=== PATIENT | male | born 1990 | race Caucasian/White ===

== ENCOUNTER 2023-05-20 08:30 | Emergency (ER) | payer OTHER, SELFPAY ==
[2023-05-20 08:33] VITALS: BP 145/99; PULSE 108; RESP 20; O2SAT 97; BMI 47.4
[2023-05-20 08:46] VITALS: O2SAT 97
--- NOTE | 2023-05-20 08:48 | CT_ITS ---
[address] [address] Patient Name: CECE SIERRA MRN: [id number] date: 1990 Sex: M Assigned Patient Location: ER Current Patient Location: .[facility] Accession/Order Number: [id number] Exam Date: 05/20/2023 09:08 Report Date: 05/20/2023 09:47 At the request of: AYDE BECKETT Procedure: CT soft tissue neck w con EXAM: CT soft tissue neck w con CLINICAL INDICATION: tonsillar enlargement for 1 month COMPARISON: None TECHNIQUE: Standard enhanced CT of the neck following intravenous administration of 75 cc of Isovue 370. Axial sections with coronal and sagittal reformats were obtained. Dose reduction techniques were achieved by using automated exposure control and/or adjustment of mA and/or kV according to patient size and/or use of iterative reconstruction technique. FINDINGS: Nasopharynx: Normal. Suprahyoid Neck: The homogeneous bilateral palatine tonsils are enlarged, contact each other in the midline, and result in oropharyngeal airway narrowing. No abnormal striated enhancement pattern. No peritonsillar fat stranding. Oropharynx, oral cavity, parapharyngeal, and retropharyngeal spaces are clear and symmetric. Infrahyoid Neck: Larynx, hypopharynx, and supraglottic area are clear and symmetric. Vocal cords are symmetric. Lymph Nodes: No extranodal soft tissue mass, abnormal enhancement, or fat stranding. Numerous nonenlarged and prominent bilateral cervical chain lymph nodes. Several of these are enlarged with the largest measuring 1.4 cm (left level VA). Given the constraint of beam hardening artifact at the thoracic inlet, there are multiple enlarged supraclavicular lymph nodes. Parotid Glands: Normal. Submandibular Glands: Normal. Thyroid: Normal. Paranasal Sinuses: Trace left maxillary sinus mucosal thickening. Mastoid Air Cells: Well-aerated. Skull Base: Normal. Thoracic Inlet: Visualized lung apices are clear. Vascular Structures: Symmetric and patent. Musculoskeletal: No acute osseous abnormality. Minimal multilevel cervical spondylotic changes. CT/CT soft tissue neck w con IMPRESSION: Enlarged bilateral palatine tonsils contact each other in the midline and result in oropharyngeal airway narrowing. No abnormal enhancement or peritonsillar fat stranding to suggest an infectious/inflammatory process. This finding in conjunction with multiple nonenlarged, prominent, and enlarged lymph nodes in the neck and supraclavicular spaces are concerning for a lymphoproliferative process. This could also be reactive with tonsillar hyperplasia. Further clinical workup is recommended. Electronically authenticated by: ANAYA WAY Date: 05/20/2023 09:47
[2023-05-20 08:55] LABS: Basophils Percent Auto 0.4 % (0.2-2.0); Eosinophils Absolute Auto 0.1 10^3/uL (0.0-0.7); Hematocrit 46.9 % (42.0-54.0); Hemoglobin 15.2 g/dL (14.0-18.0); Immature Granulocytes Abs Auto 0.04 10^3/uL (0.00-0.03); Immature Granulocytes Pct Auto 0.4 % (0.0-0.5); Lymphocytes Absolute Auto 2.6 10^3/uL (1.2-3.8); Lymphocytes Percent Auto 24.1 % (20.5-60.0); Mean Corpuscular HGB Conc 32.4 g/dL (29.9-35.2); Mean Corpuscular Hemoglobin 27.2 pg (25.9-34.0); Mean Corpuscular Volume 84.1 fL (80.0-94.0); Mean Platelet Volume 10.1 fL (9.5-13.5); Monocytes Absolute Auto 0.7 10^3/uL (0.3-0.8); Monocytes Percent Auto 6.8 % (1.7-12.0); Neutrophils Absolute Auto 7.3 10^3/uL (1.4-6.5); Neutrophils Percent Auto 67.3 % (43.0-75.0); Platelet Count 227 10^3/uL (150-450); Red Blood Count 5.58 10^6/uL (4.70-6.10); Red Cell Distribution Width 14.1 % (11.0-15.0); White Blood Count 10.9 10^3/uL (4.0-11.0)
[2023-05-20] MEDS: 0.9 % SODIUM CHLORIDE 1,000 ML 1000 ML IV (09:02)
[2023-05-20 09:06] LABS: Alanine Aminotransferase 28 U/L (16-63); Albumin Globulin Ratio 0.9; Albumin Level 3.8 g/dL (3.4-5.0); Alkaline Phosphatase 96 U/L (46-116); Anion Gap 12.9; Aspartate Amino Transferase 16 U/L (15-37); BUN Creatinine Ratio 14.6; Bilirubin Total 0.7 mg/dL (0.2-1.0); Calcium 8.9 mg/dL (8.5-10.1); Carbon Dioxide 28.9 mmol/L (21.0-32.0); Chloride 102 mmol/L (98-107); Estimated GFR (African America >60 (>=60); Estimated GFR (Non-African Ame >60 (>=60); Globulin 4.3 g/dL; Glucose 136 mg/dL (74-106); Potassium 3.8 mmol/L (3.5-5.1); Sodium 140 mmol/L (136-145); Total Protein 8.1 g/dL (6.4-8.2)
[2023-05-20 09:32] VITALS: BP 124/93; PULSE 88; RESP 18; TEMP 36.7; O2SAT 94
[2023-05-20] MEDS: DEXAMETHASONE SOD PHOS 10 MG/ML VIAL IV (10:25)
[2023-05-20] MEDS: AMPICILLIN SODIUM/SULBACTAM NA 3 GM in 0.9 % SODIUM CHLORIDE 100 ML IV (10:25)
--- NOTE | 2023-05-20 10:30 | ED_ITS ---
HPI - General Adult General Chief complaint: Upper Respiratory Infection Stated complaint: SORE THROAT Time Seen by Provider: 05/20/23 08:40 Source: patient Mode of arrival: walk-in Limitations: no limitations History of Present Illness HPI narrative: Is coming to the office with sore throat that he has been complaining of since February he mentioned that he was supposed to follow-up with ENT for tonsillectomy but apparently was supposed to go for sleep apnea study first Over the last 3 days the patient had worsening of his sore throat he presented to an urgent care where he was given Medrol Dosepak as well as Augmentin The patient is not complaining any nausea or vomiting or difficulty swallowing but he did mention having difficulty breathing sometimes Related Data Previous Rx's Medication Instructions Recorded famotidine 20 mg tablet (Pepcid) 20 mg PO BID #10 tabs 05/20/23 prednisone 50 mg tablet 50 mg PO DAILY 5 days #5 tabs 05/20/23 Allergies Allergy/AdvReac Type Severity Reaction Status Date / Time No Known Drug Allergies Allergy Verified 05/20/23 08:37 Review of Systems ROS Status of ROS 10 or more systems reviewed and unremarkable except as noted in history and below [facility] Social History Smoking status: Never smoker Exam Narrative Exam Narrative: Nurses notes and vital signs reviewed and patient is not hypoxic. General: Well-appearing and in no apparent distress. Skin: Warm, dry, no pallor noted. No rash. Head: Normocephalic, atraumatic. Neck: Supple, left-sided lymphadenopathy Eye: Pupils are equal, round and EOMI. No scleral icterus. Ears, Nose, Mouth, and Throat: TM are clear, no nasal mucosal hypertrophy. The patient tonsils are enlarged almost 2 x 3 cm oval in shape with no exudate no signs of infection Cardiovascular: Regular Rate and Rhythm without murmur, gallop or rub. Respiratory: No accessory muscle use or respiratory distress. Lungs are clear to auscultation, no wheezing, rales or rhonchi Chest Wall: no tenderness Back: No midline thoracic or lumbar vertebral tenderness. No CVA tenderness Musculoskeletal: normal ROM, no calf or popliteal tenderness, no lower extremity edema/swelling GI: Abdomen is soft, non-distended. Normal bowel sounds. No masses appreciated. No tenderness to palpation. No rebound, guarding, or rigidity noted. Neurological: A&O x4. No cranial nerve dysfunction observed. No truncal ataxia. Moves all extremities. Sensation intact. Psychiatric: Cooperative and interactive. Normal mood and affect. Constitutional Vital Signs, click to edit/add: Last Vital Signs Temp 98.1 F 05/20/23 09:32 Pulse 74 05/20/23 12:00 Resp 18 05/20/23 12:00 BP 137/90 05/20/23 12:00 Pulse Ox 98 05/20/23 12:00 O2 Del Method Room Air 05/20/23 12:00 Course Vital Signs Vital signs: Vital Signs Pulse Rate 108 H 05/20/23 08:33 Respiratory Rate 20 05/20/23 08:33 Blood Pressure 145/99 H 05/20/23 08:33 Pulse Oximetry 97 05/20/23 08:33 Oxygen Delivery Method Room Air 05/20/23 08:33 Temperature 98.1 F 05/20/23 09:32 Pulse Rate 74 05/20/23 12:00 Respiratory Rate 18 05/20/23 12:00 Blood Pressure 137/90 05/20/23 12:00 Pulse Oximetry 98 05/20/23 12:00 Oxygen Delivery Method Room Air 05/20/23 12:00 Medical Decision Making MDM Narrative Medical decision making narrative: The patient already had a strep COVID and flu test done by the urgent care and it was noted that the patient CBC and chemistry showed no leukocytosis and it was also noted that his presentation is concerning for possible lymphoproliferative disease specially after the CAT scan shows above-mentioned results of possible multiple lymphadenopathy The patient case was discussed with Dr. Aime Jaime and he mentioned that he will follow-up with the patient on Sunday he received his information the patient also was started on Decadron also has Unasyn discharged home with prednisone 50 mg daily in addition to continuing Augmentin with instruction to come back in case of any symptoms The patient is to follow up with primary care physician in next 2-3 days or to return to the emergency department should any of the signs or symptoms worsen or new symptoms develop. The patient agrees with the following Diagnosis and Nakul atment plan and the patient will be discharged home. Lab Data Labs: Lab Results 05/20/23 Range/Units 08:45 WBC 10.9 (4.0-11.0) 10^3/uL RBC 5.58 (4.70-6.10) 10^6/uL Hgb 15.2 (14.0-18.0) g/dL Hct 46.9 (42.0-54.0) % MCV 84.1 (80.0-94.0) fL MCH 27.2 (25.9-34.0) pg MCHC 32.4 (29.9-35.2) g/dL RDW 14.1 (11.0-15.0) % Plt Count 227 (150-450) 10^3/uL MPV 10.1 (9.5-13.5) fL Neut % (Auto) 67.3 (43.0-75.0) % Lymph % (Auto) 24.1 (20.5-60.0) % [place] % (Auto) 6.8 (1.7-12.0) % Eos % (Auto) 1.0 (0.9-7.0) % Baso % (Auto) 0.4 (0.2-2.0) % Neut # (Auto) 7.3 H (1.4-6.5) 10^3/uL Lymph # (Auto) 2.6 (1.2-3.8) 10^3/uL [place] # (Auto) 0.7 (0.3-0.8) 10^3/uL Eos # (Auto) 0.1 (0.0-0.7) 10^3/uL Baso # (Auto) 0.0 (0.0-0.1) 10^3/uL Abs Immat Gran (auto) 0.04 H (0.00-0.03) 10^3/uL Imm/Tot Granulo (auto) 0.4 (0.0-0.5) % Sodium 140 (136-145) mmol/L Potassium 3.8 (3.5-5.1) mmol/L Chloride 102 (98-107) mmol/L Carbon Dioxide 28.9 (21.0-32.0) mmol/L Anion Gap 12.9 BUN 12.0 (7.0-18.0) mg/dL Creatinine 0.82 (0.70-1.30) mg/dL Est GFR ( Amer) >60 (>=60) Est GFR (Non-Af Amer) >60 (>=60) BUN/Creatinine Ratio 14.6 Glucose 136 H (74-106) mg/dL Lactate 1.0 (0.4-2.0) mmol/L Calcium 8.9 (8.5-10.1) mg/dL Total Bilirubin 0.7 (0.2-1.0) mg/dL AST 16 (15-37) U/L ALT 28 (16-63) U/L Alkaline Phosphatase 96 (46-116) U/L Total Protein 8.1 (6.4-8.2) g/dL Albumin 3.8 (3.4-5.0) g/dL Globulin 4.3 g/dL Albumin/Globulin Ratio 0.9 Discharge Plan Discharge Chief Complaint: Upper Respiratory Infection Clinical Impression: Swelling of tonsil Patient Disposition: Home, Self-Care Time of Disposition Decision: 11:42 Condition: Good Mode of Transportation: Private Vehicle Prescriptions / Home Meds: New prednisone 50 mg tablet 50 mg PO DAILY 5 Days Qty: 5 0RF famotidine [Pepcid] 20 mg tablet 20 mg PO BID Qty: 10 0RF Instructions: Tonsillitis (ED) Additional Instructions: Dr. Sin Cat [facility] will follow up with you on Sunday They will call you for making the appointments but there is a phone number in case needed for [phone] Stand Alone Forms: Portal Instructions Referrals: Physician,Non-Staff, MD [Primary Care Provider] - 1 week Discharge Date/Time: 05/20/23 12:02
[2023-05-20 12:00] VITALS: BP 137/90; PULSE 74; RESP 18; O2SAT 98
== END 2023-05-20 12:02 | disposition home or self-care (01) ==
PROVIDERS: Emergency Provider Emergency Medicine
DX: J35.1 Hypertrophy of tonsils (principal)
CPT/HCPCS: 36415; 70491; 80053; 83605; 85025; 96365; 96375; 99284; J1100; Q9967

== ENCOUNTER 2023-06-17 18:25 | Emergency (ER) | payer OTHER, SELFPAY ==
[2023-06-17] VITALS (7 sets, daily range): BP systolic 140; BP diastolic 92; PULSE 110; RESP 22; TEMP 37.3; O2SAT 94–97; BMI 45.8
--- OUTSIDE RECORDS SUMMARY | 2023-06-17 18:30 | XMS_ITS | CCD ---
Author Name Unknown Address [address] [place] [address] Organization [facility] Care Team Providers Care Meter Reading Clerk Name Role Phone Chelsey Starr Admitting Unavailable Chelsey Starr Attending Unavailable ALTAF, DR JAZMIN Fish Admitting Unavailable ALTAF, DR JAZMIN Fish Consulting Unavailable DR JAZMIN SOLITARIO Attending Unavailable NAIN, DR AINSLEY Waters Primary Care Unavailable MATTHEW DOBBINS Consulting Unavailable Darlin Parham Unavailable TERI NUNEZ Admitting Unavailable TERI NUNEZ Attending Unavailable NAIN, DR AINSLEY Waters Primary Care Unavailable Shola Esposito Consulting Unavailable TERI NUNEZ Consulting Unavailable Jennifer Cisneros Unavailable Medications Current Medications Medication Drug Class(es) Dates Sig (Normalized) Sig (Original) amoxicillin 875 mg oral tablet (1 source) Penicillin-class Antibacterial Start: 3 take 1 tablet by mouth every twelve hours Amoxicillin 875 MG 1 capsule Orally Twice a day for 10 days May, Active Losartan (1 source) Angiotensin 2 Receptor Carley Losartan Potassium Active metFORMIN (3 sources) Biguanide metFORMIN HCl Ac tive methylPREDNISolone 4 mg oral tablet (1 source) Corticosteroid Start: 3 methylPREDNISolone 4 MG as directed Orally for 6 May, Active Ozempic (1 source) Ozempic Active rosuvastatin (3 sources) HMG-CoA Reductase Inhibitor Rosuvastatin Calcium Active Steglatro (3 sources) Steglatro Active Completed/Discontinued Medications Medication Drug Class(es) Dates Sig (Normalized) Sig (Original) cyclobenzaprine hydrochloride 10 mg oral tablet (2 sources) Muscle Relaxant Start: 08-22-2022 take 1 tablet by mouth three times daily as needed for muscle spasms Cyclobenzaprine HCl 10 MG 1 tab(s) Orally 3 times a day prn muscle spasms Aug, Not-Taking Ketorolac Tromethamin (2 sources) Start: 08-22-2022 Ketorolac Tromethamin Aug, 30 mg Lisinopril (3 sources) Angiotensin Converting Enzyme Inhibitor Lisinopril Not-Taking Lisinopril Activ e predniSONE 20 mg oral tablet (2 sources) Start: 08-22-2022 take 1 tablet by mouth every twelve hours predniSONE 20 MG 1 tablet Orally 2 times a day for 5 day(s) Aug, Not-Taking triamcinolone acetonide 40 mg/ml injectable suspension (2 sources) Corticosteroid Start: 08-22-2022 Kenalog-40 Aug, 40 mg Problems Active Problems Problem Classification Problem Date Documented Da te Episodic/Chronic Acute and chronic tonsillitis (1 source) Acute tonsillitis, unspecified Episodic Other nervous system disorders (4 sources) Anesthesia of skin; Translations: [ANESTHESIA OF SKIN] Onset: 06-18-2021 Episodic Other upper respiratory disease (3 sources) Seasonal allergy; Translations: [Other seasonal allergic rhinitis] Chronic Other upper respiratory disease (1 source) Allergic rhinitis, unspecified; Translations: [Allergic rhinitis, unspecified seasonality, unspecified trigger J30.9] Onset: 03-20-2021 Resolved: 03-20-2021 Chronic Other upper respiratory infections (1 source) Acute pharyngitis, unspecified Episodic Spondylosis; intervertebral disc disorders; other back problems (4 sources) Radiculopathy, cervical region; Translations: [RADICULOPATHY CERVICAL REGION] Onset: 09-01-2022 Episodic Sprains and strains (1 source) Strain of other muscles, fascia and tendons at shoulder and upper arm level, right arm, initial encounter Episodic Viral infection (1 source) COVID-19; Translations: [COVID-19] Onset: 06-20-2021 Past or Other Problems Problem Classification Problem Date Documented Da te Episodic/Chronic Immunizations and screening for infectious disease (1 source) Contact with and (suspected) exposure to other viral communicable diseases; Translations: [Contact with and (suspected) exposure to other viral communicable diseases Z20.828] Onset: 03-20-2021 Resolved: 03-20-2021 Episodic Results Test Name Value Interpretation Reference Range Facility COVID + FLU Quick Testingon 12-01-2023 SARS-CoV-2 (COVID-19) RNA DARA+probe Ql (Unsp spec) Negative [facility] Other COVID + FLU Quick Testing Negative [facility] Other Quick Strepon 05-18-2023 S. pyogenes Org specific cx Ql (Throat) Negative [facility] Other Quick Strep [facility] Other XR CSPINE MIN 4 VIEWSon 08-16 XR CSPINE MIN 4 VIEWS EXAMINATION: XR CSPINE MIN 4 VIEWS HISTORY: Cervical radiculopathy COMPARISON: No relevant comparison available. FINDINGS: BONES: Loss of normal cervical lordosis. No acute fracture or spondylolisthesis. Mild degenerative spondylosis DISC SPACES: Normal. No significant disc height narrowing, subluxation, or endplate abnormality. PARASPINOUS: Negative. No paraspinous abnormality is seen. OTHER: Negative. IMPRESSION: Mild degenerative changes Electronically authenticated by: SHOLA ESPOSITO Date: 2022-09-01 15:32 Normal [facility] CT HEAD WO CONon 06-19-2021 CT HEAD WO CON EXAM: CT HEAD WO CON INDICATION: Cough with left-handed numbness reported. COMPARISON: None. TECHNIQUE: CT of the head without intravenous contrast. Dose reduction techniques were achieved by using automated exposure control and/or adjustment of mA and/or kV according to patient size and/or use of iterative reconstruction technique. FINDINGS: There is no evidence of acute intracranial hemorrhage, extra-axial collection, mass effect, midline shift, herniation or hydrocephalus. The ventricles, sulci and cisterns are age appropriate. 7 mm low-attenuation focus on image 17 of series 5 suggests a possible prior area of lacunar infarct or a prominent perivascular space within the basal ganglia on the left. There is no geographic low attenuation in a major vascular territory identified elsewhere. The sulci extend to the inner table of the calvarium. Slight areas of linear artifact on the coronal reconstructed images can be identified particularly on image 10 of series 6 and superiorly on image 35 through 53 series 6. Calcification of the pineal gland is noted. There is significant mucosal thickening and opacification involving nearly the entire right sphenoid sinus with opacification of the posterior ostiomeatal units bilaterally. Sclerotic type pneumatization of the mastoid air cells right greater than left is noted. Paranasal sinuses and mastoid air cells are otherwise clear with only minimal mucosal thickening in the dependent left sphenoid. No acute calvarial injury is seen. IMPRESSION: No evidence of acute intracranial hemorrhage, extra-axial collection, mass effect or hydrocephalus. Low-attenuation focus in the left basal ganglia as described measuring 7 mm suggests a possible prior lacunar infarct or possible prominent perivascular space. It should be noted that acute infarct, demyelinating processes, hypoxic injury, or other pathology may not immediately be seen on CT imaging. Recommend MRI for further evaluation if clinically indicated. Electronically authenticated by: MATTHEW DOBBINS Date: 2021-06-18 23:11 Normal [facility]BUMIN, URINE 1.7 mg/dL Normal See Note: [facility] Comment on above: Result Comment: Refe rence Range: Reference Range Not established Performed By: #### 6 517, 7600, 32729 #### [facility] [address], [address] [place] [address] Independent Video Producer: Tomás Harris MD ALBUMIN/CREATININE RATIO, RANDOM URINE 22 mcg/mg creat Normal <30 [facility] Comment on above: Result Comment: The ADA defines abnormalities in albumin excretion as follows: Albuminuria Category Result (mcg/mg creatinine) Normal to Mildly increased <30 Moderately increased 30-299 Severely increased > OR = 300 The ADA recommends that at least two of three specimens collected within a 3-6 month period be abnormal before considering a patient to be within a diagnostic category. Performed By: #### 6 517, 7600, 13130 #### [facility] [address], [address] [place] [address] Independent Video Producer: Tomás Harris MD Creatinine (U) [Mass/Vol] 76 mg/dL Normal 20-320 [facility] Comment on above: Performed By: #### 6 517, 7600, 98853 #### [facility] [address], [address] [place] [address] Independent Video Producer: Tomás Harris MD COMPREHENSIVE METABOLIC PANE [place] 04-04-2021 Albumin [Mass/Vol] 4.3 g/dL Normal 3.6-5.1 [facility] Comment on above: Performed By: #### 6 517, 7600, 71147 #### [facility] of [address], [address] [place] [address] Independent Video Producer: Tomás Harris MD Albumin/Globulin [Mass ratio] 1.5 {ratio} Normal 1.0-2.5 [facility] Comment on above: Performed By: #### 6 517, 7600, 03537 #### [facility] of [address], [address] [place] [address] Independent Video Producer: Tomás Harris MD ALP [Catalytic activity/Vol] 77 U/L Normal 36-130 [facility] Comment on above: Performed By: #### 6 517, 7600, 23270 #### [facility] of [address], [address] [place] [address] Independent Video Producer: Tomás Harris MD ALT [Catalytic activity/Vol] 28 U/L Normal 9-46 [facility] Comment on above: Performed By: #### 6 517, 7600, 73699 #### [facility] of [address], [address] [place] [address] Independent Video Producer: Tomás Harris MD AST [Catalytic activity/Vol] 18 U/L Normal 10-40 [facility] Comment on above: Performed By: #### 6 517, 7600, 57380 #### [facility] of [address], [address] [place] [address] Independent Video Producer: Tomás Harris MD Bilirubin [Mass/Vol] 0.7 mg/dL Normal 0.2-1.2 [facility] Comment on above: Performed By: #### 6 517, 7600, 04370 #### [facility] of [address], [address] [place] [address] Independent Video Producer: Tomás Harris MD BUN/CREATININE RATIO NOT APPLICABLE Normal 6-22 [facility] Comment on above: Performed By: #### 6 517, 7600, 77487 #### [facility] of [address], [address] [place] [address] Independent Video Producer: Tomás Harris MD Calcium [Mass/Vol] 9.4 mg/dL Normal 8.6-10.3 [facility] Comment on above: Performed By: #### 6 517, 7600, 36471 #### [facility] [address], [address] [place] [address] Independent Video Producer: Tomás Harris MD Chloride [Moles/Vol] 102 mmol/L Normal 98-110 [facility] Comment on above: Performed By: #### 6 517, 7600, 73730 #### [facility] [place] [address] Independent Video Producer: Tomás Harris MD CO2 [Moles/Vol] 31 mmol/L Normal 20-32 [facility] Comment on above: Performed By: #### 6 517, 7600, 26364 #### [facility] of [address], [address] [place] [address] Independent Video Producer: Tomás Harris MD Creatinine [Mass/Vol] 0.83 mg/dL Normal 0.60-1.35 [facility] Comment on above: Performed By: #### 6 517, 7600, 39285 #### [facility] [place] [address] Independent Video Producer: Tomás Harris MD eGFR NON-AFR. SWEDISH 116 mL/min/1.73m2 Normal > OR = 60 [facility] Comment on above: Performed By: #### 6 517, 7600, 96550 #### [facility] of [place] [address] Independent Video Producer: Tomás Harris MD GFR/1.73 sq M.predicted among blacks MDRD (S/P/Bld) [Vol rate/Area] 135 mL/min/{1.73_m2} Normal > OR = 60 [facility] Comment on above: Performed By: #### 6 517, 7600, 36267 #### [facility] of [address], [address] [place] [address] Independent Video Producer: Tomás Harris MD Globulin (S) [Mass/Vol] 2.9 g/dL Normal 1.9-3.7 [facility] Comment on above: Performed By: #### 6 517, 7600, 41857 #### [facility] [place] [address] Independent Video Producer: Tomás Harris MD Glucose [Mass/Vol] 144 mg/dL High 65-139 [facility] Comment on above: Result Comment: Non-fasting reference interval For someone without known diabetes, a glucose value >125 mg/dL indicates that they may have diabetes and this should be confirmed with a follow-up test. Performed By: #### 6 517, 7600, 49457 #### [facility] [place] [address] Independent Video Producer: Tomás Harris MD Potassium [Moles/Vol] 4.2 mmol/L Normal 3.5-5.3 [facility] Comment on above: Performed By: #### 6 517, 7600, 19016 #### [facility] [place] [address] Independent Video Producer: Tomás Harris MD Protein [Mass/Vol] 7.2 g/dL Normal 6.1-8.1 [facility] Comment on above: Performed By: #### 6 517, 7600, 50601 #### [facility] [place] [address] Independent Video Producer: Tomás Harris MD Sodium [Moles/Vol] 139 mmol/L Normal 135-146 [facility] Comment on above: Performed By: #### 6 517, 7600, 86966 #### [facility] [place] [address] Independent Video Producer: Tomás Harris MD Urea nitrogen [Mass/Vol] 16 mg/dL Normal 7-25 [facility] Comment on above: Performed By: #### 6 517, 7600, 63935 #### [facility] [address] [place] [address] Independent Video Producer: Tomás Harrsi MD LIPID PANEL, [facility] [place] 03-18 Cholesterol [Mass/Vol] 140 mg/dL Normal <200 [facility] Comment on above: Order Comment: FASTI NG:NO FASTING: NO Performed By: #### 6 517, 7600, 84241 #### [facility] [address], [address] [place] [address] Independent Video Producer: Tomás Harris MD Cholesterol in HDL [Mass/Vol] 35 mg/dL Low > OR = 40 [facility] Comment on above: Order Comment: FASTI NG:NO FASTING: NO Performed By: #### 6 517, 7600, 97267 #### [facility] [address], [address] [place] [address] Independent Video Producer: Tomás Harris MD Cholesterol in LDL [Mass/Vol] 76 mg/dL Normal [facility] Comment on above: Order Comment: FASTI NG:NO FASTING: NO Result Comment: Refe rence range: <100 Desirable range <100 mg/dL for primary prevention; <70 mg/dL for patients with CHD or diabetic patients with > or = 2 CHD risk factors. LDL-C is now calculated using the Jeremiah-Barbara calculation, which is a validated novel method providing better accuracy than the Friedewald equation in the estimation of LDL-C. Jeremiah PANDEY et al. WILBERT. 2013;310(19): 7796-6091 (http://education.Deluux.Arkami/faq/ZMB000) Performed By: #### 6 517, 7600, 42906 #### [facility] [address], [address] [place] [address] Independent Video Producer: Tomás Harris MD Cholesterol.total/C holesterol in HDL [Mass ratio] 4.0 {ratio} Normal <5.0 [facility] Comment on above: Order Comment: FASTI NG:NO FASTING: NO Performed By: #### 6 517, 7600, 72351 #### [facility] [address], [address] [place] [address] Independent Video Producer: Tomás Harris MD NON HDL CHOLESTEROL 105 mg/dL (calc) Normal <130 [facility] Comment on above: Order Comment: FASTI NG:NO FASTING: NO Result Comment: For patients with diabetes plus 1 major ASCVD risk factor, treating to a non-HDL-C goal of <100 mg/dL (LDL-C of <70 mg/dL) is considered a therapeutic option. Performed By: #### 6 517, 7600, 90193 #### [facility] [address], [address] [place] [address] Independent Video Producer: Tomás Harris MD Triglyceride [Mass/Vol] 197 mg/dL High <150 [facility] Comment on above: Order Comment: FASTI NG:NO FASTING: NO Performed By: #### 6 517, 7600, 64052 #### [facility] [address], [address] [place] [id number] Independent Video Producer: Tomás Harris MD COVID Quick Testingon 2020 Result Negative [facility] Other XR ankle RT min 3V*on 2018 XR ankle RT min 3V* [facility] [place] [address] [place] [address] XRay Report Signed Patient: Tino Golden MR#: [id number] : 1990 Acct:[id number] Age/Sex: 28 / M ADM Date: 09/29/18 [facility] Room: Type: [facility] Attending Dr: Chelsey PADRON Ordering Provider: Chelsey Starr Date of Service: 09/29/18 XR/XR foot RT min 3V*: S99.911A ([id number]) XR/XR ankle RT min 3V*: S99.911A Copies to: Chelsey Starr 3 views right foot HISTORY: Right foot and ankle injury today. Continued pain medial portion of the ankle and foot. No fracture or dislocation seen. XR/XR foot RT min 3V* IMPRESSION: No fracture. 3 views right ankle No fracture or dislocation seen. Mild degeneration noted. IMPRESSION: No fracture. Impression dictated by: Naeem Berumen M.D.09/29/2018 1:35 PM Dictation Location: [facility] Transcribed By: ERIN 09/29/18 133 Dictated By: Naeem Berumen DO 09/29/181332 Signed By: 09/29/18 1335 [facility] Vital Signs Date Time Vital Sign Value Performing Clinician Facility 05-18-2023 11:00-0500 Body height 177.8 cm Jennifer Cisneros Other [facility] Other 05-18-2023 11:00-0500 Body mass index (BMI) [Ratio] 48.78 kg/m2 Jennifer Cisneros Other [facility] Other 05-18-2023 11:00-0500 Body temperature 98.1 [degF] Jennifer Cisneros Other [facility] Other 05-18-2023 11:00-0500 Body weight 154.22 kg Jennifer Cisneros Other [facility] Other 05-18-2023 11:00-0500 Diastolic blood pressure 67 mm[Hg] Jennifer Cisneros Other [facility] Other 05-18-2023 11:00-0500 Respiratory rate 18 /min Jennifer Cisneros Other [facility] Other 05-18-2023 11:00-0500 SaO2% (BldA) [Mass fraction] 98 % Jennifer Cisneros Other [facility] Other 05-18-2023 11:00-0500 Systolic blood pressure 111 mm[Hg] Jennifer Cisneros Other [facility] Other 08-22-2022 09:55-0500 Body height 177.8 cm Darlin Dione Other [facility] Other 08-22-2022 09:55-0500 Body mass index (BMI) [Ratio] 50.87 kg/m2 Darlin Dione Other [facility] Other 08-22-2022 09:55-0500 Body temperature 98.3 [degF] Darlin Dione Other [facility] Other 08-22-2022 09:55-0500 Body weight 160.85 kg Darlin Dione Other [facility] Other 08-22-2022 09:55-0500 Diastolic blood pressure 86 mm[Hg] Darlin Dione Other [facility] Other 08-22-2022 09:55-0500 Respiratory rate 18 /min Darlin Dione Other [facility] Other 08-22-2022 09:55-0500 SaO2% (BldA) [Mass fraction] 97 % Darlin Dione Other [facility] Other 08-22-2022 09:55-0500 Systolic blood pressure 124 mm[Hg] Darlin Dione Other [facility] Other 03-20-2021 11:30-0400 Body height 177.8 cm Darlin Dione Other [facility] Other 03-20-2021 11:30-0400 Body mass index (BMI) [Ratio] 54.52 kg/m2 Darlin Dione Other [facility] Other 03-20-2021 11:30-0400 Body temperature 96.6 [degF] Darlin Parham Other [facility] Other 03-20-2021 11:30-0400 Body weight 172.37 kg Darlin Parham Other [facility] Other 03-20-2021 11:30-0400 SaO2% (BldA) [Mass fraction] 96 % Darlin Parham Other [facility] Other Encounters Encounter Date Encounter Type Care Provider Facility Start: 05-18-2023 End: 05-18-2023 ambulatory Jennifer Cisneros Other [facility] Other Start: 05-18-2023 Office outpatient visit 15 minutes Jennifer Cisneros [facility] Start: 09-01-2022 End: 09-02-2022 ambulatory TERI NUNEZ Facility:[facility] Start: 08-22-2022 End: 08-22-2022 ambulatory Darlin Blandmond Other [facility] Other Start: 08-22-2022 Office outpatient visit 15 minutes Darlin Dione [facility] Start: 06-18-2021 End: 06-19-[address] JAZMIN SOLITARIO Facility:[facility] Start: 03-20-2021 (URG) Urgent Care Visit Darlin Dione [facility] Start: 09-29-2018 End: 09-29-2018 Patient encounter procedure Chelsey Starr Facility:[facility] Payers Date Payer Category Payer Self-pay 2018 Unknown [id number] 1990 Unknown [id number] 2.16.84 [id number] 1989 Unknown [id number] 2.16.84 [id number] 1960 Unknown [id number] 1960 Unknown [id number] 2.16.8 [id number] Unknown [id number] 2.16.84 [id number] Social History Date Type Detail Facility Unknown if ever smoked [facility] Other Sex Assigned At Sex Assigned At Bir th [facility] Other Evaluation note 05-18-2023 Note Date & Type Note Facility 05-18-2023 Evaluation note Encounter Date Diagnosis Assessment Notes May, Sore throat (ICD-10 - J02.9) May, Tonsillitis (ICD-10 - J03.90) Advised patient that rapid COVID/influenza A/B and rapid strep test were negative today in office. Based on physical exam, will treat with antibiotic and steroid. Reviewed allergies and recent antibiotic use. Instructed patient to take antibiotic steroid as prescribed, with food and plenty of water, complete entire course even if feeling better. Advised patient that they are contagious for 24 hours after starting antibiotic. Discussed infection control and good hand hygiene. New tooth brush in 2-3 days after starting antibiotic. Supportive care as directed. Push fluids and rest, Tylenol or Motrin as needed for fever or discomfort, warm salt water gargles, throat lozenges as needed. Patients symptoms should improve in the next 48 hours, eval by PCP if symptoms have not improved with treatment. Discussed in depth warning symptoms that require immediate eval. Patient verbalizes understanding and is agreeable to treatment plan [facility] Other Evaluation note 08-22-2022 Note Date & Type Note Facility 08-22-2022 Evaluation note Encounter Date Diagnosis Assessment Notes Aug, Strain of right trapezius muscle, initial encounter (ICD-10 - S46.811A) Drink plenty fluids, get plenty of rest. Take the prednisone as prescribed until gone starting this evening. Take the cyclobenzaprine as prescribed as needed for muscle stiffness and pain. Be aware the cyclobenzaprine will make you very tired. Also be aware that the prednisone will raise your blood sugars. Follow-up with your family physician if no improvement in 3 to 4 days. Aug, Other Neck sprain material was printed [facility] Other Clinical Note 06-19-2021 Note Date & Type Note Facility 06-19-2021 Note PROCEDURE: XR CHEST 1 V REASON FOR STUDY/CLINICAL HISTORY: COUGH. COMPARISON STUDY: None available at time of dictation. TECHNIQUE: Single view(s) of the chest presented for interpretation. FINDINGS: Body habitus obscures evaluation and slightly obscures the costophrenic angles. Very subtle left basilar and lingular atelectasis with slight central perihilar bronchial thickening bilaterally. Normal cardiomediastinal silhouette for this projection and level of inspiration. No focal consolidation, edema, or large effusion. No pneumothorax. No acute appearing focal significant bony abnormality. IMPRESSION: Mild bronchial thickening as described with subtle adjacent atelectatic change, left greater than right. No consolidation, large pleural effusion, or pneumothorax. Electronically authenticated by: MATTHEW DOBBINS Date: 2021-06-18 23:11 [facility] Evaluation note 03-20-2021 Note Date & Type Note Facility 03-20-2021 Evaluation note Encounter Date Diagnosis Assessment Notes Mar, Contact with and (suspected) exposure to other viral communicable diseases (ICD-10 - Z20.828) Mar, Allergic rhinitis, unspecified seasonality, unspecified trigger (ICD-10 - J30.9) Drink plenty fluids, get plenty of rest. Consider taking an antihistamine such as Zyrtec or Jane daily for allergy type symptoms. Take Tylenol or Motrin as needed for aches pains or fevers. Follow-up with your family physician if no improvement in 2 to 3 days. Mar, Other Additional time spent conducting pre-visit phone call, screening for symptoms, instructions on social distancing, application and removal of PPE, and cleaning of examination room, equipment and supplies was preformed. Patient education given for testing methodology and results. Patient care instructions given in writting by [facility] At Home document. [facility] Other History general Narrative - Reported Note Date & Type Note Facility History general Narrative - Reported Type Medical History diabetes mallitus Medical History hypertension Medical History hypercholesterolemia Surgical History adenoidectomy [facility] Other Summary Purpose Family History No Family History Records FoundNo Family History Records FoundNo Family History Records FoundNo Family History Records Found Advance Directives No Advanced Directives Records FoundNo Advanced Directives Records FoundNo Advanced Directives Records FoundNo Advanced Directives Records Found Additional Source Comments (unrecognized sect ion and content) No Status Records FoundNo Status Records FoundNo Status Records FoundNo Status Records Found INFORMATION SOURCE (unrecogn ized section and content) DATE CREATED AUTHOR 09/30/2018 [facility] DATE CREATED AUTHOR AUTHOR'S ORGANIZ ATION 04/17/2021 [facility] DATE CREATED AUTHOR AUTHOR'S ORGANIZ ATION 06/21/2021 [facility] DATE CREATED AUTHOR AUTHOR'S ORGANIZ ATION 09/10/2022 [facility] REASON FOR VISIT (unrecogniz ed section and content) #7 BRAVO EDGE, COUGH, CONGEST IONneck painSORE THROAT FOR RECORDS PERTAINING TO PATIENTS WHO ARE OR HAVE BEEN ENROLLED IN A CHEMICAL DEPENDENCY/SUBSTANCEABUSE PROGRAM, SOME INFORMATION MAY BE OMITTED. This clinical summary was aggregated from multiple sources. Caution should be exercised in using it in the provision of clinical care. This summary normalizes information from multiple sources, and as a consequence, information in this document may materially change the coding, format and clinical context of patient data. In addition, data may be omitted in some cases. CLINICAL DECISIONS SHOULD BE BASED ON THE PRIMARY CLINICAL RECORDS. [employer] [facility]. provides no warranty or guarantee of the accuracy or completeness of information in this document.
[2023-06-17 19:09] LABS: Basophils Absolute Auto 0.1 10^3/uL (0.0-0.1); Basophils Percent Auto 0.9 % (0.2-2.0); Eosinophils Absolute Auto 0.4 10^3/uL (0.0-0.7); Hematocrit 41.8 % (42.0-54.0); Hemoglobin 13.5 g/dL (14.0-18.0); Immature Granulocytes Abs Auto 0.02 10^3/uL (0.00-0.03); Immature Granulocytes Pct Auto 0.3 % (0.0-0.5); Lymphocytes Absolute Auto 2.7 10^3/uL (1.2-3.8); Lymphocytes Percent Auto 35.8 % (20.5-60.0); Mean Corpuscular HGB Conc 32.3 g/dL (29.9-35.2); Mean Corpuscular Hemoglobin 26.4 pg (25.9-34.0); Mean Corpuscular Volume 81.8 fL (80.0-94.0); Mean Platelet Volume 10.1 fL (9.5-13.5); Monocytes Absolute Auto 0.7 10^3/uL (0.3-0.8); Monocytes Percent Auto 9.1 % (1.7-12.0); Neutrophils Absolute Auto 3.7 10^3/uL (1.4-6.5); Neutrophils Percent Auto 48.9 % (43.0-75.0); Platelet Count 240 10^3/uL (150-450); Red Blood Count 5.11 10^6/uL (4.70-6.10); Red Cell Distribution Width 14.3 % (11.0-15.0); White Blood Count 7.6 10^3/uL (4.0-11.0)
[2023-06-17] MEDS: 0.9 % SODIUM CHLORIDE 1,000 ML 1000 ML IV (19:09)
[2023-06-17] MEDS: METHYLPREDNISOLONE SOD SUCC PF 125 MG/2 ML VIAL IVP (19:24)
[2023-06-17 19:27] LABS: Mono Screen NEGATIVE (NEGATIVE)
[2023-06-17 19:28] LABS: Lactate/Lactic Acid 1.3 mmol/L (0.4-2.0)
[2023-06-17 19:35] LABS: Alanine Aminotransferase 18 U/L (16-63); Albumin Globulin Ratio 0.8; Alkaline Phosphatase 87 U/L (46-116); Aspartate Amino Transferase 13 U/L (15-37); BUN Creatinine Ratio 23.9; Bilirubin Total 0.5 mg/dL (0.2-1.0); Calcium 8.8 mg/dL (8.5-10.1); Carbon Dioxide 27.6 mmol/L (21.0-32.0); Chloride 100 mmol/L (98-107); Estimated GFR (African America >60 (>=60); Estimated GFR (Non-African Ame >60 (>=60); Globulin 3.8 g/dL; Glucose 177 mg/dL (74-106); Potassium 3.6 mmol/L (3.5-5.1); Sodium 137 mmol/L (136-145); Total Protein 6.8 g/dL (6.4-8.2)
[2023-06-17 19:40] LABS: Magnesium 1.7 mg/dL (1.8-2.4)
[2023-06-17 19:44] LABS: Internal Control Within Normal Limits; Strep A Antigen Screen Negative
[2023-06-17 19:48] LABS: SARS-CoV-2 Ag NEGATIVE (NEGATIVE)
--- NOTE | 2023-06-17 19:56 | ED.GENADUL1 ---
HPI - General Adult General Chief complaint: Shortness of Breath/Dyspnea Stated complaint: Sore Throat Time Seen by Provider: 06/17/23 18:45 Source: patient Mode of arrival: walk-in History of Present Illness HPI narrative: Patient presents with tonsillar swelling that worsened over the alst 24 hours. He felt like the tonsils were touching . He had initially been evaluated in the ED on 05/20/23 and had blood tests, CT ST neck and was referred to ENT, who he saw at [facility]. He has surgery scheduled 05/25/24. No fever or chills. No vomiting or diarrhea. Related Data Home Medications Medication Instructions Recorded Confirmed ertugliflozin 15 mg tablet 15 mg PO DAILY 06/17/23 06/17/23 (Steglatro) losartan 100 mg tablet 100 mg PO DAILY 06/17/23 06/17/23 metformin 500 mg tablet,extended 500 mg PO DAILY 06/17/23 06/17/23 release 24 hr Previous Rx's Medication Instructions Recorded famotidine 20 mg tablet (Pepcid) 20 mg PO BID #10 tabs 05/20/23 prednisone 20 mg tablet 40 mg (2 x 20 mg) PO DAILY 7 days 06/17/23 #14 tabs Allergies Allergy/AdvReac Type Severity Reaction Status Date / Time ibuprofen AdvReac Intermediate Verified 06/17/23 18:46 [facility] Social History Smoking status: Never smoker Exam Narrative Exam Narrative: Nurses notes and vital signs reviewed and patient is not hypoxic. afebrile General: Well-appearing and in no apparent distress. Skin: Warm, dry, no pallor noted. No rash. Head: Normocephalic, atraumatic. Neck: Supple, non-tender. No submental or cervical lymphadenopathy Eye: Pupils are equal, round and EOMI. No scleral icterus. Ears, Nose, Mouth, and Throat: TM are clear, no nasal mucosal hypertrophy. Minimal posterior oropharynx erythema, uvula is mid-line, tonsillar prominence bilaterally. Oral mucosa is moist Cardiovascular: No tachycardia on my exam Respiratory: No accessory muscle use or respiratory distress. Lungs are clear to auscultation, no wheezing, rales or rhonchi Neurological: A&O x4. No cranial nerve dysfunction observed. No truncal ataxia. Moves all extremities. Sensation intact. Psychiatric: Cooperative and interactive. Normal mood and affect. Constitutional Vital Signs, click to edit/add: Last Vital Signs Temp 99.1 F 06/17/23 18:29 Pulse 110 H 06/17/23 18:29 Resp 22 06/17/23 18:29 BP 140/92 H 06/17/23 18:29 Pulse Ox 94 L 06/17/23 19:20 O2 Del Method Room Air 06/17/23 18:29 Course Vital Signs Vital signs: Vital Signs Temperature 99.1 F 06/17/23 18:29 Pulse Rate 110 H 06/17/23 18:29 Respiratory Rate 22 06/17/23 18:29 Blood Pressure 140/92 H 06/17/23 18:29 Pulse Oximetry 97 06/17/23 18:29 Oxygen Delivery Method Room Air 06/17/23 18:29 Temperature 99.1 F 06/17/23 18:29 Pulse Rate 110 H 06/17/23 18:29 Respiratory Rate 22 06/17/23 18:29 Blood Pressure 140/92 H 06/17/23 18:29 Pulse Oximetry 94 L 06/17/23 19:20 Oxygen Delivery Method Room Air 06/17/23 18:29 Medical Decision Making MDM Narrative Medical decision making narrative: Peripheral IV established blood drawn and sent for testing. He also had swabs for strep screening and a Monospot was ordered. His workup was negative -normal white blood cell count, negative Monospot, negative strep screen. He received IV Solu-Medrol in the emergency department. On recheck at 8pm he said that overall he felt better with less significant tonsillar swelling. We discussed the importance of follow-up. He was discharged with a prescription for oral prednisone and I impressed upon him the importance of following up with his [facility] surgeon. Encouraged him to go to [facility] if he feels as if his symptoms worsen as we do not have ENT coverage here at [place]. Lab Data Labs: Lab Results 06/17/23 06/17/23 Range/Units 18:30 19:30 WBC 7.6 (4.0-11.0) 10^3/uL RBC 5.11 (4.70-6.10) 10^6/uL Hgb 13.5 L (14.0-18.0) g/dL Hct 41.8 L (42.0-54.0) % MCV 81.8 (80.0-94.0) fL MCH 26.4 (25.9-34.0) pg MCHC 32.3 (29.9-35.2) g/dL RDW 14.3 (11.0-15.0) % Plt Count 240 (150-450) 10^3/uL MPV 10.1 (9.5-13.5) fL Neut % (Auto) 48.9 (43.0-75.0) % Lymph % (Auto) 35.8 (20.5-60.0) % [place] % (Auto) 9.1 (1.7-12.0) % Eos % (Auto) 5.0 (0.9-7.0) % Baso % (Auto) 0.9 (0.2-2.0) % Neut # (Auto) 3.7 (1.4-6.5) 10^3/uL Lymph # (Auto) 2.7 (1.2-3.8) 10^3/uL [place] # (Auto) 0.7 (0.3-0.8) 10^3/uL Eos # (Auto) 0.4 (0.0-0.7) 10^3/uL Baso # (Auto) 0.1 (0.0-0.1) 10^3/uL Abs Immat Gran (auto) 0.02 (0.00-0.03) 10^3/uL Imm/Tot Granulo (auto) 0.3 (0.0-0.5) % Sodium 137 (136-145) mmol/L Potassium 3.6 (3.5-5.1) mmol/L Chloride 100 (98-107) mmol/L Carbon Dioxide 27.6 (21.0-32.0) mmol/L Anion Gap 13.0 BUN 16.0 (7.0-18.0) mg/dL Creatinine 0.67 L (0.70-1.30) mg/dL Est GFR ( Amer) >60 (>=60) Est GFR (Non-Af Amer) >60 (>=60) BUN/Creatinine Ratio 23.9 Glucose 177 H (74-106) mg/dL Lactate 1.3 (0.4-2.0) mmol/L Calcium 8.8 (8.5-10.1) mg/dL Magnesium 1.7 L (1.8-2.4) mg/dL Total Bilirubin 0.5 (0.2-1.0) mg/dL AST 13 L (15-37) U/L ALT 18 (16-63) U/L Alkaline Phosphatase 87 (46-116) U/L Total Protein 6.8 (6.4-8.2) g/dL Albumin 3.0 L (3.4-5.0) g/dL Globulin 3.8 g/dL Albumin/Globulin Ratio 0.8 SARS-CoV-2 (PCR) Negative (NEGATIVE) Monoscreen Negative (NEGATIVE) Streptococcus Screen Negative Discharge Plan Discharge Chief Complaint: Shortness of Breath/Dyspnea Clinical Impression: Swelling of tonsil Patient Disposition: Home, Self-Care Time of Disposition Decision: 19:55 Prescriptions / Home Meds: New prednisone 20 mg tablet 40 mg PO DAILY 7 Days Qty: 14 0RF No Action famotidine [Pepcid] 20 mg tablet 20 mg PO BID Qty: 10 0RF Steglatro 15 mg tablet 15 mg PO DAILY losartan 100 mg tablet 100 mg PO DAILY metformin 500 mg tablet extended release 24 hr 500 mg PO DAILY Instructions: Tonsillitis (ED) Stand Alone Forms: Portal Instructions Referrals: AINSLEY GILLETTE [Primary Care Provider] - 1 week
[2023-06-18 14:52] LABS: SARS-CoV-2 NAA NOT DETECTED (NOT DETECTE)
== END 2023-06-17 20:27 | disposition home or self-care (01) ==
PROVIDERS: Emergency Medicine; Emergency Provider Emergency Medicine; PCP Family Medicine
DX: J35.1 Hypertrophy of tonsils (principal); Z79.84 Long term (current) use of oral hypoglycemic drugs
CPT/HCPCS: 36415; 80053; 83605; 83735; 85025; 86308; 87070; 87635; 87811; 87880; 96374; 99284; J2930

== ENCOUNTER 2023-08-23 10:25 | Emergency (ER) | payer OTHER, SELFPAY ==
[2023-08-23] VITALS (9 sets, daily range): BP systolic 92–121; BP diastolic 50–88; PULSE 105–119; RESP 19–22; TEMP 38; O2SAT 93–96; BMI 50.7
--- OUTSIDE RECORDS SUMMARY | 2023-08-23 10:31 | XMS_ITS | CCD ---
Author Name Unknown Address [address] [place] [address] Organization [facility] Care Team Providers Care Ladle Puller Name Role Phone Chelsey Starr Admitting Unavailable Chelsey Starr Attending Unavailable ALTAF, DR JAZMIN Fish Admitting Unavailable ALTAF, DR JAZMIN Fish Consulting Unavailable ALTAF, DR JAZMIN Fish Attending Unavailable NAIN, DR JEAN Waters Primary Care Unavailable MATTHEW DOBBINS Consulting Unavailable Darlin Parham Unavailable MELANIE NUNEZ Admitting Unavailable MELANIE NUNEZ Attending Unavailable NAIN, DR JEAN Waters Primary Care Unavailable Shola Morgan Consulting Unavailable MELANIE NUNEZ Consulting Unavailable Jennifer Cisneros Unavailable Jean Gillette DO Primary Care Provider JEAN GILLETTE Primary Care Unavailable IFRAH MICHELLE Admitting Unavailable IFRAH MICHELLE Attending Unavailable Timothy Lan MD Unavailable SHELLY, CARA Keen Referring Unavailable CARA BRAVO Attending Unavailable TIMOTHY LAN Referring Unavailable JEAN GILLETTE Attending Unavailable JEAN GILLETTE Referring Unavailable JEAN GILLETTE Primary Care Unavailable MELANIE NUNEZ Attending Unavailable JEAN GILLETTE Referring Unavailable JEAN GILLETTE Primary Care Unavailable MADDI FITCH Attending Unavailable JEAN GILLETTE Referring Unavailable JEAN GILLETTE Primary Care Unavailable Jean Gillette DO Primary Care Provider JEAN GILLETTE Referring Unavailable JEAN GILLETTE Primary Care Unavailable TIMOTHY LAN Attending Unavailable MELANIE NUNEZ Referring Unavailable JEAN GILLETTE Primary Care Unavailable FURLONG, JEAN G Primary Care Unavailable AMBER, STACEY Attending Unavailable AMBER, STACEY Attending Unavailable AMBER, STACEY Referring Unavailable FURLONG, JEAN G Primary Care Unavailable AMBER, STACEY Attending Unavailable AMBER, STACEY Referring Unavailable FURLONG, JEAN G Primary Care Unavailable FURLONG, JEAN G Referring Unavailable FURLONG, JEAN G Primary Care Unavailable TIMOTHY LAN Attending Unavailable MELANIE NUNEZ Referring Unavailable FURLONG, JEAN G Primary Care Unavailable EDYTA, TIMOTHY N Referring Unavailable FURLONG, JEAN G Primary Care Unavailable FURLONG, JEAN G Referring Unavailable FURLONG, JEAN G Primary Care Unavailable EDYTA, TIMOTHY N Referring Unavailable FURLONG, JEAN G Primary Care Unavailable EDYTA, AGUIRRE N Referring Unavailable FURLONG, JEAN G Primary Care Unavailable FURLONG, JEAN G Referring Unavailable FURLONG, JEAN G Primary Care Unavailable TIMOTHY LAN N Attending Unavailable EDYTA, TIMOTHY N Referring Unavailable FURLONG, JEAN G Primary Care Unavailable FURLONG, JEAN G Referring Unavailable FURLONG, JEAN G Primary Care Unavailable Allergies Allergy Classification Reported Allergen(s) Allergy Type Date of Onset Reaction(s) Facility (20 sources) Lisinopril; Translations: [LISINOPRIL] Drug Allergy 01-01-2023 [facility] Work Phone: Medications Current Medications Medication Drug Class(es) Dates Sig (Normalized) Sig (Original) [id number] 200 actuat albuterol 0.09 mg/actuat metered dose inhaler (20 sources) beta2-Adrenergic Agonist Start: 11-30-2022 take 2 puff(s) by inhalation every six hours as needed for wheezing albuterol (PROVENTIL HFA;VENTOLIN HFA) 90 mcg/actuation inhaler Indications: Acute cough Inhale 2 puffs every 6 (six) hours as needed for wheezing or shortness of breath. 6.7 g 0 11/30/2022 Active Start: 11-30-2022 take 2 puff(s) by in halation every six hours as needed albuterol HFA (PROVENTIL HFA, VENTOLIN HFA) 90 mcg/actuation inhaler Inhale 2 Puffs as instructed every 6 hours as needed. 0 11/30/2022 Active Comment on above: Inhale 2 Puffs as in structed every 6 hours as needed. allopurinol 300 mg oral tablet (12 sources) Xanthine Oxidase Inhibitor Start: take 1 tablet by mouth in the morning allopurinoL (ZYLOPRIM) 300 mg tablet Take 1 tablet (300 mg total) by mouth in the morning. 30 tablet 0 08/01/2023 Active amoxicillin 875 mg oral tablet (1 source) Penicillin-class Antibacterial Start: take 1 tablet by mouth every twelve hours Amoxicillin 875 MG 1 capsule Orally Twice a day for 10 days May, Active benzonatate 100 mg oral capsule (3 sources) Non-narcotic Antitussive Start: take 1 capsule by mouth every eight hours benzonatate (TESSALON PERLES) 100 mg capsule Take 1 capsule (100 mg total) by mouth every 8 (eight) hours. 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 Start decadron 20 mg daily, 2 days before chemo for 2 days. 10 tablet 0 08/09/2023 Active ertugliflozin 15 mg oral tablet (20 sources) Start: take 1 tablet by mouth once daily STEGLATRO 15 mg tablet TAKE 1 TABLET BY MOUTH EVERY DAY 90 tablet 1 03/26/2023 Active Comment on above: Take 15 mg by mouth once daily. famotidine 20 mg oral tablet (20 sources) Histamine-2 Receptor Antagonist Start: End: take 1 tablet by mouth in the morning, then take 1 tablet by mouth at bedtime famotidine (PEPCID) 20 mg tablet Indications: Gastroesophageal reflux disease with esophagitis, unspecified whether hemorrhage Take 1 tablet (20 mg total) by mouth in the morning and 1 tablet (20 mg total) before bedtime. 60 tablet 5 08/16/2023 Active Comment on above: Take 20 mg by mouth. losartan potassium 100 mg oral tablet (20 sources) Angiotensin 2 Receptor Carley Start: 10-09-2 023 take 1 tablet by mouth once daily losartan (COZAAR) 100 mg tablet TAKE 1 TABLET BY MOUTH EVERY DAY 90 tablet 1 03/26/2023 Active Losartan Gamal dunham Active Comment on above: Take 1 tablet by guerda th once daily. 24 hr metFORMIN hydrochloride 500 mg extended release oral tablet (20 sources) Biguanide Start: 3 take 1 tablet by mouth once daily at breakfast metFORMIN XR (GLUCOPHAGE XR) 500 mg 24 hr tablet TAKE 1 TABLET(500 MG) BY MOUTH DAILY WITH BREAKFAST 90 tablet 0 03/26/2023 Active take 1 tablet by guerda th once daily at breakfast metFORMIN (GLUCOPHAGE) 500 mg tablet Sai e 500 mg by mouth daily with breakfast. 0 Active metFORMIN HCl Ac tive Comment on above: Take 500 mg by mouth daily with breakfast. 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 30 tablet 2 07/18/2023 Active Comment on above: Take 1 tablet by guerda th twice daily as needed for severe nausea or vomiting. Ozempic (1 source) Ozempic Active predniSONE 10 mg oral tablet (5 sources) Start: 4 End: 4 take 4 tablets by mouth once daily, then take 3 tablets by mouth once daily, then take 2 tablets by mouth once daily, then take 1 tablet by mouth once daily predniSONE (DELTASONE) 10 mg tablet Take 4 tablets (40 mg total) by mouth daily for 1 day, THEN 3 tablets (30 mg total) daily for 1 day, THEN 2 tablets (20 mg total) daily for 1 day, THEN 1 tablet (10 mg total) daily for 1 day. 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 60 tablet 2 07/18/2023 Active Comment on above: Take 1 tablet by guerda every 6 hours as needed for mild nausea or vomiting. rosuvastatin calcium 5 mg oral tablet (20 sources) HMG-CoA Reductase Inhibitor Start: 05-14-2023 take 1 tablet by mouth in the morning rosuvastatin (CRESTOR) 5 mg tablet Take 1 tablet (5 mg total) by mouth in the morning. 90 tablet 1 05/14/2023 Active Rosuvastatin Ortega cium Active 0.25 mg, 0.5 mg dose 1.5 ml semaglutide 1.34 mg/ml pen injector (15 sources) Start: 07-26-2023 semaglutide (O ZEMPIC) 0.25 mg or 0.5 mg(2 mg/1.5 mL) pen injector Indications: Type 2 diabetes mellitus without complication, without long-term current use of insulin ([facility]) Inject 0.25 mg under the skin every 7 days. Take 0.25 mg subcutaneously weekly for 4 doses then increase to 0.5 mg subcutaneously weekly 1.5 mL 2 07/26/2023 Active Steglatro (3 sources) Steglatro Active Completed/Discontinued Medications Medication Drug Class(es) Dates Sig (Normalized) Sig (Original) acetaminophen 500 mg oral tablet (6 sources) Start: 08-14-2023 End: 08-14-2023 acetaminophen (TYLENOL EXTRA STRENGTH) tablet 1,000 mg Start: 06-15-2023 take 2 tablets by mo [facility] every six hours as needed acetaminophen (TYLENOL) 325 mg tablet Take 2 tablets (650 mg total) by mouth every 6 (six) hours as needed. 0 06/15/2023 Active Comment on above: Take 650 mg by mouth every 6 hours as needed. bendamustine (BENDEKA) 250 mg in sodium chloride 0.9 % 50 mL chemo IVPB (2 sources) Start: 08-15-2023 End: 08-15-2023 bendamustine (BENDEKA) 250 mg in sodium chloride 0.9 % 50 mL chemo IVPB Start: 08-14-2023 End: 08-14-2023 bendamustine (BENDEKA) 250 m g in sodium chloride 0.9 % 50 mL chemo IVPB cyclobenzaprine hydrochloride 10 mg oral tablet (2 sources) Muscle Relaxant Start: 08-22-2022 take 1 tablet by mouth three times daily as needed for muscle spasms Cyclobenzaprine HCl 10 MG 1 tab(s) Orally 3 times a day prn muscle spasms Aug, Not-Taking dexAMETHasone (DECADRON) 12 mg, granisetron HCL (KYTRIL) 1 mg in sodium chloride 0.9 % 50 mL IVPB (1 source) Start: 08-15-2023 End: 08-15-2023 dexAMETHasone (DECADRON) 12 mg, granisetron HCL (KYTRIL) 1 mg in sodium chloride 0.9 % 50 mL IVPB dexAMETHasone (DECADRON) 20 mg, diphenhydrAMINE (BENADRYL) 25 mg in dextrose 5 % in water (D5W) 50 mL IVPB (1 source) Start: 08-14-2023 End: 08-14-2023 dexAMETHasone (DECADRON) 20 mg, diphenhydrAMINE (BENADRYL) 25 mg in dextrose 5 % in water (D5W) 50 mL IVPB diphenhydrAMINE (1 source) Histamine-1 Receptor Antagonist Start: 08-14-2023 End: 08-14-2023 diphenhydrAMINE (BENADRYL) injection 25 mg fexofenadine hydrochloride 180 mg oral tablet (20 sources) Histamine-1 Receptor Antagonist Start: 05-08-2023 End: 08-16-2023 take 1 tablet by mouth in the morning fexofenadine (JANE) 180 mg tablet Take 1 tablet (180 mg total) by mouth in the morning. 30 tablet 2 05/08/2023 08/16/2023 Discontinued fluticasone propionate 0.05 mg/actuat metered dose nasal spray (20 sources) Corticosteroid Start: 05-08-2023 End: 08-16-2023 take 1 spray(s) nasal route in the morning fluticasone propionate (FLONASE) 50 mcg/actuation nasal spray Administer 1 spray into each nostril in the morning. 15.8 mL 2 05/08/2023 08/16/2023 Discontinued Ketorolac Tromethamin (2 sources) Start: 08-22-2022 Ketorolac Tromethamin Aug, 30 mg Lisinopril (3 sources) Angiotensin Converting Enzyme Inhibitor Lisinopril Not-Taking Lisinopril Activ e methylPREDNISolone 125 mg injection (2 sources) Corticosteroid Start: 08-14-2023 End: 08-14-2023 methylPREDNISolone sod suc(PF) (Solu-MEDROL) injection 125 mg Start: 05-18-2023 methylPREDNISo lone 4 MG as directed Orally for 6 May, Active 5 ml palonosetron 0.05 mg/ml injection (1 source) Serotonin-3 Receptor Antagonist Start: 08-14-2023 End: 08-14-2023 palonosetron (ALOXI) injection 250 mcg riTUXimab-abbs (TRUXIMA) 1,000 mg in sodium chloride 0.9 % 500 mL chemo IVPB (1 source) Start: 08-14-2023 End: 08-14-2023 riTUXimab-abbs (TRUXIMA) 1,000 mg in sodium chloride 0.9 % 500 mL chemo IVPB semaglutide (OZEMPIC) 2 mg/dose (8 mg/3 mL) pen injector (9 sources) Start: 02-01-2023 End: 07-26-2023 semaglutide (OZEMPIC) 2 mg/dose (8 mg/3 mL) pen injector Inject 2 mg under the skin every 7 days. 12 mL 1 02/01/2023 07/26/2023 Discontinued (Dose adjustment) Start: 02-01-2023 semaglutide (O ZEMPIC) 2 mg/dose (8 mg/3 mL) pen injector Inject 2 mg under the skin every 7 days. 12 mL 1 02/01/2023 Active 1000 ml sodium chloride 9 mg/ml injection (2 sources) Start: 08-14-2023 End: 08-15-2023 sodium chloride 0.9 % infusion triamcinolone acetonide 40 mg/ml injectable suspension (2 sources) Corticosteroid Start: 08-22-2022 Kenalog-40 Aug, 40 mg Problems Active Problems Problem Classification Problem Date Documented Da te Episodic/Chronic Acute and chronic tonsillitis (1 source) Acute tonsillitis, unspecified Episodic Diabetes mellitus without complication (20 sources) Type 2 diabetes mellitus without complication; Translations: [Type 2 diabetes mellitus without complications] Onset: 02-01-2023 02-01-2023 Chronic Esophageal disorders (1 source) Gastro-esophageal reflux disease with esophagitis; Translations: [Gastroesophageal reflux disease with esophagitis, unspecified whether hemorrhage] 08-16-2023 Chronic Esophageal disorders (1 source) Esophageal disorders; Translations: [Gastro-esophageal reflux disease with esophagitis, without bleeding] Onset: 08-16-2023 Essential hypertension (20 sources) Essential hypertension; Translations: [Essential (primary) hypertension] Onset: 06-01-2022 06-01-2022 Chronic Non-Hodgkin`s lymphoma (20 sources) Mantle cell lymphoma; Translations: [Mantle cell lymphoma, lymph nodes of head, face, and neck] Onset: 07-12-2023 07-12-2023 Chronic Other lower respiratory disease (1 source) Shortness of breath; Translations: [Shortness of breath] Onset: 08-19-2023 Episodic Other lower respiratory disease (2 sources) Cough Onset: 08-19-2023 Episodic Other nervous system disorders (1 source) Circadian rhythm sleep disorder of shift work type; Translations: [Circadian rhythm sleep disorder, shift work type] 07-17-2023 Chronic Other nervous system disorders (4 sources) Anesthesia of skin; Translations: [ANESTHESIA OF SKIN] Onset: 06-18-2021 Episodic Other nutritional; endocrine; and metabolic disorders (20 sources) Severe obesity; Translations: [Morbid (severe) obesity due to excess calories] Onset: 08-31-2022 08-31-2022 Chronic Other nutritional; endocrine; and metabolic disorders (1 source) Morbid (severe) obesity due to excess calories; Translations: [Morbid (severe) obesity due to excess calories] Onset: 08-31-2022 Chronic Other nutritional; endocrine; and metabolic disorders (1 source) Body mass index (BMI) 45.0-49.9, adult; Translations: [Body mass index (BMI) 45.0-49.9, adult] Onset: 08-31-2022 Chronic Other upper respiratory disease (3 sources) Seasonal allergy; Translations: [Other seasonal allergic rhinitis] Chronic Other upper respiratory disease (1 source) Allergic rhinitis, unspecified; Translations: [Allergic rhinitis, unspecified seasonality, unspecified trigger J30.9] Onset: 03-20-2021 Resolved: 03-20-2021 Chronic Other upper respiratory infections (1 source) Acute pharyngitis, unspecified Episodic Otitis media and related conditions (1 source) Perforation of left tympanic membrane; Translations: [Unspecified perforation of tympanic membrane, left ear] 07-12-2023 Episodic Pleurisy; pneumothorax; pulmonary collapse (2 sources) Pleural effusion; Translations: [Pleural effusion, not elsewhere classified] Onset: 08-13-2023 08-09-2023 Episodic Residual codes; unclassified (20 sources) Obstructive sleep apnea syndrome; Translations: [Obstructive sleep apnea (adult) (pediatric)] Onset: 05-08-2023 05-08-2023 Chronic Residual codes; unclassified (1 source) Obstructive sleep apnea (adult) (pediatric); Translations: [Obstructive sleep apnea (adult) (pediatric)] Onset: 06-25-2023 Chronic Residual codes; unclassified (1 source) Sleep apnea Onset: 07-17-2023 Chronic Spondylosis; intervertebral disc disorders; other back problems (4 sources) Radiculopathy, cervical region; Translations: [RADICULOPATHY CERVICAL REGION] Onset: 09-01-2022 Episodic Sprains and strains (1 source) Strain of other muscles, fascia and tendons at shoulder and upper arm level, right arm, initial encounter Episodic Unclassified (1 source) Ear Drainage Onset: 07-12-2023 Unclassified (1 source) Acute cough; Translations: [Acute cough] Onset: 08-19-2023 Unclassified (1 source) Outpatient Infusion Onset: 08-15-2023 Unclassified (1 source) Lymphoma Onset: 07-13-2023 Viral infection (1 source) Other specified viral diseases; Translations: [Other specified viral diseases] Onset: 08-19-2023 Episodic Viral infection (1 source) COVID-19; Translations: [COVID-19] Onset: 06-20-2021 Past or Other Problems Problem Classification Problem Date Documented Da te Episodic/Chronic Immunizations and screening for infectious disease (1 source) Contact with and (suspected) exposure to other viral communicable diseases; Translations: [Contact with and (suspected) exposure to other viral communicable diseases Z20.828] Onset: 03-20-2021 Resolved: 10-03-2021 Episodic Mood disorders (20 sources) Mood disorders Onset: 07-12-2023 07-12-2023 Results Test Name Value Interpretation Reference Range Facility BLOOD CULTUREon 08-19-2023 Bacteria identified Aer cx Nom (Bld) CULTURE RESULTS NO GROWTH 2 DAYS Normal [facility] Bacteria identified Aer cx Nom (Bld) CULTURE RESULTS NO GROWTH 2 DAYS Normal [facility] CBC AND AUTO DIFFon 08-19-19 ABSOLUTE BASOPHIL 0.0 X10E9/L Normal 0.0-0.2 [facility] Comment on above: Performed By: #### C BCA, CMP, 2532-0, 3084-1, 26895-9, 5193-8, 5196-1 #### [facility] ([id number]) [address] [facility] [facility] [address] [place] [address] ABSOLUTE NEUTROPHIL 5.0 X10E9/L Normal 1.5-6.6 [facility] Comment on above: Performed By: #### C BCA, CMP, 2532-0, 3084-1, 17286-0, 5193-8, 5196-1 #### [facility] ([id number]) [address] [facility] [facility] [facility] [address] [place] [address] Basophils/100 WBC (Bld) 0.2 % Normal [facility] Comment on above: Performed By: #### C BCA, CMP, 2532-0, 3084-1, 96683-3, 5193-8, 5196-1 #### [facility] ([id number]) [address] [place] [address] Eosinophils (Bld) [#/Vol] 0.4 10*3/uL Normal 0.0-0.4 [facility] Comment on above: Performed By: #### C BCA, CMP, 2532-0, 3084-1, 83710-8, 5193-8, 5196-1 #### [facility] ([id number]) [address] [facility] [facility] [facility] [address] [place] [address] Eosinophils/100 WBC (Bld) 6.4 % Normal [facility] Comment on above: Performed By: #### C BCA, CMP, 2532-0, 3084-1, 58744-2, 5193-8, 5196-1 #### [facility] ([id number]) [address], [address] [place] [address] Erythrocyte distribution width (RBC) [Ratio] 16.4 % High 11.5-15.0 [facility] Comment on above: Performed By: #### C BCA, CMP, 2532-0, 3084-1, 44254-8, 5193-8, 5196-1 #### [facility] ([id number]) [address], [address] [place] [address] Hematocrit (Bld) [Volume fraction] 40.8 % Normal 39-49 [facility] Comment on above: Performed By: #### C BCA, CMP, 2532-0, 3084-1, 26232-0, 5193-8, 5196-1 #### [facility] ([id number]) [address], [address] [place] [address] Hemoglobin (Bld) [Mass/Vol] 13.7 g/dL Normal 13.0-17.0 [facility] Comment on above: Performed By: #### C BCA, CMP, 2532-0, 3084-1, 11943-1, 5193-8, 5196-1 #### [facility] ([id number]) [address] [place] [address] Lymphocytes (Bld) [#/Vol] 0.1 10*3/uL Low 1.0-3.5 [facility] Comment on above: Performed By: #### C BCA, CMP, 2532-0, 3084-1, 89589-2, 5193-8, 5196-1 #### [facility] ([id number]) [address], [address] [place] [address] Lymphocytes/100 WBC (Bld) 2.5 % Normal [facility] Comment on above: Performed By: #### C BCA, CMP, 2532-0, 3084-1, 37833-7, 5193-8, 5196-1 #### [facility] ([id number]) [address], [address] [place] [address] MCH (RBC) [Entitic mass] 25.0 pg Low 27-34 [facility] Comment on above: Performed By: #### C BCA, CMP, 2532-0, 3084-1, 94806-3, 5193-8, 5196-1 #### [facility] ([id number]) [address], [address] [place] [address] MCHC (RBC) [Mass/Vol] 33.7 g/dL Normal 32-36 [facility] Comment on above: Performed By: #### C BCA, CMP, 2532-0, 3084-1, 94923-9, 5193-8, 5196-1 #### [facility] ([id number]) [address], [address] [place] [address] MCV (RBC) [Entitic vol] 74 fL Low 80-100 [facility] Comment on above: Performed By: #### C BCA, CMP, 2532-0, 3084-1, 38473-9, 5193-8, 5196-1 #### [facility] ([id number]) [address], [address] [place] [address] Monocytes (Bld) [#/Vol] 0.4 10*3/uL Normal 0-0.9 [facility] Comment on above: Performed By: #### C BCA, CMP, 2532-0, 3084-1, 35028-5, 5193-8, 5196-1 #### [facility] ([id number]) [address], [address] [place] [address] Monocytes/100 WBC (Bld) 6.2 % Normal [facility] Comment on above: Performed By: #### C BCA, CMP, 2532-0, 3084-1, 10193-8, 5193-8, 5196-1 #### [facility] ([id number]) [address], [address] [place] [address] Neutrophils/100 WBC (Bld) 84.7 % Normal [facility] Comment on above: Performed By: #### C BCA, CMP, 2532-0, 3084-1, 44862-7, 5193-8, 5196-1 #### [facility] ([id number]) [address], [address] [place] [address] Platelet mean volume (Bld) [Entitic vol] 7.5 fL Normal 7-12 [facility] Comment on above: Performed By: #### C BCA, CMP, 2532-0, 3084-1, 71595-9, 5193-8, 5196-1 #### [facility] ([id number]) [address] [place] [address] Platelets (Bld) [#/Vol] 281 10*3/uL Normal 150-450 [facility] Comment on above: Performed By: #### C BCA, CMP, 2532-0, 3084-1, 77120-9, 5193-8, 5196-1 #### [facility] ([id number]) [address], [address] [place] [address] RBC COUNT 5.50 X10E12/L Normal 4.10-5.70 [facility] Comment on above: Performed By: #### C BCA, CMP, 2532-0, 3084-1, 07101-1, 5193-8, 5196-1 #### [facility] ([id number]) [address], [address] [place] [address] WBC (Bld) [#/Vol] 5.9 10*3/uL Normal 4.0-11.0 [facility] Comment on above: Performed By: #### C BCA, CMP, 2532-0, 3084-1, 70246-4, 5193-8, 5196-1 #### [facility] ([id number]) [address], [address] [place] [address] COMPREHENSIVE METABOLIC PANE Maurisio 08-19-2023 Albumin [Mass/Vol] 4.1 g/dL Normal 3.2-5.3 [facility] Comment on above: Performed By: #### C BCA, CMP, 2532-0, 3084-1, 76914-2, 5193-8, 5196-1 #### [facility] ([id number]) [address], [address] [place] [address] ALP [Catalytic activity/Vol] 77 U/L Normal 39-130 [facility] Comment on above: Performed By: #### C BCA, CMP, 2532-0, 3084-1, 59096-5, 5193-8, 5196-1 #### [facility] ([id number]) [address], [address] [place] [address] ALT [Catalytic activity/Vol] 16 U/L Normal 0-40 [facility] Comment on above: Performed By: #### C BCA, CMP, 2532-0, 3084-1, 50448-0, 5193-8, 5196-1 #### [facility] ([id number]) [address] [place] [address] Anion gap [Moles/Vol] 9 mmol/L Normal 5-15 [facility] Comment on above: Performed By: #### C BCA, CMP, 2532-0, 3084-1, 46856-9, 5193-8, 5196-1 #### [facility] ([id number]) [address] [place] [address] AST [Catalytic activity/Vol] 17 U/L Normal 0-41 [facility] Comment on above: Performed By: #### C BCA, CMP, 2532-0, 3084-1, 89602-7, 5193-8, 5196-1 #### [facility] ([id number]) [address] [place] [address] Bilirubin [Mass/Vol] 0.9 mg/dL Normal 0.3-1.2 [facility] Comment on above: Performed By: #### C BCA, CMP, 2532-0, 3084-1, 06678-0, 5193-8, 5196-1 #### [facility] ([id number]) [address] [place] [address] Calcium [Mass/Vol] 8.9 mg/dL Normal 8.5-10.5 [facility] Comment on above: Performed By: #### C BCA, CMP, 2532-0, 3084-1, 33145-0, 5193-8, 5196-1 #### [facility] ([id number]) [address], [address] [place] [address] Chloride [Moles/Vol] 95 mmol/L Low 98-109 [facility] Comment on above: Performed By: #### C BCA, CMP, 2532-0, 3084-1, 25080-6, 5193-8, 5196-1 #### [facility] ([id number]) [address], [address] [place] [address] CO2 [Moles/Vol] 28 mmol/L Normal 22-32 [facility] Comment on above: Performed By: #### C BCA, CMP, 2532-0, 3084-1, 39044-1, 5193-8, 5196-1 #### [facility] ([id number]) [address], [address] [place] [address] Creatinine [Mass/Vol] 0.60 mg/dL Low 0.70-1.20 [facility] Comment on above: Result Comment: METH OD TRACEABLE TO IDMS STANDARD Performed By: #### C BCA, CMP, 2532-0, 3084-1, 31853-2, 5193-8, 5196-1 #### [facility] ([id number]) [address], [address] [place] [address] eGFR (CKD-EPI) NON-RACE DEPENDENT >90 Normal >59 [facility] Comment on above: Result Comment: Reported eGFR is based on the CKD-EPI 2020 equation that does not use a race coefficient. Performed By: #### C BCA, CMP, 2532-0, 3084-1, 14424-0, 5193-8, 5196-1 #### [facility] ([id number]) [address], [address] [place] [address] Glucose [Mass/Vol] 209 mg/dL High 65-99 [facility] Comment on above: Performed By: #### C BCA, CMP, 2532-0, 3084-1, 76487-2, 5193-8, 5196-1 #### [facility] ([id number]) [address], [address] [place] [address] Potassium [Moles/Vol] 4.1 mmol/L Normal 3.5-5.0 [facility] Comment on above: Performed By: #### C BCA, CMP, 2532-0, 3084-1, 95029-7, 5193-8, 5196-1 #### [facility] ([id number]) [address], [address] [place] [address] Protein [Mass/Vol] 7.4 g/dL Normal 6.0-8.0 [facility] Comment on above: Performed By: #### C BCA, CMP, 2532-0, 3084-1, 39466-1, 5193-8, 5196-1 #### [facility] ([id number]) [address], [address] [place] [address] Sodium [Moles/Vol] 132 mmol/L Low 134-146 [facility] Comment on above: Performed By: #### C BCA, CMP, 2532-0, 3084-1, 88971-4, 5193-8, 5196-1 #### [facility] ([id number]) [address], [address] [place] [address] Urea nitrogen [Mass/Vol] 15 mg/dL Normal 5-23 [facility] Comment on above: Performed By: #### C BCA, CMP, 2532-0, 3084-1, 89966-7, 5193-8, 5196-1 #### [facility] ([id number]) [address], [address] [place] [address] CT CTA CHESTon 08-19-[address] CTA CHEST HISTORY and Tech Notes: Pulmonary embolism (PE) Short of breath, low to intermediate prob, positive D-dimer Patient states that he had chemo on Sunday and now has dry cough started and progressive SOB HX: lymphoma Omni 350 100ml PROCEDURE: CT angiogram chest with IV contrast 3 dimensional reconstructions were obtained from an independent workstation under direction of supervising radiologist, in addition to routine 2 dimensional imaging and standard reconstructions. Automated exposure control was utilized COMPARISON: August 03 FINDINGS: CHEST: Detail is suboptimal due to timing of the contrast bolus and other technical factors No large pulmonary emboli seen Normal heart size without pericardial effusion. There is some pulsation artifact in the aorta without visible dissection Large dominant mass in the upper abdomen mesentery and gastrohepatic region with severe retrocrural, subcarinal and mediastinal and axillary and supraclavicular lymphadenopathy Splenomegaly No visible ascites Left pleural effusion has cleared Latt-hp-ncoibpkp right pleural effusion, decreased There is some residual volume loss and consolidation in the right lower lung There is not significant airspace disease, groundglass opacity or interstitial disease otherwise No visible compression fracture No aggressive disc disease or lytic destructive process IMPRESSION: Suboptimal detail but no large pulmonary emboli or dissection visible Interval decrease in the severity of pleural effusions with atgs-hx-nhareqof residual on the right and some residual volume loss and consolidation Splenomegaly and severe lymphadenopathy with dominant mesenteric and gastrohepatic lymph node masses again seen consistent with the underlying condition All CT scans at this facility use dose modulation, iterative reconstruction, and/or weight based dosing when appropriate to reduce radiation dose to as low as reasonably achievable. --------- Finalized by Cesar Arrington MD on 08/19/2023 1:06 PM Normal [facility] Fibrin D-dimer DDU (PPP) [Ma ss/Vol]on 08-19-2023 D DIMER 550 ng/mL DDU High <255 [facility] Comment on above: Result Comment: Results >=255ng/mL DDU: Results may be indicative of the presence of VTE. The use of the Wells score and further diagnostic tests should be considered. Elevated D-Dimer levels can also be associated with DIC, neoplasm, , trauma and liver disease. Elevated levels of rheumatoid factor may lead to an overestimation of the D-Dimer level. Performed By: #### C SAI SHIELDS, 2532-0, 3084-1, 99391-4, 5193-8, 5196-1 #### [facility] ([id number]) [address], [address] [place] [address] Lactate (P annamaria) [Moles/Vol]o n 08-19-2023 LACTATE W/REFLEX 1.2 mmol/L Normal 0.4-2.[address] [facility] Comment on above: Result Comment: Result did not trigger repeat Lactate, re-order if needed. Performed By: #### C ALYSON CMP, 2532-0, 3084-1, 62481-7, 5193-8, 519-1 #### [facility] ([id number]) [address], [address] [place] [address] MAGNESIUMon 08-19-2023 Magnesium [Mass/Vol] 2.0 mg/dL Normal 1.8-2.6 [facility] Comment on above: Performed By: #### C BCA, CMP, 2532-0, 3084-1, 17869-4, 5193-8, 5196-1 #### [facility] ([id number]) [address] [place] [address], [address] [place] [address] SARS/FLU A+B/RSV by NAAT/Mol ecularon 08-19-2023 SARS/FLU A+B/RSV by NAAT/Molecular FLU A PCR Negative (qualifier value) FLU B PCR Negative (qualifier value) RSV by PCR Positive (qualifier value) SARS CoV 2 Not detected (qualifier value) NOTE The Xpert Xpress SARS-CoV-2/Flu/RSV Plus test is a rapid, multiplexed real-time RT-PCR test intended for the simultaneous qualitative detection and differentiation of SARS-CoV-2, influenza A, influenza B and respiratory syncytial virus (RSV) viral RNA from individuals suspected of respiratory viral infection consistent with COVID-19 by their healthcare provider. This test has not been validated in asymptomatic patients. The Xpert Xpress SARS-CoV-2 test is intended for use by qualified and trained operators who are performing tests using either [employer] or [employer] systems and is limited to laboratories that meet the CLIA requirements to perform high and moderate complexity tests. The Xpert Xpress SARS-CoV-2/Flu/RSV Plus is only for use under the Food and Drug Administration's Emergency Use Authorization. Results are for the simultaneous detection and differentiation of SARS-CoV-2, influenza A, influenza B and RSV nucleic acids in clinical specimens. SARS-CoV-2, influenza A, influenza B and RSV RNA identified by this test are generally detectable in upper respiratory samples during the acute phase of infection. Positive results are indicative of the presence of the identified virus, but do not rule out bacterial infection or co-infection with other pathogens not detected by this test. Clinical correlation with patient history and other diagnostic information is necessary to determine patient infection status. The agent detected may not be the definite cause of disease. Negative results do not preclude SARS-CoV-2, influenza A, influenza B and RSV infection and should not be used as the sole basis for treatment or other patient management decisions. Negative results must be combined with clinical observations, patient history and epidemiological information. An Invalid result may occur with specimen-associated inhibition unable to be resolved with specimen repeat. Fact Sheet for Healthcare Providers: https://www.fda.gov/med ia/195628/download Fact Sheet for Patients: https://www.fda.gov/med ia/694762/download Normal [facility] Comment on above: Performed By: #### C BCA, CMP, 2532-0, 3084-1, 08436-9, 5193-8, 5196-1 #### [facility] ([id number]) [address] [facility] [address] [place] [address] TROPONIN Ion 08-19-2023 Troponin I.cardiac [Mass/Vol] 0.01 ng/mL Normal 0.00-0.04 [facility] Comment on above: Performed By: #### C BCA, CMP, 2532-0, 3084-1, 99517-5, 5193-8, 5196-1 #### [facility] ([id number]) [address] [facility] [place] [address] URIC ACIDon 08-19-2023 Urate [Mass/Vol] 4.7 mg/dL Normal 2.6-7.[address] [facility] Comment on above: Performed By: #### C BCA, CMP, 2532-0, 3084-1, 03513-4, 5193-8, 5196-1 #### [facility] ([id number]) [address] [facility] [facility] [place] [address] XR CHEST 2 VWSon 08-19-2023 XR CHEST 2 VWS XR CHEST 2 VWS Clinical history:Cough. PA and lateral chest:08/19/2023 Comparison:None Findings: 2 views of the chest were obtained. 3 images are submitted. There is mild elevation of right hemidiaphragm. No focal infiltrate is evident. There is no pneumothorax or pleural effusion. Mediastinal contours are within normal limits. IMPRESSION: No acute abnormality. Finalized by Juan Carlos De La Rosa MD on 08/19/2023 11:53 AM Normal [facility] POCT Hemoglobin R5hLlvfoze B y: Kaylan Morales on 08-16-2023 HbA1c (Bld) [Mass fraction] 6.6 g/dL 4 - 7 g/dL [facility] CBC AND AUTO DIFFon 08-13-19 24 ABSOLUTE BASOPHIL 0.0 X10E9/L Normal 0.0-0.2 [facility] Comment on above: Performed By: #### Karina SHIELDS CMP, 3084-1 #### [facility] ([id number]) [address] [place] [address] ABSOLUTE NEUTROPHIL 9.0 X10E9/L High 1.5-6.6 [facility] Comment on above: Performed By: #### Karina SHIELDS CMP, 4-1 #### [facility] ([id number]) [address] [place] [address] Basophils/100 WBC (Bld) 0.2 % Normal [facility] Comment on above: Performed By: #### Karina SHIELDS CMP, 3083-06 #### [facility] ([id number]) [address] [place] [address] Eosinophils (Bld) [#/Vol] 0.0 10*3/uL Normal 0.0-0.4 [facility] Comment on above: Performed By: #### Karina SHIELDS CMP, 3083-06 #### [facility] ([id number]) [address] [place] [address] Eosinophils/100 WBC (Bld) 0.0 % Normal [facility] Comment on above: Performed By: #### Karina SHIELDS CMP, 3083- #### [facility] ([id number]) [address] [place] [address] Erythrocyte distribution width (RBC) [Ratio] 16.1 % High 11.5-15.0 [facility] Comment on above: Performed By: #### Karina SHIELDS CMP, 3083- #### [facility] ([id number]) [address] [place] [address] Hematocrit (Bld) [Volume fraction] 38.9 % Low 39-49 [facility] Comment on above: Performed By: #### Karina SHIELDS CMP, 3083- #### [facility] ([id number]) [address] [place] [address] Hemoglobin (Bld) [Mass/Vol] 12.9 g/dL Low 13.0-17.0 [facility] Comment on above: Performed By: #### Karina SHIELDS CMP, 3083-06 #### [facility] ([id number]) [address] [place] [address] Lymphocytes (Bld) [#/Vol] 2.9 10*3/uL Normal 1.0-3.5 [facility] Comment on above: Performed By: #### Karina SHIELDS CMP, 3083-06 #### [facility] ([id number]) [address] [place] [address] Lymphocytes/100 WBC (Bld) 23.0 % Normal [facility] Comment on above: Performed By: #### Karina SHIELDS CMP, 3083-06 #### [facility] ([id number]) [address] [place] [address] MCH (RBC) [Entitic mass] 24.6 pg Low 27-34 [facility] Comment on above: Performed By: #### Karina SHIELDS CMP, 3083-06 #### [facility] ([id number]) [address] [place] [address] MCHC (RBC) [Mass/Vol] 33.1 g/dL Normal 32-36 [facility] Comment on above: Performed By: #### Karina SHIELDS CMP, 3083-06 #### [facility] ([id number]) [address] [place] [address] MCV (RBC) [Entitic vol] 74 fL Low 80-100 [facility] Comment on above: Performed By: #### Karina SHIELDS CMP, 3083-1 #### [facility] ([id number]) [address] [place] [address] Monocytes (Bld) [#/Vol] 0.8 10*3/uL Normal 0-0.9 [facility] Comment on above: Performed By: #### Karina SHIELDS CMP, 3083-06 #### [facility] ([id number]) [address] [place] [address]45 Monocytes/100 WBC (Bld) 5.9 % Normal [facility] Comment on above: Performed By: #### Karina SHIELDS CMP, 3083-06 #### [facility] ([id number]) [address] [place] [address] Neutrophils/100 WBC (Bld) 70.9 % Normal [facility] Comment on above: Performed By: #### Karina SHIELDS CMP, 3083-06 #### [facility] ([id number]) [address] [place] [address] Platelet mean volume (Bld) [Entitic vol] 8.3 fL Normal 7-12 [facility] Comment on above: Performed By: #### Karina SHIELDS CMP, 3083-06 #### [facility] ([id number]) [address] [place] [address] Platelets (Bld) [#/Vol] 278 10*3/uL Normal 150-450 [facility] Comment on above: Performed By: #### Karina SHIELDS CMP, 3083-06 #### [facility] ([id number]) [address] [place] [address] RBC COUNT 5.24 X10E12/L Normal 4.10-5.70 [facility] Comment on above: Performed By: #### C BCA, CMP, 3084-1 #### [facility] ([id number]) [address] [place] [address] WBC (Bld) [#/Vol] 12.7 10*3/uL High 4.0-11.0 [facility] Comment on above: Performed By: #### C BCA, CMP, 3084-1 #### [facility] ([id number]) [address] [place] [address] COMPREHENSIVE METABOLIC PANE Maurisio 08-13-2023 Albumin [Mass/Vol] 4.1 g/dL Normal 3.2-5.3 [facility] Comment on above: Performed By: #### C BCA, CMP, 2532-0, 3084-1, 30651-9, 5193-8, 5196-1 #### [facility] ([id number]) [address], [address] [place] [address] ALP [Catalytic activity/Vol] 86 U/L Normal 39-130 [facility] Comment on above: Performed By: #### C BCA, CMP, 2532-0, 3084-1, 08512-2, 5193-8, 5196-1 #### [facility] ([id number]) [address], [address] [place] [address] ALT [Catalytic activity/Vol] 14 U/L Normal 0-40 [facility] Comment on above: Performed By: #### C BCA, CMP, 2532-0, 3084-1, 16019-0, 5193-8, 5196-1 #### [facility] ([id number]) [address], [address] [place] [address] Anion gap [Moles/Vol] 7 mmol/L Normal 5-15 [facility] Comment on above: Performed By: #### C BCA, CMP, 2532-0, 3084-1, 76932-5, 5193-8, 5196-1 #### [facility] ([id number]) [address], [address] [place] [address] AST [Catalytic activity/Vol] 22 U/L Normal 0-41 [facility] Comment on above: Performed By: #### C BCA, CMP, 2532-0, 3084-1, 87868-5, 5193-8, 5196-1 #### [facility] ([id number]) [address], [address] [place] [address] Bilirubin [Mass/Vol] 0.5 mg/dL Normal 0.3-1.2 [facility] Comment on above: Performed By: #### C BCA, CMP, 2532-0, 3084-1, 62943-3, 5193-8, 5196-1 #### [facility] ([id number]) [address], [address] [place] [address] Calcium [Mass/Vol] 9.1 mg/dL Normal 8.5-10.5 [facility] Comment on above: Performed By: #### C BCA, CMP, 2532-0, 3084-1, 77812-3, 5193-8, 5196-1 #### [facility] ([id number]) [address], [address] [place] [address] Chloride [Moles/Vol] 104 mmol/L Normal 98-109 [facility] Comment on above: Performed By: #### C BCA, CMP, 2532-0, 3084-1, 45213-8, 5193-8, 5196-1 #### [facility] ([id number]) [address], [address] [place] [address] CO2 [Moles/Vol] 22 mmol/L Normal 22-32 [facility] Comment on above: Performed By: #### C BCA, CMP, 2532-0, 3084-1, 65594-3, 5193-8, 5196-1 #### [facility] ([id number]) [address], [address] [place] [address] Creatinine [Mass/Vol] 0.66 mg/dL Low 0.70-1.20 [facility] Comment on above: Result Comment: METH OD TRACEABLE TO IDMS STANDARD Performed By: #### C BCA, CMP, 2532-0, 3084-1, 61773-4, 5193-8, 5196-1 #### [facility] ([id number]) [address], [address] [place] [address] eGFR (CKD-EPI) NON-RACE DEPENDENT >90 Normal >59 [facility] Comment on above: Result Comment: Reported eGFR is based on the CKD-EPI 2020 equation that does not use a race coefficient. Performed By: #### C BCA, CMP, 2532-0, 3084-1, 27637-9, 5193-8, 5196-1 #### [facility] ([id number]) [address], [address] [place] [address] Glucose [Mass/Vol] 153 mg/dL High 65-99 [facility] Comment on above: Performed By: #### C BCA, CMP, 2532-0, 3084-1, 32585-3, 5193-8, 5196-1 #### [facility] ([id number]) [address], [address] [place] [address] Potassium [Moles/Vol] 3.9 mmol/L Normal 3.5-5.0 [facility] Comment on above: Performed By: #### C BCA, CMP, 2532-0, 3084-1, 61557-1, 5193-8, 5196-1 #### [facility] ([id number]) [address], [address] [place] [address] Protein [Mass/Vol] 7.7 g/dL Normal 6.0-8.0 [facility] Comment on above: Performed By: #### C BCA, CMP, 2532-0, 3084-1, 06288-2, 5193-8, 5196-1 #### [facility] ([id number]) [address], [address] [place] [address] Sodium [Moles/Vol] 133 mmol/L Low 134-146 [facility] Comment on above: Performed By: #### C BCA, CMP, 2532-0, 3084-1, 72394-5, 5193-8, 5196-1 #### [facility] ([id number]) [address] [facility] [place] [address] Urea nitrogen [Mass/Vol] 15 mg/dL Normal 5-23 [facility] Comment on above: Performed By: #### C BCA, CMP, 2532-0, 3084-1, 05496-9, 5193-8, 519-1 #### [facility] ([id number]) [address], [address] [place] [address] PROTIME AND INRon 08-13-2023 INR Coag (PPP) [Relative time] 1.2 {INR} High 0.8-1.1 [facility] Comment on above: Performed By: #### P INR #### [facility] ([id number]) [address] [place] [address] PT Coag (PPP) [Time] 14.1 s High 9.8-13.2 [facility] Comment on above: Result Comment: NEW REFERENCE RANGE Performed By: #### P INR #### [facility] ([id number]) [address] [place] [address] URIC ACIDon 08-13-2023 Urate [Mass/Vol] 4.8 mg/dL Normal 2.6-7.[address] [facility] Comment on above: Performed By: #### C BCA, CMP, 2532-0, 3084-1, 74022-4, 5193-8, 5196-1 #### [facility] ([id number]) [address] [facility] [place] [address] US CHEST RTon 08-13-2023 US CHEST RT US CHEST RT Right chest ultrasound HISTORY: Right pleural effusion COMPARISON: PET CT 08/03/2023 IMPRESSION: * Patient presented for planned right thoracentesis. On initial scanning a small pleural effusion is seen, however this appears smaller than on recent PET/CT. A detailed discussion was had with the patient and Dr. Lan regarding the risks and benefits of performing thoracentesis at this time. Following this discussion, thoracentesis was deferred. Finalized by Baljeet Leon MD on 08/13/2023 10:09 AM [facility] PET CT SKULL TO THIGHon 07-[address] SKULL TO THIGH PET CT SKULL TO THIGH STUDY: PET-CT CLINICAL HISTORY: Mantle cell lymphoma COMPARISON: None. TECHNIQUE: PET/CT was performed following intravenous administration of 19.5 mCi F-18 FDG with images obtained from the skull base through the mid thighs. Fasting glucose was 88 mg/dL at the time of administration. CT was performed utilizing free breathing technique and nondiagnostic collimation for the purposes attenuation correction and localization of radiotracer activity. FINDINGS: There are innumerable FDG avid enlarged lymph nodes throughout the neck, within bilateral axillary regions, in the internal mammary regions of the mediastinum, elsewhere throughout the mediastinum including in the right paratracheal, hilar, and subcarinal regions, in the posterior mediastinum adjacent to the distal esophagus, in the cardiophrenic fat, adjacent to the IVC near the IVC-RA junction, in the retrocrural regions, throughout the retroperitoneum, within bilateral iliac regions most prominent in the distal left external iliac region, within bilateral inguinal regions, and extensively throughout the upper abdomen and mesentery where disease is most prominent with large conglomerated soft tissue masses (largest measuring 14.3 x 8.9 cm just anterior to the aorta and 9.8 x 5.2 cm in the upper omentum). The spleen is enlarged measuring 19.7 cm with heterogeneous increased FDG activity throughout the spleen. There are several soft tissue lesions scattered throughout the subcutaneous tissues of the abdominal wall with a lowest the right lateral abdominal wall measuring 3.6 x 3.0 cm. No FDG avid osseous lesions. Moderate to large right pleural effusion. Small left pleural effusion. Small amount of ascites. No other significant incidental findings. IMPRESSION: * Extensive FDG avid malignant lymphoma throughout the neck, chest, abdomen, and pelvis as described above with worst disease located in the abdomen. Deauville 5. * Moderate to large right pleural effusion, small left pleural effusion, and small amount of ascites. * Splenomegaly with malignant involvement of the spleen. Finalized by Baljeet Leon MD on 08/08/2023 10:43 AM Normal [facility] B2 MICROGLOBULIN Bon 024 Pins-4-Yyqeiovktxf in [Mass/Vol] 3.9 ug/mL High 0.8 - 2.4 mg/L [facility] B2 Microglob SerPl-mCncon Eyuh-2-Wxwttzsklxm in [Mass/Vol] 3.9 ug/mL High 0.8-2.4 [facility] Comment on above: Order Comment: Speci lizbeth Type: BLOOD SPECIMEN Ordering Facility: [facility] Address: [address] [place] [address] Result Comment: Beta -2 Microglobulin test is performed using the [employer] immunoturbidimetric method. Results obtained with different methods or kits cannot be used interchangeably. Performed By: #### 1 952-1 #### [facility] [id number] [address] [place] [address] [place] CBC W Auto Differential pane l (Bld)on 07-25-2023 Basophils (Bld) [#/Vol] 0.05 10*3/uL Normal <0.11 [facility] Comment on above: Order Comment: Speci lizbeth Type: BLOOD SPECIMEN Ordering Facility: [facility] Address: [address] [place] [address] Performed By: #### 5 7021-8 #### [facility] [id number] [address] [place] [address] [place] Basophils/100 WBC (Bld) 0.7 % Normal [facility] Comment on above: Order Comment: Speci men Type: BLOOD SPECIMEN Ordering Facility: [facility] Address: [address] [place] [address] Performed By: #### 5 7021-8 #### [facility] [id number] [address] [place] [address] [place] Differential cell count method Nom (Bld) Auto Normal [facility] Comment on above: Order Comment: Speci men Type: BLOOD SPECIMEN Ordering Facility: [facility] Address: [address] [place] [address] Performed By: #### 5 7021-8 #### [facility] [id number] [address] [place] [address] [place] Eosinophils (Bld) [#/Vol] 0.14 10*3/uL Normal <0.46 [facility] [facility] Comment on above: Order Comment: Speci men Type: BLOOD SPECIMEN Ordering Facility: [facility] Address: [address] [place] [address] Performed By: #### 5 7021-8 #### [facility] [id number] [address] [place] [address] [place] Eosinophils/100 WBC (Bld) 1.9 % Normal [facility] Comment on above: Order Comment: Speci men Type: BLOOD SPECIMEN Ordering Facility: [facility] Address: [address] [place] [address] Performed By: #### 5 7021-8 #### [facility] [id number] [address] [place] [address] [place] Erythrocyte distribution width (RBC) [Ratio] 15.0 % Normal 11.5-15.0 [facility] Comment on above: Order Comment: Speci men Type: BLOOD SPECIMEN Ordering Facility: [facility] Address: [address] [place] [address] Performed By: #### 5 7021-8 #### [facility] [id number] [address] [place] [address] [place] Hematocrit (Bld) [Volume fraction] 41.6 % Normal 39.0-51.0 [facility] Comment on above: Order Comment: Speci men Type: BLOOD SPECIMEN Ordering Facility: [facility] Address: [address] [place] [address] Performed By: #### 5 7021-8 #### [facility] [id number] [address] [place] [address] [place] Hemoglobin (Bld) [Mass/Vol] 13.2 g/dL Normal 13.0-17.0 [facility] Comment on above: Order Comment: Speci men Type: BLOOD SPECIMEN Ordering Facility: [facility] Address: [address] [place] [address] Performed By: #### 5 7021-8 #### [facility] [id number] [address] [place] [address] [place] Immature granulocytes (Bld) [#/Vol] 0.05 10*3/uL Normal <0.10 [facility] Comment on above: Order Comment: Speci men Type: BLOOD SPECIMEN Ordering Facility: [facility] Address: [address] [place] [address] Performed By: #### 5 7021-8 #### [facility] [id number] [address] [place] [address] [place] Immature granulocytes/100 WBC (Bld) 0.7 % Normal [facility] Comment on above: Order Comment: Speci men Type: BLOOD SPECIMEN Ordering Facility: [facility] Address: [address] [place] [address] Performed By: #### 5 7021-8 #### [facility] [id number] [address] [place] [address] [place] Lymphocytes (Bld) [#/Vol] 2.56 10*3/uL Normal 1.00-4.00 [facility] Comment on above: Order Comment: Speci men Type: BLOOD SPECIMEN Ordering Facility: [facility] Address: [address] [place] [address] Performed By: #### 5 7021-8 #### [facility] [id number] [address] [place] [address] [place] Lymphocytes/100 WBC (Bld) 35.4 % Normal [facility] Comment on above: Order Comment: Speci men Type: BLOOD SPECIMEN Ordering Facility: [facility] Address: [address] [place] [address] Performed By: #### 5 7021-8 #### [facility] [id number] [address] [place] [address] [place] MCH (RBC) [Entitic mass] 25.0 pg Low 26.0-34.0 [facility] Comment on above: Order Comment: Speci men Type: BLOOD SPECIMEN Ordering Facility: [facility] Address: [address] [place] [address] Performed By: #### 5 7021-8 #### [facility] [id number] [address] [place] [address] [place] MCHC (RBC) [Mass/Vol] 31.7 g/dL Normal 30.5-36.0 [facility] Comment on above: Order Comment: Speci men Type: BLOOD SPECIMEN Ordering Facility: [facility] Address: [address] [place] [address] Performed By: #### 5 7021-8 #### [facility] [id number] [address] [place] [address] [place] MCV (RBC) [Entitic vol] 78.6 fL Low 80.0-100.0 [facility] Comment on above: Order Comment: Speci men Type: BLOOD SPECIMEN Ordering Facility: [facility] Address: [address] [place] [address] Performed By: #### 5 7021-8 #### [facility] [id number] [address] [place] [address] [place] Monocytes (Bld) [#/Vol] 0.56 10*3/uL Normal <0.87 [facility] Comment on above: Order Comment: Speci men Type: BLOOD SPECIMEN Ordering Facility: [facility] Address: [address] [place] [address] Performed By: #### 5 7021-8 #### [facility] [id number] [address] [place] [address] [place] Monocytes/100 WBC (Bld) 7.7 % Normal [facility] Comment on above: Order Comment: Speci men Type: BLOOD SPECIMEN Ordering Facility: [facility] Address: [address] [place] [address] Performed By: #### 5 7021-8 #### [facility] [id number] [address] [place] [address] [place] Neutrophils (Bld) [#/Vol] 3.88 10*3/uL Normal 1.45-7.50 [facility] Comment on above: Order Comment: Speci men Type: BLOOD SPECIMEN Ordering Facility: [facility] Address: [address] [place] [address] Performed By: #### 5 7021-8 #### [facility] [id number] [address] [place] [address] [place] Neutrophils/100 WBC (Bld) 53.6 % Normal [facility] Comment on above: Order Comment: Speci men Type: BLOOD SPECIMEN Ordering Facility: [facility] Address: [address] [place] [address] Performed By: #### 5 7021-8 #### [facility] [id number] [address] [place] [address] [place] Nucleated RBC (Bld) [#/Vol] 10*3/uL Normal <0.01 [facility] Comment on above: Order Comment: Speci men Type: BLOOD SPECIMEN Ordering Facility: [facility] Address: [address] [place] [address] Performed By: #### 5 7021-8 #### [facility] [id number] [address] [place] [address] [place] Nucleated RBC/100 WBC (Bld) [Ratio] 0.0 /100 WBC Normal [facility] Comment on above: Order Comment: Speci men Type: BLOOD SPECIMEN Ordering Facility: [facility] Address: [address] [place] [address] Performed By: #### 5 7021-8 #### [facility] [id number] [address] [place] [address] [place] Platelet mean volume (Bld) [Entitic vol] 10.1 fL Normal 9.0-12.7 [facility] Comment on above: Order Comment: Speci men Type: BLOOD SPECIMEN Ordering Facility: [facility] Address: [address] [place] [address] Performed By: #### 5 7021-8 #### [facility] [id number] [address] [place] [address] [place] Platelets (Bld) [#/Vol] 228 10*3/uL Normal 150-400 [facility] Comment on above: Order Comment: Speci men Type: BLOOD SPECIMEN Ordering Facility: [facility] Address: [address] [place] [address] Performed By: #### 5 7021-8 #### [facility] [id number] [address] [place] [address] [place] RBC (Bld) [#/Vol] 5.29 10*6/uL Normal 4.20-6.00 [facility] Comment on above: Order Comment: Speci men Type: BLOOD SPECIMEN Ordering Facility: [facility] Address: [address] [place] [address] Performed By: #### 5 7021-8 #### [facility] [place] [id number] [address] [place] [address] [place] WBC (Bld) [#/Vol] 7.24 10*3/uL Normal 3.70-11.00 [facility] Comment on above: Order Comment: Speci men Type: BLOOD SPECIMEN Ordering Facility: [facility] Address: [address] [place] [address] Performed By: #### 5 7021-8 #### [facility] [place] [id number] [address] [place] [address] [place] Basophils (Bld) [#/Vol] 0.05 10*3/uL <0.11 k/uL [facility] Basophils/100 WBC (Bld) 0.7 % [facility] Differential cell count method Nom (Bld) Auto [facility] Eosinophils (Bld) [#/Vol] 0.14 10*3/uL <0.46 k/uL [facility] Eosinophils/100 WBC (Bld) 1.9 % [facility] Erythrocyte distribution width (RBC) [Ratio] 15.0 % 11.5 - 15.0 % [facility] Hematocrit (Bld) [Volume fraction] 41.6 % 39.0 - 51.0 % [facility] ic Hemoglobin (Bld) [Mass/Vol] 13.2 g/dL 13.0 - 17.0 g/dL [facility] Immature granulocytes (Bld) [#/Vol] 0.05 10*3/uL <0.10 k/uL [facility] Immature granulocytes/100 WBC (Bld) 0.7 % [facility] Lymphocytes (Bld) [#/Vol] 2.56 10*3/uL 1.00 - 4.00 k/uL [facility] Lymphocytes/100 WBC (Bld) 35.4 % [facility] MCH (RBC) [Entitic mass] 25.0 pg Low 26.0 - 34.0 pg [facility] MCHC (RBC) [Mass/Vol] 31.7 g/dL 30.5 - 36.0 g/dL [facility] MCV (RBC) [Entitic vol] 78.6 fL Low 80.0 - 100.0 fL [facility] Monocytes (Bld) [#/Vol] 0.56 10*3/uL <0.87 k/uL [facility] Monocytes/100 WBC (Bld) 7.7 % [facility] Neutrophils (Bld) [#/Vol] 3.88 10*3/uL 1.45 - 7.50 k/uL [facility] Neutrophils/100 WBC (Bld) 53.6 % [facility] Nucleated RBC (Bld) [#/Vol] <0.01 k/uL [facility] Nucleated RBC/100 WBC (Bld) [Ratio] 0.0 /100 WBC [facility] ic Platelet mean volume (Bld) [Entitic vol] 10.1 fL 9.0 - 12.7 fL [facility] Platelets (Bld) [#/Vol] 228 10*3/uL 150 - 400 k/uL [facility] RBC (Bld) [#/Vol] 5.29 10*6/uL 4.20 - 6.0 0 m/uL [facility] WBC (Bld) [#/Vol] 7.24 10*3/uL 3.70 - 11. 00 k/uL [facility] CNOVSPon 07-25-2023 CNOVSP Visit (SP) Office ([facility]) CECE GOLDEN ([id number]) 1990 M Date Time Provider Department 07/25/23 10:00 AM CARA BRAVO [facility] During your visit today, we recorded the following information about you: Temperature Pulse Respiration Blood pressure 97.9 degrees 91/minute 18/minute 137/84 Weight Height 159.3 kg 1.768 m Bettie Rothman LPN 07/25/2023 9:40 AM Signed Additional intake questions: Has the patient had fever, nausea, vomiting, diarrhea, constipation, fatigue for > 1 week? No Does the patient have a decreased appetite? No Does patient want to see a Gate Shear Operator? No (yes to any of above refer patient to schedulers for dietitian appointment) ) Does patient have any new or increased numbness or tingling of extremities? No Is patient interested in fertility information? No Does patient need any prescription refills? No Does patient have an advanced directive in place? no Electronically Signed By: KRISTIE Whitten Omer N, MD 07/25/2023 11:31 AM Signed PATIENT NAME: [facility] NO.: [id number] ATTENDING PHYSICIAN: Cara Bravo MD DATE OF SERVICE: July 25, [address] Timothy Lan for an opinion regarding mantle cell lymphoma. My final recommendations will be communicated back to the requesting physician by way of shared Medical record or letter to requesting physician via [place] mail. CHIEF COMPLAINT: Mantle cell lymphoma HPI: This is a 33 year old male presents for further evaluation and management of mantle cell lymphoma He developed raspy voice about a year ago. Persistent throat discomfort for 6 months and lately difficulty swallowing. He was recommended tonsillectomy for his sleep apnea and he underwent bilateral tonsillectomy 06/25/2023. Also noticed L neck enlarged node Mar-Apr 2023 Bilateral tonsillectomy June 25, 2023 A Right tonsil, excision: - Mantle cell lymphoma. B. Left tonsil, excision: - Mantle cell lymphoma. COMMENT: Tonsil, right and left, flow cytometric immunophenotyping: Monotypic kappa, CD5-positive B-cell population, coexpressing CD19, CD20 and CD22. They are negative for CD10 and CD200. - p53 immunostain was performed on block A1 with appropriate control and shows wild-type expression. The original diagnosis remains unchanged. [facility] HEMME PATH REVIW: Tonsils, right and left, excision ([id number]; 06/25/2023): - Mantle cell lymphoma - Immunohistochemical stains received from the referring institution are reviewed at [facility]. The neoplastic cells are positive for CD5, CD20, CD79a, cyclin D1, BCL2, and Pax5. Approximately 50% of these cells stain for Ki67. The stain for MUM1 is equivocal, approximately 40% of the cells are positive with variable intensities. The neoplastic cells are negative for CD3, CD10, CD21, CD23, BCL6, and p53 (less than 1%). - In conclusion, the findings in this case are diagnostic of mantle cell lymphoma. While the morphology of the neoplastic cells is not suggestive of a blastoid variant, the mitotic activity of this tumor is relatively high. Better since tonsillectomy Breathing and swallowing much improved His sleep apnea has also improved and scheduled for repeat sleep study Seen by Dr. Timothy Lan at [facility] Jul 14, 2023 Scheduled for a PET Jul 27, 2023 He reports a recent onset upper abdominal discomfort. He has been taking Pepcid but not helping much. He could not go to work couple days due to pain. He takes Tylenol. He also noticed night sweats starting around May 2023. Not daily but a few days a week. Denies any nausea or vomiting. Denies any bleeding from mouth gums urine or stool. Denies dark black stools. He has diabetes and sleep apnea REVIEW OF SYSTEMS GENERAL: + 60 lbs weight loss over a year on Ozempic. No malaise or fevers. + night sweats. No polyuria or polydipsia HEENT: Negative for headaches, No changes in vision, no nose bleeds RESPIRATORY: Chronic cough - possible reflux - , no wheezing and shortness of breath CARDIOVASCULAR: Negative for chest pain, + leg swelling x 2 weeks GI: + Upper abdominal discomfort, no blood in stools or black stools. No diarrhea, constipation, nausea, vomiting. : Negative for dysuria, frequency and incontinence MUSCULOSKELETAL: Negative for joint pain, + joint stiffness. Denies back pain SKIN: Negative for lesions, rash, and itching. HEMATOLOGY/LYMPHOLOGY Negative for prolonged bleeding, + bruising easily NEURO: Negative for numbness - tingling of hands/feet. No weakness. Current Outpatient Medications Medication Sig albuterol HFA (PROVENTIL HFA, VENTOLIN HFA) 90 mcg/actuation inhaler Inhale 2 Puffs as instructed every 6 hours as needed. famotidine (PEPCID) 20 mg tablet Take 20 mg by mouth. losartan (COZAAR) 100 mg tablet Take 1 tablet by mouth once daily. ondansetron (ZOFRAN) 8 mg tablet Take (more content not included)... Normal [facility] FERRITIN BLDon 07-25-2023 Ferritin [Mass/Vol] 117.0 ng/mL 30.3 - 565.7 ng/mL [facility] Ferritin SerPl-mCncon 02-07- 2024 Ferritin [Mass/Vol] 117.0 ng/mL Normal 30.3-565.7 [facility] Comment on above: Order Comment: Speci men Type: BLOOD SPECIMEN Ordering Facility: [facility] Address: [address] [place] [address] Performed By: #### 2 276-4 #### [facility] CLIA [id number] [address] [place] [address] [place] Iron and Iron binding capaci ty panelon 07-25-2023 Iron [Mass/Vol] 28 ug/dL Low 41-186 [facility] Comment on above: Order Comment: Speci men Type: BLOOD SPECIMEN Ordering Facility: [facility] Address: [address] [place] [address] Performed By: #### 5 0190-8, 40430-7, 3084-1 #### [facility] [place] [id number] [address] [place] [address] [place] Iron binding capacity [Mass/Vol] 273 ug/dL Normal 232-386 [facility] Comment on above: Order Comment: Speci men Type: BLOOD SPECIMEN Ordering Facility: [facility] Address: [address] [place] [address] Performed By: #### 5 0190-8, 60832-5, 3084-1 #### [facility] [place] [id number] [address] [place] [address] [place] Iron/TIBC [Molar ratio] 10.3 % Low 15.0-57.0 [facility] Comment on above: Order Comment: Speci men Type: BLOOD SPECIMEN Ordering Facility: [facility] Address: [address] [place] [address] Performed By: #### 5 0190-8, 47467-6, 3084-1 #### [facility] CLIA [id number] [address] [place] [address] [place] Iron [Mass/Vol] 28 ug/dL Low 41 - 186 ug/dL [facility] Iron binding capacity [Mass/Vol] 273 ug/dL 232 - 386 ug/dL [facility] Iron/TIBC [Molar ratio] 10.3 % Low 15.0 - 57.0 % [facility] Renal function 2000 panelon 07-25-2023 Albumin [Mass/Vol] 4.0 g/dL Normal 3.9-4.9 [facility] Comment on above: Order Comment: Speci men Type: BLOOD SPECIMEN Ordering Facility: [facility] Address: [address] [place] [address] Performed By: #### 5 0190-8, 87533-7, 3084-1 #### [facility] [id number] [address] [place] [address] [place] Anion gap [Moles/Vol] 11 mmol/L Normal 9-18 [facility] Comment on above: Order Comment: Speci men Type: BLOOD SPECIMEN Ordering Facility: [facility] Address: [address] [place] [address] Performed By: #### 5 0190-8, 59287-3, 3084-1 #### [facility] [id number] [address] [place] [address] [place] Calcium [Mass/Vol] 9.1 mg/dL Normal 8.5-10.2 [facility] Comment on above: Order Comment: Speci men Type: BLOOD SPECIMEN Ordering Facility: [facility] Address: [address] [place] [address] Performed By: #### 5 0190-8, 22714-6, 3084-1 #### [facility] [place] [id number] [address] [place] [address] [place] Chloride [Moles/Vol] 103 mmol/L Normal 97-105 [facility] Comment on above: Order Comment: Speci men Type: BLOOD SPECIMEN Ordering Facility: [facility] Address: [address] [place] [address] Performed By: #### 5 0190-8, 41702-6, 3084-1 #### [facility] CLIA [id number] [address] [place] [address] [place] CO2 [Moles/Vol] 26 mmol/L Normal 22-30 [facility] Comment on above: Order Comment: Speci men Type: BLOOD SPECIMEN Ordering Facility: [facility] Address: [address] [place] [address] Performed By: #### 5 0190-8, 97679-9, 3084-1 #### [facility] [id number] [address] [place] [address] [place] Creatinine [Mass/Vol] 0.67 mg/dL Low 0.73-1.22 [facility] Comment on above: Order Comment: Speci men Type: BLOOD SPECIMEN Ordering Facility: [facility] Address: [address] [place] [address] Performed By: #### 5 0190-8, 23878-6, 308- #### [facility] [id number] [place] [address] [place] Creatinine and Glomerular filtration rate.predicted panel (S/P/Bld) 126 mL/min/1.73m??? Normal >=60 [facility] Comment on above: Order Comment: Speci men Type: BLOOD SPECIMEN Ordering Facility: [facility] Address: [address] [place] [address] Result Comment: Trista mated Glomerular Filtration Rate (eGFR) is calculated using the 2020 CKD-EPI creatinine equation. This equation utilizes serum creatinine, sex, and age as parameters. The creatinine assay has traceable calibration to isotope dilution-mass spectrometry. Refer to KDIGO guidelines for clinical interpretation. In patients with unstable renal function, e.g. those with acute kidney injury, the eGFR may not accurately reflect actual GFR. Performed By: #### 5 0190-8, 97242-6, 3084-1 #### [facility] [id number] [address] [place] [address] [place] Glucose [Mass/Vol] 117 mg/dL High 74-99 [facility] Comment on above: Order Comment: Jojo nieves Type: BLOOD SPECIMEN Ordering Facility: [facility] Address: [address] [place] [address] Result Comment: The [place] [employer] (ADA) provides guidance for cutoff values for fasting glucose and random glucose. The ADA defines fasting as no caloric intake for at least 8 hours. Fasting plasma glucose results between 100 to 125 mg/dL indicate increased risk for diabetes (prediabetes). Fasting plasma glucose results greater than or equal to 126 mg/dL meet the criteria for diagnosis of diabetes. In the absence of unequivocal hyperglycemia, results should be confirmed by repeat testing. In a patient with classic symptoms of hyperglycemia or hyperglycemic crisis, random plasma glucose results greater than or equal to 200 mg/dL meet the criteria for diagnosis of diabetes. Reference: Standards of Medical Care in Diabetes 2016, [place] [employer]. Diabetes Care. 2016.39(Suppl 1). Performed By: #### 5 0190-8, 43538-7, 3084-1 #### [facility] [place] [id number] [address] [place] [address] [place] Phosphate [Mass/Vol] 3.8 mg/dL Normal 2.7-4.8 [facility] Comment on above: Order Comment: Jojo nieves Type: BLOOD SPECIMEN Ordering Facility: [facility] Address: [address] [place] [address] Performed By: #### 5 0190-8, 79125-6, 3084-1 #### [facility] [place] [id number] [address] [place] [address] [place] Potassium [Moles/Vol] 4.2 mmol/L Normal 3.7-5.1 [facility] Comment on above: Order Comment: Jojo nieves Type: BLOOD SPECIMEN Ordering Facility: [facility] Address: [address] [place] [address] Performed By: #### 5 0190-8, 83989-1, 3084-1 #### [facility] [place] [id number] [address] [place] [address] [place] Sodium [Moles/Vol] 140 mmol/L Normal 136-144 [facility] Comment on above: Order Comment: Speci men Type: BLOOD SPECIMEN Ordering Facility: [facility] Address: [address] [place] [address] Performed By: #### 5 0190-8, 33420-8, 3084-1 #### [facility] CLIA [id number] [address] [place] [address] [place] Urea nitrogen [Mass/Vol] 16 mg/dL Normal 9-24 [facility] Comment on above: Order Comment: Speci men Type: BLOOD SPECIMEN Ordering Facility: [facility] Address: [address] [place] [address] Performed By: #### 5 0190-8, 74994-8, 3084-1 #### [facility] CLIA [id number] [address] [place] [address] [place] Albumin [Mass/Vol] 4.0 g/dL 3.9 - 4.9 g/dL [facility] Anion gap [Moles/Vol] 11 mmol/L 9 - 18 mmol/L [facility] Calcium [Mass/Vol] 9.1 mg/dL 8.5 - 10. 2 mg/dL [facility] Chloride [Moles/Vol] 103 mmol/L 97 - 105 mmol/L [facility] CO2 [Moles/Vol] 26 mmol/L 22 - 30 mmol/L [facility] Creatinine [Mass/Vol] 0.67 mg/dL Low 0.73 - 1.22 mg/dL [facility] Estimated Glomerular Filtration Rate 126 mL/min/1.73m >=60 mL/min/1.73m [facility] Glucose [Mass/Vol] 117 mg/dL High 74 - 99 mg/dL [facility] Phosphate [Mass/Vol] 3.8 mg/dL 2.7 - 4.8 mg/dL [facility] Potassium [Moles/Vol] 4.2 mmol/L 3.7 - 5.1 mmol/L [facility] Sodium [Moles/Vol] 140 mmol/L 136 - 144 mmol/L [facility] Urea nitrogen [Mass/Vol] 16 mg/dL 9 - 24 mg/dL [facility] URIC ACID BLOODon 07-25-2023 Urate [Mass/Vol] 5.1 mg/dL 4.0 - 8.1 mg/dL [facility] Urate SerPl-mCncon Urate [Mass/Vol] 5.1 mg/dL Normal 4.0-8.1 [facility] Comment on above: Order Comment: Speci men Type: BLOOD SPECIMEN Ordering Facility: [facility] Address: [address] [place] [address] Performed By: #### 5 0190-8, 83011-4, 3084-1 #### [facility] CLIA [id number] [address] [place] [address] [place] Cult,Funguson 07-24-2023 Cult,Fungus Specimen Description .TONSIL Direct Exam NO FUNGAL ELEMENTS SEEN Culture NO GROWTH 29 DAYS Report Status FINAL 07/24/2023 Normal [facility] Comment on above: Performed By: #### F C #### [address] [id number] Tile Mechanic Helper: Munir Menjivar MD Cult,Fungus Specimen Description .TONSIL Special Requests RT TONSIL TISSUE Direct Exam NO FUNGAL ELEMENTS SEEN Culture NO GROWTH 29 DAYS Report Status FINAL 07/24/2023 Normal [facility] Comment on above: Performed By: #### F C #### [address] [id number] Tile Mechanic Helper: Munir Menjivar MD OUTSIDE SURG PATH SLIDE REVI EWon 07-23-2023 CASE REPORT Normal [facility] Comment on above: Order Comment: Speci men Type: FORMALIN-FIXED PARAFFIN-EMBEDDED TISSUE SPECIMEN Ordering Facility: [facility] Outside Review Address: , , Result Comment: Surg ical Pathology Report Case: [id number] Authorizing Provider: Cara Bravo MD Collected: 07/23/2023 07:34 AM Ordering Location: [facility] Main Received: 07/23/2023 07:30 AM [facility] Pathologist: Andres Seth V, MD, PhD Specimen: SLIDE(S), 27 SLIDES [id number] Performed By: #### L [id number] #### [facility] [place] [id number] [address] [place] [address] DIAGNOSIS COMMENT Normal [facility] Comment on above: Order Comment: Speci men Type: FORMALIN-FIXED PARAFFIN-EMBEDDED TISSUE SPECIMEN Ordering Facility: [facility] Outside Review Address: , , Result Comment: Hist ologic sections show fragments of non-keratinizing squamous mucosa overlying an abundant lymphoma infiltrate with nodular pattern. The lymphoma cells are monomorphic, intermediate-sized, with scant cytoplasm and slight irregular nuclei with mature chromatin. The mitotic activity is relatively high (4-5 mitotic figures per high power field). According to the accompanying pathologic report flow cytometric immunophenotypic analysis performed elsewhere on this specimen identified a population of monotypic kappa B-cells positive for CD5 and negative for CD10 or CD200. Immunohistochemical stains received from the referring institution are reviewed at [facility]. The neoplastic cells are positive for CD5, CD20, CD79a, cyclin D1, BCL2, and Pax5. Approximately 50% of these cells stain for Ki67. The stain for MUM1 is equivocal, approximately 40% of the cells are positive with variable intensities. The neoplastic cells are negative for CD3, CD10, CD21, CD23, BCL6, and p53 (less than 1%). In conclusion, the findings in this case are diagnostic of mantle cell lymphoma. While the morphology of the neoplastic cells is not suggestive of a blastoid variant, the mitotic activity of this tumor is relatively high. Performed By: #### L [id number] #### [facility] [place] [id number] [address] [place] [address] FINAL DIAGNOSIS Normal [facility] Comment on above: Order Comment: Speci men Type: FORMALIN-FIXED PARAFFIN-EMBEDDED TISSUE SPECIMEN Ordering Facility: [facility] Outside Review Address: , , Result Comment: Herb davila from [place], [place] Tonsils, right and left, excision ([id number]; 06/25/2023): - Mantle cell lymphoma. - See comment. ANNE-MARIE/jesenia 07/23/2023 Performed By: #### L [id number] #### [facility] CLIA [id number] [address] [place] [address] OF [facility] FINAL PERFORMING LAB Normal [facility] Comment on above: Order Comment: Speci men Type: FORMALIN-FIXED PARAFFIN-EMBEDDED TISSUE SPECIMEN Ordering Facility: Outside Review Address: , , Result Comment: Diag nostic interpretation performed at [facility], [address] [place] [address] CLIA# [id number] Parimutuel Ticket Cashier: Ulices Henson M.D. Performed By: #### L [id number] #### [facility] CLIA [id number] [address] [place] [address] CBC AND AUTO DIFFon 07-14-19 24 Band form neutrophils/100 WBC (Bld) 2.0 % Normal [facility] Comment on above: Performed By: #### C BCA, CMP, 2532-0, 3084-1, 26792-3, 5193-8, 5196-1 #### [facility] ([id number]) [address], [address] [place] [address] Eosinophils (Bld) [#/Vol] 0.2 10*3/uL Normal 0.0-0.4 [facility] Comment on above: Performed By: #### C BCA, CMP, 2532-0, 3084-1, 52881-1, 5193-8, 5196-1 #### [facility] ([id number]) [address], [address] [place] [address] Eosinophils/100 WBC (Bld) 2.0 % Normal [facility] Comment on above: Performed By: #### C BCA, CMP, 2532-0, 3084-1, 44706-8, 5193-8, 5196-1 #### [facility] ([id number]) [address], [address] [place] [address] Erythrocyte distribution width (RBC) [Ratio] 15.6 % High 11.5-15.0 [facility] Comment on above: Performed By: #### C BCA, CMP, 2532-0, 3084-1, 87325-6, 5193-8, 5196-1 #### [facility] ([id number]) [address], [facility] [address] [place] [address] Hematocrit (Bld) [Volume fraction] 39.2 % Normal 39-49 [facility] Comment on above: Performed By: #### C BCA, CMP, 2532-0, 3084-1, 47813-6, 5193-8, 5196-1 #### [facility] ([id number]) [address] [address] [place] [address] Hemoglobin (Bld) [Mass/Vol] 13.0 g/dL Normal 13.0-17.0 [facility] Comment on above: Performed By: #### C BCA, CMP, 2532-0, 3084-1, 19252-3, 5193-8, 5196-1 #### [facility] ([id number]) [address] [address] Lymphocytes (Bld) [#/Vol] 3.3 10*3/uL Normal 1.0-3.5 [facility] Comment on above: Performed By: #### C BCA, CMP, 2532-0, 3084-1, 82320-6, 5193-8, 5196-1 #### [facility] ([id number]) [address] [address] [place] [address] Lymphocytes/100 WBC (Bld) 43.0 % Normal [facility] Comment on above: Performed By: #### C BCA, CMP, 2532-0, 3084-1, 68083-9, 5193-8, 5196-1 #### [facility] ([id number]) [address], [address] [place] [address] MCH (RBC) [Entitic mass] 25.9 pg Low 27-34 [facility] Comment on above: Performed By: #### C BCA, CMP, 2532-0, 3084-1, 56695-6, 5193-8, 5196-1 #### [facility] ([id number]) [address], [address] [place] [address] MCHC (RBC) [Mass/Vol] 33.1 g/dL Normal 32-36 [facility] Comment on above: Performed By: #### C BCA, CMP, 2532-0, 3084-1, 03097-4, 5193-8, 5196-1 #### [facility] ([id number]) [address] [address] [place] [address] MCV (RBC) [Entitic vol] 78 fL Low 80-100 [facility] Comment on above: Performed By: #### C BCA, CMP, 2532-0, 3084-1, 68296-1, 5193-8, 5196-1 #### [facility] ([id number]) [address], [address] [place] [address] Monocytes (Bld) [#/Vol] 0.9 10*3/uL Normal 0-0.9 [facility] Comment on above: Performed By: #### C BCA, CMP, 2532-0, 3084-1, 23008-6, 5193-8, 5196-1 #### [facility] ([id number]) [address] [address] [place] [address] Monocytes/100 WBC (Bld) 12.0 % Normal [facility] Comment on above: Performed By: #### C BCA, CMP, 2532-0, 3084-1, 07165-8, 5193-8, 5196-1 #### [facility] ([id number]) [address] [address] [place] [address] Neutrophils (Bld) [#/Vol] 3.4 10*3/uL Normal 1.5-6.6 [facility] Comment on above: Performed By: #### C BCA, CMP, 2532-0, 3084-1, 60947-1, 5193-8, 5196-1 #### [facility] ([id number]) [address], [address] [place] [address] Platelet mean volume (Bld) [Entitic vol] 8.7 fL Normal 7-12 [facility] Comment on above: Performed By: #### C BCA, CMP, 2532-0, 3084-1, 30929-7, 5193-8, 5196-1 #### [facility] ([id number]) [address] [address] [place] [address] Platelets (Bld) [#/Vol] 195 10*3/uL Normal 150-450 [facility] Comment on above: Performed By: #### C BCA, CMP, 2532-0, 3084-1, 27045-5, 5193-8, 5196-1 #### [facility] ([id number]) [address] [address] [place] [address] RBC COUNT 5.00 X10E12/L Normal 4.10-5.70 [facility] Comment on above: Performed By: #### C BCA, CMP, 2532-0, 3084-1, 60384-1, 5193-8, 5196-1 #### [facility] ([id number]) [address], [address] [place] [address] RBC morphology finding Nom (Bld) NORMAL Normal [facility] Comment on above: Performed By: #### C BCA, CMP, 2532-0, 3084-1, 08084-3, 5193-8, 5196-1 #### [facility] ([id number]) [address] [address] [place] [address] SEG NEUTROPHIL 41.0 % Normal [facility] Comment on above: Performed By: #### C BCA, CMP, 2532-0, 3084-1, 23420-6, 5193-8, 5196-1 #### [facility] ([id number]) [address], [facility] [address] [place] [address] WBC (Bld) [#/Vol] 7.8 10*3/uL Normal 4.0-11.0 [facility] Comment on above: Performed By: #### C BCA, CMP, 2532-0, 3084-1, 24204-6, 5193-8, 5196-1 #### [facility] ([id number]) [address], [facility] [address] [place] [address] COMPREHENSIVE METABOLIC PANE Maurisio 07-14-2023 Albumin [Mass/Vol] 3.8 g/dL Normal 3.2-5.3 [facility] Comment on above: Performed By: #### C BCA, CMP, 2532-0, 3084-1, 65500-2, 5193-8, 5196-1 #### [facility] ([id number]) [address], [facility] [address] [place] [address] ALP [Catalytic activity/Vol] 90 U/L Normal 39-130 [facility] Comment on above: Performed By: #### C BCA, CMP, 2532-0, 3084-1, 22580-5, 5193-8, 5196-1 #### [facility] ([id number]) [address], [address] [place] [address] ALT [Catalytic activity/Vol] 12 U/L Normal 0-40 [facility] Comment on above: Performed By: #### C BCA, CMP, 2532-0, 3084-1, 46144-0, 5193-8, 5196-1 #### [facility] ([id number]) [address], [address] [place] [address] Anion gap [Moles/Vol] 9 mmol/L Normal 5-15 [facility] Comment on above: Performed By: #### C BCA, CMP, 2532-0, 3084-1, 18360-8, 5193-8, 5196-1 #### [facility] ([id number]) [address], [address] [place] [address] AST [Catalytic activity/Vol] 16 U/L Normal 0-41 [facility] Comment on above: Performed By: #### C BCA, CMP, 2532-0, 3084-1, 44173-5, 5193-8, 5196-1 #### [facility] ([id number]) [address], [address] [place] [address] Bilirubin [Mass/Vol] 0.6 mg/dL Normal 0.3-1.2 [facility] Comment on above: Performed By: #### C BCA, CMP, 2532-0, 3084-1, 66665-6, 5193-8, 5196-1 #### [facility] ([id number]) [address], [address] [place] [address] Calcium [Mass/Vol] 8.8 mg/dL Normal 8.5-10.5 [facility] Comment on above: Performed By: #### C BCA, CMP, 2532-0, 3084-1, 14947-6, 5193-8, 5196-1 #### [facility] ([id number]) [address], [address] [place] [address] Chloride [Moles/Vol] 105 mmol/L Normal 98-109 [facility] Comment on above: Performed By: #### C BCA, CMP, 2532-0, 3084-1, 04258-3, 5193-8, 5196-1 #### [facility] ([id number]) [address], [address] [place] [address] CO2 [Moles/Vol] 28 mmol/L Normal 22-32 [facility] Comment on above: Performed By: #### C BCA, CMP, 2532-0, 3084-1, 94194-4, 5193-8, 5196-1 #### [facility] ([id number]) [address] [place] [address] Creatinine [Mass/Vol] 0.55 mg/dL Low 0.60-1.30 [facility] Comment on above: Result Comment: METH OD TRACEABLE TO IDMS STANDARD Performed By: #### C BCA, CMP, 2532-0, 3084-1, 63469-5, 5193-8, 5196-1 #### [facility] ([id number]) [address], [address] [place] [address] eGFR (CKD-EPI) NON-RACE DEPENDENT >90 Normal >59 [facility] Comment on above: Result Comment: Reported eGFR is based on the CKD-EPI 2020 equation that does not use a race coefficient. Performed By: #### C BCA, CMP, 2532-0, 3084-1, 87091-1, 5193-8, 5196-1 #### [facility] ([id number]) [address] [place] [address] Glucose [Mass/Vol] 126 mg/dL High 65-99 [facility] Comment on above: Performed By: #### C BCA, CMP, 2532-0, 3084-1, 05085-5, 5193-8, 5196-1 #### [facility] ([id number]) [address] [place] [address] Potassium [Moles/Vol] 4.1 mmol/L Normal 3.5-5.0 [facility] Comment on above: Performed By: #### C BCA, CMP, 2532-0, 3084-1, 35845-2, 5193-8, 5196-1 #### [facility] ([id number]) [address], [address] [place] [address] Protein [Mass/Vol] 6.5 g/dL Normal 6.0-8.0 [facility] Comment on above: Performed By: #### C BCA, CMP, 2532-0, 3084-1, 19952-1, 5193-8, 5196-1 #### [facility] ([id number]) [address], [address] [place] [address] Sodium [Moles/Vol] 142 mmol/L Normal 134-146 [facility] Comment on above: Performed By: #### C BCA, CMP, 2532-0, 3084-1, 57081-9, 5193-8, 5196-1 #### [facility] ([id number]) [address], [address] [place] [address] Urea nitrogen [Mass/Vol] 14 mg/dL Normal 5-23 [facility] Comment on above: Performed By: #### C BCA, CMP, 2532-0, 3084-1, 48211-7, 5193-8, 5196-1 #### [facility] ([id number]) [address], [address] [place] [address] HBV core Ab [place] Qlon 07-14-19 ANTI HBc Negative Normal NEG [facility] Comment on above: Performed By: #### C BCA, CMP, 2532-0, 3084-1, 78949-5, 5193-8, 5196-1 #### [facility] ([id number]) [address], [address] [place] [address] HBV surface Ab IA Qnon 07-14 Anti HBs quant. <8.00 Normal [facility] Comment on above: Result Comment: Vacc inated: >=12mIU/mL, Positive (Immune) Unvaccinated: <8mIU/mL, Negative (Not Immune) 8-11.99 mIU/mL: Indeterminate, (Considered Not Immune) Performed By: #### C BCA, CMP, 2532-0, 3084-1, 61233-0, 5193-8, 5196-1 #### [facility] ([id number]) [address] [facility] [facility] [place] [address] HBV surface Ag IA Qlon 07-14 HEPATITIS B SURF AG Negative Normal NEG [facility] Comment on above: Performed By: #### C BCA, CMP, 2532-0, 3084-1, 71447-0, 5193-8, 5196-1 #### [facility] ([id number]) [address] [facility], [address] [place] [address] LDH [Catalytic activity/Vol] on 07-14-2023 LDH 312 U/L High 100-235 [facility] Comment on above: Performed By: #### C BCA, CMP, 2532-0, 3084-1, 25761-4, 5193-8, 5196-1 #### [facility] ([id number]) [address] [facility], [address] [place] [address] URIC ACIDon 07-14-2023 Urate [Mass/Vol] 5.5 mg/dL Normal 2.6-7.[address] [facility] Comment on above: Performed By: #### C BCA, CMP, 2532-0, 3084-1, 51414-9, 5193-8, 5196-1 #### [facility] ([id number]) [address] [facility] [facility] [place] [address] Cult,Aerobe/Anaerobeon 06-30 Cult,Aerobe/Anaero be Specimen Description .TONSIL Special Requests LEFT TONSIL TISSUE Direct Exam NO NEUTROPHILS SEEN NO BACTERIA SEEN Culture NORMAL [place] No anaerobic organisms isolated at 5 days. Report Status FINAL 06/30/2023 Normal [facility] Comment on above: Performed By: #### A ANC #### [facility] [address] [place] [address] Tile Mechanic Helper: Munir Menjivar MD Cult,Aerobe/Anaero be Specimen Description .TONSIL Special Requests RT TONSIL TISSUE Direct Exam NO NEUTROPHILS SEEN NO BACTERIA SEEN Culture NORMAL [place] No anaerobic organisms isolated at 5 days. Report Status FINAL 06/30/2023 Normal [facility] Comment on above: Performed By: #### A ANC #### [address] [address] Tile Mechanic Helper: Munir Menjivar MD Flow Cytometry,Nd/Flon 06-29 Flow Cyto,Node/Fluid VS24 517 Normal [facility] Comment on above: Result Comment: SEE SEPARATE REPORT Performed By: #### F LNF #### [address] [address] Tile Mechanic Helper: Munir Menjivar MD Flow Cyto,Node/Fluid VS24 517 Normal [facility] Comment on above: Result Comment: SEE SEPARATE REPORT Performed By: #### F LNF #### [address] [address] Tile Mechanic Helper: Munir Menjivar MD Flow Cytometry,Nd/Flon 06-25 Flow Cytom Source RIGHT TONSIL Normal [facility] Comment on above: Performed By: #### F LNF #### [address] [address] Tile Mechanic Helper: Munir Menjivar MD Flow Cytom Source LEFT TONSIL Normal [facility] Comment on above: Performed By: #### F LNF #### [facility] [employer] [address] [place] [address] Tile Mechanic Helper: Munir Menjivar MD Molecular Cytogenetic FISHon 06-25-2023 Molecular Cytogenetic FISH (NOTE) Specimen(s) Received: [place] Clinical Information: Obstructive sleep apnea RESULTS: SPECIMEN PART A: Karyotype: nuc paty(BCL6x2)[200],(CCND1 ,IGH)x3(CCND1 con IGHx2)[163/200] SPECIMEN PART B: Karyotype: nuc paty(CCND1,IGH)x3(CCND1 con IGHx2)[152/200] Cytogenetic Diagnosis: FISH: PART A: 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 Examination of 200 interphase cells on specimen part A revealed an abnormal hybridization pattern in 81.5% (163/200) of cells consistent with the presence of an IGH::CCND1 fusion. Examination of 200 interphase cells on specimen part B revealed an abnormal hybridization pattern in 76% (152/200) of cells consistent with the presence of an IGH::CCND1 fusion. FISH analysis was performed using the LSI IGH/BCL2 dual-color dual-fusion translocation DNA probe (Vysis) that detects juxtaposition of the IGH locus on 14q32 and BCL2 gene sequences on chromosome 18q21 that occurs with the t(14;18). Examination of 200 interphase nuclei on specimen part A revealed a normal hybridization pattern. The preliminary results were reported to Dr. Oakley, and repeated back, on 06/28/22 [FISH positive for IGH::CCND1 fusion] are consistent with the final report. Please note that this analysis does not eliminate the possibility of abnormalities other than those to which the probes used are specifically directed, single gene defects, chromosomal mosaicism involving abnormal cell lines of low frequency, small structural chromosome abnormalities, or failure to sample any malignant clone(s) that may be present. The FISH test was developed and its performance characteristics determined by the [facility] at [facility] [employer]. It has not been cleared or approved by the US Food and Drug Administration. The FDA has determined that such clearance or approval is not necessary. This test is used for clinical purposes; it should not be viewed as investigational or for research. This laboratory is certified under the Clinical Laboratory Improvement Amendments of 1988 ( CLIA ) as qualified to perform high-complexity testing. Pursuant to the requirements of CLIA ' 88, this laboratory has established and verified the test's accuracy and precision. Professional component performed by Rashmi Edwards, Ph.D., [facility], [address] , [place], [place] (IA #: [id number]). Electronically Signed Out Rashmi Edwards, Ph.D., .[facility] Interpretation performed at: [address] [address] [facility] [address] [place] [phone] MOLECULAR CYTOGENETIC (FISH) CONSULTATION REPORT [facility] Wote Brando Oakley MD [facility] Surgical Pathology Reporton 06-25-2023 Surgical Pathology Report (NOTE) [id number] [facility] CONSULTING PATHOLOGISTS [facility] [address] [place] [phone] SURGICAL PATHOLOGY CONSULTATION Patient Name: CECE GOLDEN [facility] Rec: [id number] Path Number: [id number] Collected: 06/25/2023 Received: 06/25/2023 Reported: 06/28/2023 14:36 -- Diagnosis -- A. Right tonsil, excision: - Mantle cell lymphoma. B. Left tonsil, excision: - Mantle cell lymphoma. Keya Garcia Electronically Signed Out rdd/06/28/2023 Procedures/Addenda FLOW CYTOMETRY REPORT Date Ordered: 06/25/2023 Status: Signed Out Date Complete: 06/25/2023 By: Radha Rios Date Reported: 06/28/2023 INTERPRETATION A, B. [place], right and left, flow cytometric immunophenotyping: -Monotypic kappa, CD5-positive B-cell population, coexpressing CD19, CD20 and CD22. They are negative for CD10 and CD200. RESULTS-COMMENTS FLOW CYTOMETRIC ANALYSIS Sample type: Tonsils (A. Right and B. Left) Flow cytometric immunophenotyping analysis is performed on bilateral tonsils following rbc lysis procedure. The cells are labeled by direct ten color immunostaining procedure and analyzed on a [employer] flow cytometer. Viability: 90.7% (A. Right) and >95% (B. Left) Marker Panels: B-cell Tube: CD5, CD10, CD19, CD20, CD22, CD23, CD45, CD200, [place], Lambda T-cell Tube: CD2, CD3, CD4, CD5, CD7, CD8, CD16, CD45, CD56, CD57 This leuk/lymph immunophenotyping test was developed and its performance characteristics determined by [facility]. It has not been cleared or approved by the U.S. Food and Drug Administration. The FDA has determined that such clearance or approval is not necessary. This test is used for clinical purposes. It should not be regarded as investigational or for research. This laboratory is certified under the Clinical Laboratory Improvement Amendments of 1988 (CLIA) as qualified to perform high complexity clinical laboratory testing. Radha Rios ADDENDUM AFTER SPECIAL STAINS Date Ordered: 07/16/2023 Status: Signed Out Date Complete: 07/16/2023 By: Radha Harrell M.D. Date Reported: 07/16/2023 INTERPRETATION p53 immunostain was performed on block A1 with appropriate control and shows wild-type expression. The original diagnosis remains unchanged. Clinical Information Pre-Op Diagnosis: OBSTRUCTIVE SLEEP APNEA Operative Findings: RIGHT TONSIL LYMPHOMA WORK-UP PER DR. MICHELLE; LEFT TONSIL Operation Performed: TOTAL TONSILLECTOMY (NO COBLATOR) *EXTENDED PACU STAY*; INFERIOR TURBINATE REDUCTION kb Source of Specimen A: RIGHT TONSIL FOR LYMPHOMA WORK UP B: LEFT TONSIL Gross Description A. CECE GOLDEN, RIGHT TONSIL Received fresh is a 15.4 gram, 4.4 x 4.1 x 2.0 cm tonsil. The mucosa is richey-pink, hyperemic. The margin is inked blue. Sectioning reveals richey-pink, hyperemic and lobulated cut surfaces. Fresh tissue is placed in RPMI for flow cytometry and taken sterilely for microbiology studies. Touch preps are made, for possible further stains. Cut surfaces are homogeneous and richey without nodules or areas of necrosis. Sterile Proc Tech sections 2c. B. CECE GOLDEN, LEFT TONSIL Received fresh is a 1.6 gram, 2.0 x 1.5 x 0.7 cm aggregate of richey-pink, lobulated and ragged mucosal tissue. Fresh tissue placed in RPMI for flow cytometry and taken for microbiology studies. Touch preps are made. Cut surface is richey and homogeneous. Totally embedded 2c. tm Microscopic Description A. Tonsils (right >left) are enlarged with effaced architecture secondary to a lymphomatous infiltrate. Architecture is predominantly diffuse with some vague areas of nodularity. Lymphoma cells are small to medium in size, monomorphic, and show angulated small nuclei with irregular nuclear borders. Nucleoli are inconspicuous. Lymphoma is additionally characterized utilizing control appropriate immunostains. Lymphoma cells are positive for CD5, cyclin D1, CD20, CD79a, Bcl-2, mum 1, and PAX5. BCL6 shows variable weak to moderate staining and CD10 shows weak cytoplasmic staining in some of the lymphoma cells. CD3 and CD23 are negative. CD3 is positive in background small T lymphocytes, nonneoplastic. CD21 and CD23 show staining of areas with residual follicular dendritic cell meshworks. Cyclin D1 shows moderate to strong nuclear staining in >95% of the lymphoma cells. Ki-67 shows moderate or stronger nuclear staining in 60-75% of the lymphoma cells. Note: The case is reviewed in intradepartmental pathology consultation with consensus (AG, SF). B. Microscopic examination performed. SPECIMEN: Right and left tonsils PROCEDURE: Excisions TUMOR SITE: Lymphoma involving both tonsils HISTOLOGIC TYPE: Mantle cell lymphoma IMMUNOPHENOTYPING: Lymphoma is positive for CD20. See microscopic description above and separate flow cytometric immunophenotyping report. MOLECU (more content not included)... Normal [facility] COVID + FLU Quick Testingon 05-18-2023 SARS-CoV-2 (COVID-19) RNA DARA+probe Ql (Unsp spec) Negative 360[facility] Other COVID + FLU Quick Testing Negative 360T Other Quick Strepon 05-18-2023 S. pyogenes Org specific cx Ql (Throat) Negative 360T Other Quick Strep [facility] Other XR CSPINE MIN 4 VIEWSon 08-16 [...] Mild degenerative changes Electronically authenticated by: SHOLA MORGAN Date: 2022-09-01 15:32 Normal [facility] CT HEAD WO CONon 06-19-2021 CT HEAD [...] by: MATTHEW DOBBINS Date: 2021-06-18 23:11 Normal [facility] ALBUMIN, RANDOM URINE W/CREA TININEon 04-04-2021 ALBUMIN, URINE 1.7 mg/dL Normal See Note: servtag Comment on above: Result Comment: Refe rence Range: Reference Range Not established Performed By: #### 6 517, 7600, [id number] #### [facility] [place] [address] Interventional Physiatrist: Tomás Harris MD ALBUMIN/CREATININE RATIO, RANDOM URINE 22 mcg/mg creat Normal <30 [facility] Comment on above: Result Comment: The ADA [...] category. Performed By: #### 6 517, 7600, 98020 #### [facility] [place] [address] Interventional Physiatrist: Tomás Harris MD Creatinine (U) [Mass/Vol] 76 mg/dL Normal 20-320 [facility] Comment on above: Performed By: #### 6 517, 7600, 79410 #### [facility] [place] [address] Interventional Physiatrist: Tomás Harris MD [facility] 04-04-2021 Albumin [Mass/Vol] 4.3 g/dL Normal 3.6-5.1 [facility] Comment on above: Performed By: #### 6 517, 7600, 66182 #### [facility] [place] [address] Interventional Physiatrist: Tomás Harris MD Albumin/Globulin [Mass ratio] 1.5 {ratio} Normal 1.0-2.5 [facility] Comment on above: Performed By: #### 6 517, 7600, 73274 #### [facility] [place] [address] Interventional Physiatrist: Tomás Harris MD ALP [Catalytic activity/Vol] 77 U/L Normal 36-130 [facility] Comment on above: Performed By: #### 6 517, 7600, 84696 #### [facility] of [address], [address] [place] [address] Interventional Physiatrist: Tomás Harris MD ALT [Catalytic activity/Vol] 28 U/L Normal 9-46 [facility] Comment on above: Performed By: #### 6 517, 7600, 63911 #### [facility] of [place] [address] Interventional Physiatrist: Tomás Harris MD AST [Catalytic activity/Vol] 18 U/L Normal 10-40 [facility] Comment on above: Performed By: #### 6 517, 7600, 91205 #### [facility] of [place] [address] Interventional Physiatrist: Tomás Harris MD Bilirubin [Mass/Vol] 0.7 mg/dL Normal 0.2-1.2 [facility] Comment on above: Performed By: #### 6 517, 7600, 25960 #### [facility] of [place] [address] Interventional Physiatrist: Tomás Harris MD BUN/CREATININE RATIO NOT APPLICABLE Normal 6-22 [facility] Comment on above: Performed By: #### 6 517, 7600, 10138 #### [facility] of [place] [address] Interventional Physiatrist: Tomás Harris MD Calcium [Mass/Vol] 9.4 mg/dL Normal 8.6-10.3 [facility] Comment on above: Performed By: #### 6 517, 7600, 00644 #### [facility] of [place] [address] Interventional Physiatrist: Tomás Harris MD Chloride [Moles/Vol] 102 mmol/L Normal 98-110 [facility] Comment on above: Performed By: #### 6 517, 7600, 54047 #### [facility] of [place] [address] Interventional Physiatrist: Tomás Harris MD CO2 [Moles/Vol] 31 mmol/L Normal 20-32 [facility] Comment on above: Performed By: #### 6 517, 7600, 13542 #### [facility] [address], [address] [place] [address] Interventional Physiatrist: Tomás Harris MD Creatinine [Mass/Vol] 0.83 mg/dL Normal 0.60-1.35 [facility] Comment on above: Performed By: #### 6 517, 7600, 79979 #### [facility] [place] [address] Interventional Physiatrist: Tomás Harris MD eGFR NON-AFR. TURKISH 116 mL/min/1.73m2 Normal > OR = 60 [facility] Comment on above: Performed By: #### 6 517, 7600, 25583 #### [facility] [place] [address] Interventional Physiatrist: Tomás Harris MD GFR/1.73 sq M.predicted among blacks MDRD (S/P/Bld) [Vol rate/Area] 135 mL/min/{1.73_m2} Normal > OR = 60 [facility] Comment on above: Performed By: #### 6 517, 7600, 59262 #### [facility] [place] [address] Interventional Physiatrist: Tomás Harris MD Globulin (S) [Mass/Vol] 2.9 g/dL Normal 1.9-3.7 [facility] Comment on above: Performed By: #### 6 517, 7600, 74537 #### [facility] [place] [address] Interventional Physiatrist: Tomás Harris MD Glucose [Mass/Vol] 144 mg/dL High 65-139 [facility] Comment on above: Result Comment: Non-fasting reference interval For someone without known diabetes, a glucose value >125 mg/dL indicates that they may have diabetes and this should be confirmed with a follow-up test. Performed By: #### 6 517, 7600, 06832 #### [facility] [place] [address] Interventional Physiatrist: Tomás Harris MD Potassium [Moles/Vol] 4.2 mmol/L Normal 3.5-5.3 [facility] Comment on above: Performed By: #### 6 517, 7600, 59883 #### [facility] of [address], [address] [place] [address] Interventional Physiatrist: Tomás Harris MD Protein [Mass/Vol] 7.2 g/dL Normal 6.1-8.1 [facility] Comment on above: Performed By: #### 6 517, 7600, 24938 #### [facility] of [address], [address] [place] [address] Interventional Physiatrist: Tomás Harris MD Sodium [Moles/Vol] 139 mmol/L Normal 135-146 [facility] Comment on above: Performed By: #### 6 517, 7600, 51618 #### [facility] of [address], [address] [place] [address] Interventional Physiatrist: Tomás Harris MD Urea nitrogen [Mass/Vol] 16 mg/dL Normal 7-25 [facility] Comment on above: Performed By: #### 6 517, 0, 16735 #### [facility] of [address], [address] [place] [address] Interventional Physiatrist: Tomás Harris MD LIPID PANEL, [facility] 10-1 Cholesterol [Mass/Vol] 140 mg/dL Normal <200 [facility] Comment on above: Order Comment: FASTI NG:NO FASTING: NO Performed By: #### 6 517, 7600, 55108 #### [facility] of [address], [address] [place] [address] Interventional Physiatrist: Tomás Harris MD Cholesterol in HDL [Mass/Vol] 35 mg/dL Low > OR = 40 [facility] Comment on above: Order Comment: FASTI NG:NO FASTING: NO Performed By: #### 6 517, 7600, 19806 #### [facility] of [address], [address] [place] [address] Interventional Physiatrist: Tomás Harris MD Cholesterol in LDL [Mass/Vol] 76 mg/dL Normal [facility] Comment on above: Order Comment: FASTI NG:NO FASTING: NO Result Comment: Refe rence range: <100 Desirable range <100 mg/dL for primary prevention; <70 mg/dL for patients with CHD or diabetic patients with > or = 2 CHD risk factors. LDL-C is now calculated using the Ender calculation, which is a validated novel method providing better accuracy than the Friedewald equation in the estimation of LDL-C. Jeremiah SS et al. WILBERT. 2013;310(19): 8690-8386 (http://education.Quote Roller/faq/ENC419) Performed By: #### 6 517, 7600, 28138 #### [facility] [address], [address] [place] [address] Interventional Physiatrist: Tomás Harris MD Cholesterol.total/ Cholesterol in HDL [Mass ratio] 4.0 {ratio} Normal <5.0 [facility] Comment on above: Order Comment: FASTI NG:NO FASTING: NO Performed By: #### 6 517, 7600, 96390 #### [facility] [address], [address] [place] [address] Interventional Physiatrist: Tomás Harris MD NON HDL CHOLESTEROL 105 mg/dL (calc) Normal <130 [facility] Comment on above: Order Comment: FASTI NG:NO FASTING: NO Result Comment: For patients with diabetes plus 1 major ASCVD risk factor, treating to a non-HDL-C goal of <100 mg/dL (LDL-C of <70 mg/dL) is considered a therapeutic option. Performed By: #### 6 517, 7600, 61495 #### [facility] [address], [address] [place] [address] Interventional Physiatrist: Tomás Harris MD Triglyceride [Mass/Vol] 197 mg/dL High <150 [facility] Comment on above: Order Comment: FASTI NG:NO FASTING: NO Performed By: #### 6 517, 7600, 44696 #### [facility] [address], [address] [place] [address] Interventional Physiatrist: Tomás Harris MD COVID Quick Testingon 2020 Result Negative 360T Other XR ankle RT min 3V*on 2018 XR ankle RT min 3V* [facility] [place] [address] [place] [id number] XRay Report Signed Patient: Cece Golden MR#: [id number] : 1990 Acct:[id number] Age/Sex: 28 / M ADM Date: 09/29/18 Loc: XDUCLY Room: Type: [facility] Attending Dr: Chelsey PADRON Ordering Provider: Chelsey Starr Date of Service: 09/29/18 XR/XR foot RT min 3V*: S99.911A ([id number]) XR/XR ankle RT min 3V*: S99.911A Copies [...] Naeem Berumen M.D.09/29/2018 1:35 PM Dictation Location: [facility] Transcribed By: [facility] 09/29/18 1335 Dictated By: Naeem Berumen DO 09/29/18 1333 Signed By: 09/29/18 1335 Normal [facility] Vital Signs Date Time Vital Sign Value Performing Clinician Facility 08-16-2023 13:23-0500 Body height 176.5 cm [employer] DO Work Phone: [employer] 08-16-2023 13:23-0500 Body mass index (BMI) [Ratio] 48.14 kg/m2 JeanLoyaltyLion DO Work Phone: [employer] 08-16-2023 13:23-0500 Body temperature 98.6 [degF] Jean ArthaYantrang DO Work Phone: [facility] [employer] 08-16-2023 13:23-0500 Body weight 149.96 kg Jean De La Torreng DO Work Phone: [facility] [employer] 08-16-2023 13:23-0500 Diastolic blood pressure 72 mm[Hg] Jean De La Torreng DO Work Phone: [facility] [employer] 08-16-2023 13:23-0500 Heart rate 83 /min Jean De La Torreng DO Work Phone: [facility] 08-16-2023 13:23-0500 SaO2% (BldA) [Mass fraction] 96 % Jean De La Torreng DO Work Phone: [facility] [employer] [facility] 08-16-2023 13:23-0500 Systolic blood pressure 106 mm[Hg] Jean Gillette DO Work Phone: [facility] 08-15-2023 13:54-0500 Body height 176.5 cm Pfo 2 [facility] 08-15-2023 13:54-0500 Body mass index (BMI) [Ratio] 49.65 kg/m2 Pfo 2 [facility] 08-15-2023 13:54-0500 Body temperature 98.01 [degF] Pfo 2 [facility] 08-15-2023 13:54-0500 Body weight 154.68 kg Pfo 2 [facility] 08-15-2023 13:54-0500 Diastolic blood pressure 76 mm[Hg] Pfo 2 [facility] 08-15-2023 13:54-0500 Heart rate 86 /min Pfo 2 [facility] 08-15-2023 13:54-0500 Respiratory rate 18 /min Pfo 2 [facility] 08-15-2023 13:54-0500 SaO2% (BldA) [Mass fraction] 98 % Pfo 2 [facility] 08-15-2023 13:54-0500 Systolic blood pressure 124 mm[Hg] Pfo 2 [facility] 08-14-2023 13:23-0500 Diastolic blood pressure 72 mm[Hg] Pfo 5 [facility] 08-14-2023 13:23-0500 Heart rate 101 /min Pfo 5 [facility] 08-14-2023 13:23-0500 Respiratory rate 18 /min Pfo 5 [facility] 08-14-2023 13:23-0500 SaO2% (BldA) [Mass fraction] 98 % Pfo 5 [facility] 08-14-2023 13:23-0500 Systolic blood pressure 130 mm[Hg] Pfo 5 [facility] 08-14-2023 12:20-0500 Body temperature 97.11 [degF] Pf 5 [facility] 08-14-2023 08:05-0500 Body height 176.5 cm [facility] 5 [facility] 08-14-2023 08:05-0500 Body mass index (BMI) [Ratio] 49.07 kg/m2 Pf 5 [facility] 08-14-2023 08:05-0500 Body weight 152.86 kg Pf 5 [facility] 07-25-2023 09:37-0500 Body height 176.8 cm Cara Bravo MD Work Phone: [facility] 07-25-2023 09:37-0500 Body temperature 97.9 [degF] Cara Bravo MD Work Phone: [facility] 07-25-2023 09:37-0500 Body weight 159.3 kg Cara Bravo MD Work Phone: [facility] 07-25-2023 09:37-0500 Diastolic blood pressure 84 mm[Hg] Cara Bravo MD Work Phone: [facility] 07-25-2023 09:37-0500 Heart rate 91 /min Cara Bravo MD Work Phone: [facility] 07-25-2023 09:37-0500 Respiratory rate 18 /min Cara Bravo MD Work Phone: [facility] 07-25-2023 09:37-0500 SaO2% (BldA) [Mass fraction] 97 % Cara Bravo MD Work Phone: [facility] 07-25-2023 09:37-0500 Systolic blood pressure 137 mm[Hg] Cara Bravo MD Work Phone: [facility] 07-17-2023 09:15-0500 Body height 176.5 cm Maddi Fitch MD Work Phone: [facility] 07-17-2023 09:15-0500 Body mass index (BMI) [Ratio] 50.35 kg/m2 Maddi Fitch MD Work Phone: [facility] 07-17-2023 09:15-0500 Body weight 156.85 kg Maddi Fitch MD Work Phone: [facility] 07-17-2023 09:15-0500 Diastolic blood pressure 76 mm[Hg] Maddi Fitch MD Work Phone: [facility] 07-17-2023 09:15-0500 Heart rate 101 /min Maddi Fitch MD Work Phone: [facility] 07-17-2023 09:15-0500 SaO2% (BldA) [Mass fraction] 95 % Maddi Fitch MD Work Phone: [facility] 07-17-2023 09:15-0500 Systolic blood pressure 131 mm[Hg] Maddi Fitch MD Work Phone: [facility] 07-13-2023 15:30-0500 Body height 176.5 cm Timothy Lan MD Work Phone: [facility] 07-13-2023 15:30-0500 Body mass index (BMI) [Ratio] 50.67 kg/m2 Timothy Lan MD Work Phone: [facility] 07-13-2023 15:30-0500 Body temperature 98.49 [degF] Timothy Lan MD Work Phone: [facility] 07-13-2023 15:30-0500 Body weight 157.85 kg Timothy Lan MD Work Phone: [facility] [employer] [facility] 07-13-2023 15:30-0500 Diastolic blood pressure 85 mm[Hg] Timothy Lan MD Work Phone: [facility] [employer] [facility] 07-13-2023 15:30-0500 Heart rate 101 /min Timothy Lan MD Work Phone: [facility] [employer] [facility] 07-13-2023 15:30-0500 Respiratory rate 18 /min Timothy Lan MD Work Phone: [facility] [employer] [facility] 07-13-2023 15:30-0500 SaO2% (BldA) [Mass fraction] 96 % Timothy Lan MD Work Phone: [facility] [employer] [facility] 07-13-2023 15:30-0500 Systolic blood pressure 128 mm[Hg] Timothy Lan MD Work Phone: [facility] [employer] 07-12-2023 15:58-0500 Body height 180.3 cm Melanie Olga [employer]PL[employer]ANCE [employer] EQUIPMENT TECHNICIAN Work Phone: [facility] [employer] [facility] 07-12-2023 15:58-0500 Body mass index (BMI) [Ratio] 47.84 kg/m2 Melanie Olga [employer]PLIANCE [employer]AL EQUIPMENT TECHNICIAN Work Phone: [facility] [employer] [facility] 07-12-2023 15:58-0500 Body temperature 98.71 [degF] Melanie Olga COMPLIANCE [employer]ALE[employer]AL EQUIPMENT TECHNICIAN Work Phone: [facility] [employer] [facility] 07-12-2023 15:58-0500 Body weight 155.58 kg Melanie Olga COMPLIANCE [employer]AL EQUIPMENT TECHNICIAN [facility] 07-12-2023 15:58-0500 Diastolic blood pressure 72 mm[Hg] Melanie Olga COMPLIANCE [employer]AL EQUIPMENT TECHNICIAN Work Phone: [facility] [employer] [facility] 07-12-2023 15:58-0500 Heart rate 106 /min Melanie Olga [employer]PLIANCE [employer]AL EQUIPMENT TECHNICIAN Work Phone: [facility] [employer] [facility] 07-12-2023 15:58-0500 SaO2% (BldA) [Mass fraction] 96 % Melanie Nunez [employer]PLIANCE [employer]DENTAL EQUIPMENT TECHNICIAN Work Phone: [employer] 07-12-2023 15:58-0500 Systolic blood pressure 136 mm[Hg] Melanie Nunez COMPLIANCE [employer]AL EQUIPMENT TECHNICIAN Work Phone: [employer] 05-18-2023 11:00-0500 Body height 177.8 cm Jennifer Blayne Other [facility] Other 05-18-2023 11:00-0500 Body mass index (BMI) [Ratio] 48.78 kg/m2 Jennifer Cisneros Other [facility] Other 05-18-2023 11:00-0500 Body temperature 98.1 [degF] Jennifer Cisneros Other [facility] Other 05-18-2023 11:00-0500 Body weight 154.22 kg Jennifer Cisneros Other [facility] Other 05-18-2023 11:00-0500 Diastolic blood pressure 67 mm[Hg] Jennifer Cisneros Other [facility] Other 05-18-2023 11:00-0500 Respiratory rate 18 /min Jennifer Blayne Other [facility] Other 05-18-2023 11:00-0500 SaO2% (BldA) [Mass fraction] 98 % Jennifer Cisneros Other [facility] Other 05-18-2023 11:00-0500 Systolic blood pressure 111 mm[Hg] Jennifer Cisneros Other [facility] Other 08-22-2022 09:55-0500 Body height 177.8 cm Darlin Dione Other [facility] Other 08-22-2022 09:55-0500 Body mass index (BMI) [Ratio] 50.87 kg/m2 Darlin Dione Other [facility] Other 08-22-2022 09:55-0500 Body temperature 98.3 [degF] Darlin Dione Other [facility] Other 08-22-2022 09:55-0500 Body weight 160.85 kg Darlin Dione Other [facility] Other 08-22-2022 09:55-0500 Diastolic blood pressure 86 mm[Hg] Darlin Dione Other [facility] Other 08-22-2022 09:55-0500 Respiratory rate 18 /min Darlin Dione Other [facility] Other 08-22-2022 09:55-0500 SaO2% (BldA) [Mass fraction] 97 % Darlin Dione Other [facility] Other 08-22-2022 09:55-0500 Systolic blood pressure 124 mm[Hg] Darlin Dione Other [facility] Other 03-20-2021 11:30-0400 Body height 177.8 cm Darlin Dione Other [facility] Other 03-20-2021 11:30-0400 Body mass index (BMI) [Ratio] 54.52 kg/m2 Darlin Dione Other [facility] Other 03-20-2021 11:30-0400 Body temperature 96.6 [degF] Darlin Parham Other [facility] Other 03-20-2021 11:30-0400 Body weight 172.37 kg Darlin Parham Other [facility] Other 03-20-2021 11:30-0400 SaO2% (BldA) [Mass fraction] 96 % Darlin Parham Other [facility] Other Encounters Encounter Date Encounter Type Care Provider Facility Start: 08-22-2023 Documentation procedure Arely Ryan Hanson [facility] Start: 08-21-2023 Documentation procedure Arely Ryan Hanson [facility] Start: 08-20-2023 End: 08-21-2023 Orders Only Melanie Nunez [employer] EQUIPMENT TECHNICIAN Work Phone: [facility] Start: 08-19-2023 End: 08-20-2023 Emergency department patient visit [facility] Start: 08-19-2023 End: 08-20-2023 Emergency department patient visit [facility] Start: 08-16-2023 End: 08-16-2023 ambulatory [facility] Start: 08-16-2023 End: 08-16-2023 Office outpatient visit 25 minutes [facility] DO Work Phone: [facility] Comment on above: Type 2 diabetes lola itus without complication, without long- term current use of insulin ([facility]) (Primary Dx); Class 3 severe obesity due to excess calories without serious comorbidity with body mass index (BMI) of 45.0 to 49.9 in adult ([facility]); Essential hypertension; Gastroesophageal reflux disease with esophagitis, unspecified whether hemorrhage Start: 08-15-2023 End: 08-17-2023 ambulatory P[facility] Infusion Chair 2 Violette Mckeon [facility] Comment on above: 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) (Primary Dx) Start: 08-14-2023 End: 08-14-2023 ambulatory Pfo Infusion Chair 5 Violette Mckeon [facility] Comment on above: 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) (Primary Dx) Start: 08-13-2023 End: 08-14-2023 ambulatory [facility] Start: 08-09-2023 Orders Only Timothy Lan MD Work Phone: [facility] Comment on above: 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) (Primary Dx) 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) (Primary Dx); Pleural effusion Start: 08-03-2023 End: 08-04-2023 [facility] Start: 08-01-2023 Orders Only Leesa Mckeon [facility] Start: 07-27-2023 End: 07-28-2023 [facility] Start: 07-26-2023 Orders Only Jean javier DO Work Phone: [facility] Comment on above: Type 2 diabetes lola itus without complication, without long- term current use of insulin ([facility]) (Primary Dx) Start: 07-25-2023 End: 07-26-2023 ambulatory Cara Bravo MD Work Phone: Hematology/Oncology Comment on above: 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) Start: 07-25-2023 End: 07-25-2023 Patient encounter procedure Cara Bravo MD Work Phone: [facility] Start: 07-19-2023 End: 08-17-2023 ambulatory [facility] Start: 07-18-2023 End: 07-19-2023 [facility] Comment on above: 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 ([facility]) (Primary Dx) Arrived Start: 07-17-2023 End: 07-17-2023 ambulatory MADDI FITCH [facility] Start: 07-17-2023 End: 07-17-2023 Office outpatient visit 25 minutes Maddi Fitch MD Work Phone: [facility] Comment on above: Obstructive sleep ap shelia (Primary Dx); S/P tonsillectomy; 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 ([facility]); Shift work sleep disorder Start: 07-14-2023 End: 07-15-2023 ambulatory TIMOTHY LAN [facility] Start: 07-13-2023 End: 07-13-2023 Office outpatient new 60 minutes Timothy Lan MD Work Phone: Violette Mckeon [facility] - Medical Oncology Comment on above: 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 ([facility]) Start: 07-13-2023 End: 07-16-2023 [facility] Comment on above: 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 ([facility]) (Primary Dx) Start: 07-12-2023 End: 07-12-2023 ambulatory [facility] Start: 07-12-2023 End: 07-12-2023 Office outpatient visit 15 minutes [facility] [employer]ANCE [employer] TECHNICIAN Work Phone: [facility] Comment on above: 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 ([facility]) (Primary Dx); Tympanic membrane perforation, left Start: 06-25-2023 End: 06-25-2023 ambulatory JEAN Waters [facility] Start: 05-18-2023 End: 05-18-2023 ambulatory Jennifer Cisneros Other [facility] Other Start: 05-18-2023 Office outpatient vi sit 15 minutes Jennifer Cisneros [facility] Start: 09-01-2022 End: 09-02-2022 ambulatory MELANIE NUNEZ Facility:[facility] Start: 08-22-2022 End: 08-22-2022 ambulatory Darlin Parham Other [facility] Other Start: 08-22-2022 Office outpatient vi sit 15 minutes Darlin Parham [facility] Start: 06-18-2021 End: 06-19-[address] JAZMIN SOLITARIO Facility:[facility] Start: 03-20-2021 (URG) Urgent Care Visit Darlin gallagher [facility] Start: 09-29-2018 End: 09-29-2018 Patient encounter procedure Chelsey Starr Facility:[facility] Procedures Date Procedure Procedure Detail Performing Clinician Start: 08-16-2023 Hemoglobin glycosyla marjorie a1c Jean Gillette DO Work Phone: Start: 07-18-2023 Chemotherapy Chemotherapy JEAN CHOPRA Start: 07-12-2023 Adult depression scr eening assessment Melaniekeagan Nunez [employer] Work Phone: Start: 02-16-2023 Diabetic retinal eye exam Melanie Nunez [employer] Work Phone: Start: 05-31-2022 Microalbumin [Mass/v olume] in Urine by Test strip Melanie Nunez [employer] Work Phone: History of tonsillectomy S/P tonsillectom y Maddi Fitch MD Work Phone: Plan of Treatment Date Care Activity Detail Author Start: 08-18-2024 Adult BMI Screening Adult BMI Screen ing [facility] Start: 08-18-2024 Tobacco Screening Tobacco Screening [facility] Start: 08-15-2024 Adult BMI Screening Adult BMI Screen ing [facility] Start: 08-15-2024 Tobacco Screening Tobacco Screening [facility] Start: 08-14-2024 Adult BMI Screening Adult BMI Screen ing [facility] Start: 08-14-2024 Tobacco Screening Tobacco Screening [facility] Start: 08-13-2024 Adult BMI Screening Adult BMI Screen ing [facility] Start: 08-13-2024 Tobacco Screening Tobacco Screening [facility] Start: 08-01-2024 Adult BMI Screening Adult BMI Screen ing [facility] Start: 07-25-2024 Adult BMI Screening Adult BMI Screen ing [facility] Start: 07-17-2024 Adult BMI Screening Adult BMI Screen ing [facility] Start: 07-17-2024 Tobacco Screening Tobacco Screening [facility] Start: 07-13-2024 Adult BMI Screening Adult BMI Screen ing [facility] Start: 07-12-2024 Adult BMI Screening Adult BMI Screen ing [facility] Start: 07-12-2024 Depression Screening Depression Scre ening [facility] Start: 07-12-2024 Tobacco Screening Tobacco Screening [facility] Start: 02-17-2024 Glaucoma screening Diabetic Op hthalmology Exam [facility] Start: 09-14-2023 End: 09-14-2023 ambulatory 09/14/2023 8:00 AM EDT Infusion Violette L Mike [facility] [address] [place] [phone] Violette L Hanson [facility] Start: 09-13-2023 End: 09-13-2023 ambulatory 09/13/2023 8:00 AM EDT Infusion Violette Mckeon [facility] [address] [place] [phone] Violettesherif Mckeon [facility] Start: 09-12-2023 End: 09-12-2023 Patient encounter procedure 09/12/2023 8:00 AM EDT Appointment [facility] Lab [address] [place] [address] [facility] Start: 09-06-2023 End: 09-06-2023 Patient encounter procedure 09/06/2023 3:15 PM EDT Office Visit Violette Ryan Mike [facility] [address] [place] [phone] Timothy Lan MD [address] [place] [address] [address] [place], [place] [id number] Violette L Mike [facility] Start: 09-03-2023 End: 09-03-2023 Patient encounter procedure 09/03/2023 8:00 AM EDT Appointment [facility] [address] [facility] [place] [address] [facility] Start: 08-27-2023 End: 08-27-2023 Patient encounter procedure 08/27/2023 8:00 AM EDT Appointment [facility] [address] [place] [address] [facility] Start: 08-20-2023 End: 08-20-2023 Patient encounter procedure 08/20/2023 8:00 AM EST Appointment [facility] [address] [place] [address] [facility] Start: 08-16-2023 End: 08-16-2023 Patient encounter procedure 08/16/2023 1:30 PM EST Office Visit [facility] [address] [place] [address] Jean Gillette, [address], [facility] [place] [address] [facility] Start: 08-15-2023 End: 08-15-2023 ambulatory 08/15/2023 2:00 PM EST Infusion Violette Mckeon [facility] [address] [place] [phone] Violette Mckeon [facility] Start: 08-14-2023 End: 08-14-2023 Patient encounter procedure 08/14/2023 9:00 AM EST Office Visit [facility] [address] [place] [phone] Maddi Fitch MD [address], [facility] [address] [place] [address] [facility] Start: 08-14-2023 End: 08-14-2023 ambulatory 08/14/2023 8:00 AM EST Infusion Violette Ryan Hanson [facility] [address] [place] [phone] Violettesherif Velásquezn [facility] - [facility] Oncology Start: 08-13-2023 End: 08-13-2023 Patient encounter procedure [facility] - Ultrasound Start: 08-09-2023 End: 08-09-2024 Guidance for thoracentesis of Chest IR thoracentesis with guidance right Imaging Routine 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 ([facility]) Pleural effusion Expected: 08/09/2023, Expires: 08/09/2024 [facility] Work Phone: Comment on above: Expected: 08/09/2023 , Expires: 08/09/2024 Start: 08-03-2023 Subsequent hospital visit by physician 08/03/2023 10:00 AM EST Hospital Encounter [facility] Violette Mckeon [facility] [address] [place] [phone] [facility] Violettesherif Mckeon [facility] Start: 07-27-2023 Subsequent hospital visit by physician 07/27/2023 8:30 AM EST Hospital Encounter [facility] Violette Mckeon [facility] [address] [place] [phone] Canceled (Other) [facility] Violette L Hanson [facility] Comment on above: Canceled (Other) Start: 07-18-2023 End: 07-18-2023 ambulatory 07/18/2023 3:00 PM EST Education Violette L Mike [facility] [address] [place] [phone] Violette Shelby Mike [facility] Start: 07-17-2023 End: 07-17-2023 Patient encounter procedure 07/17/2023 9:30 AM EST Office Visit [facility] [address] [place] [address] Maddi Fitch MD [address], [address] [place] [address] [facility] Start: 07-13-2023 End: 07-13-2024 PT Skull base to mid-thigh PET CT skull to thigh Imaging Routine 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 ([facility]) Expected: 07/13/2023, Expires: 07/13/2024 [facility] Comment on above: Expected: 07/13/2023 , Expires: 07/13/2024 Start: 06-18-2023 Depression Assessment Depression Ass essment [facility] Start: 05-31-2023 Urine screening for protein Urine Microalbumin [facility] Start: 02-16-2023 Influenza vaccination Influenza Vacc ine (#1) [facility] Start: 02-22-2008 DTaP,Tdap and Td Vaccines (1 - Tdap) DTaP,Tdap and Td Vaccines (1 - Tdap) [facility] Start: 02-22-2008 Shingrix Vaccine (1 of 2) Shingrix Vaccine (1 of 2) [facility] Start: 02-22-2008 Urine microalbumin profile DTaP,Tdap,Td Vaccine (1 - Tdap) [facility] Start: 2007 Adult BMI Follow Up Plan Adult BMI Follow Up Plan [facility] Start: 2007 Diabetic foot examination Diabetic Foot Exam [facility] Start: 2007 Hepatitis C screening Hepatitis C Sc reening [facility] Start: 2007 HIV screening HIV Screening [facility] Start: 1995 Pneumococcal vaccination Pneum ococcal Vaccine (1 of 2 - PCV) [facility] Start: 1994 Covid-19 Vaccine (#1) Covid-19 Vacci ne (#1) [facility] Start: 1989 Hepatitis B Vaccine (1 of 3 - 3-dose series) Hepatitis B Vaccine (1 of 3 - 3-dose series) [facility] End: 07-13-2024 CBC W Auto Differential panel - Blood CBC auto differential Lab Routine 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) 1 Occurrences starting 07/13/2023 until 07/13/2024 [employer] Work Phone: Comment on above: 1 Occurrences starti ng 07/13/2023 until 07/13/2024 End: 07-18-2024 CBC W Auto Differential panel - Blood CBC auto differential Lab STAT 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) Per Treatment Plan for 50 Occurrences starting 07/18/2023 until 07/18/2024 [employer] Work Phone: Comment on above: Per Treatment Plan f or 50 Occurrences starting 07/18/2023 until 07/18/2024 End: 07-13-2024 Comprehensive metabolic 2000 panel - Serum or Plasma Comprehensive metabolic panel Lab Routine 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) 1 Occurrences starting 07/13/2023 until 07/13/2024 [employer] Comment on above: 1 Occurrences starti ng 07/13/2023 until 07/13/2024 End: 07-18-2024 Comprehensive metabolic 2000 panel - Serum or Plasma Comprehensive metabolic panel Lab STAT 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) Per Treatment Plan for 50 Occurrences starting 07/18/2023 until 07/18/2024 [employer] Comment on above: Per Treatment Plan f or 50 Occurrences starting 07/18/2023 until 07/18/2024 End: 08-09-2024 Cytology Cytology Pathology and Cytology Routine 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) Pleural effusion 1 Occurrences starting 08/09/2023 until 08/09/2024 [employer] Comment on above: 1 Occurrences starti ng 08/09/2023 until 08/09/2024 End: 07-13-2024 Hepatitis B core antibody, total Hepatitis B core antibody, total Lab Routine 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) 1 Occurrences starting 07/13/2023 until 07/13/2024 [employer] Comment on above: 1 Occurrences starti ng 07/13/2023 until 07/13/2024 End: 07-13-2024 Hepatitis B Surface Antibody Quantitation Hepatitis B Surface Antibody Quantitation Lab Routine 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) 1 Occurrences starting 07/13/2023 until 07/13/2024 [employer] Comment on above: 1 Occurrences starti ng 07/13/2023 until 07/13/2024 End: 07-13-2024 Hepatitis B surface antigen Hepatitis B surface antigen Lab Routine 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) 1 Occurrences starting 07/13/2023 until 07/13/2024 [employer] Comment on above: 1 Occurrences starti ng 07/13/2023 until 07/13/2024 End: 07-13-2024 LD LDH total LD LDH total Lab Routine 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) 1 Occurrences starting 07/13/2023 until 07/13/2024 [employer] Comment on above: 1 Occurrences starti ng 07/13/2023 until 07/13/2024 End: 07-13-2024 Unlisted Genetic Test Unlisted Genetic Test Lab Routine 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) 1 Occurrences starting 07/13/2023 until 07/13/2024 [employer] Phone: Comment on above: 1 Occurrences starti ng 07/13/2023 until 07/13/2024 End: 07-13-2024 Unlisted Lab Test Unlisted Lab Test Lab Routine 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) 1 Occurrences starting 07/13/2023 until 07/13/2024 [employer] Comment on above: 1 Occurrences starti ng 07/13/2023 until 07/13/2024 End: 07-13-2024 Urate [Mass/volume] in Serum or Plasma Uric acid Lab Routine 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) 1 Occurrences starting 07/13/2023 until 07/13/2024 [employer] Comment on above: 1 Occurrences starti ng 07/13/2023 until 07/13/2024 End: 07-18-2024 Urate [Mass/volume] in Serum or Plasma Uric acid Lab STAT 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) Per Treatment Plan for 50 Occurrences starting 07/18/2023 until 07/18/2024 [facility] [employer] Comment on above: Per Treatment Plan f or 50 Occurrences starting 07/18/2023 until 07/18/2024 Payers Date Payer Category Payer Private Health Insurance [id number] 2018 Self-pay 2018 Unknown [id number] 1989 Unknown [id number] 2.16.84 [id number] 1989 Unknown [id number] 2.16.84 0.1.321297.3.579.2.593 1989 Unknown [id number] 2.16. 840.1.648523.3.579.2.175 1989 Unknown [id number] 2.16.8 40.1.484239.3.579.2.1286 1989 Unknown [id number] 2.16.8 40.1.106923.3.579.2.1286 1989 Unknown [id number] 2.16.8 40.1.303513.3.579.2.1286 1989 Unknown [id number] 2.16.8 40.1.071785.3.579.2.1286 1989 Unknown [id number] 2.16.8 40.1.187440.3.579.2.1286 1989 Unknown [id number] 2.16.8 40.1.868022.3.579.2.1286 1989 Unknown [id number] 2.16.8 40.1.814779.3.579.2.128 1989 Unknown [id number] 2.16.8 40.1.956007.3.579.2.6 1989 Unknown [id number] 2.16.8 40.1.770419.3.579.2.1286 1989 Unknown [id number] 2.16.8 40.1.961313.3.579.2.1286 1989 Unknown [id number] 2.16.8 40.1.791597.3.579.2.6 1989 Unknown [id number] 2.16.8 40.1.665055.3.579.2.6 1989 Unknown [id number] 2.16.8 40.1.613571.3.579.2.1285 1989 Unknown [id number] 2.16.8 40.1.615870.3.579.2.1286 1989 Unknown [id number] 2.16.8 40.1.564117.3.579.2.1285 1989 Unknown [id number] 2.16.8 40.1.928388.3.579.2.6 1989 Unknown [id number] 2.16.8 40.1.149959.3.579.2.1286 1959 Unknown [id number] 1959 Unknown [id number] 2.16.8 40.1.307491.19 Unknown [id number] 2.16.84 0.1.024107.3.579.2.531 Social History Date Type Detail Facility Unknown if ever smoked [facility] Other Start: 05-31-2022 End: 08-15-2023 Sex Assigned At [facility] Other Start: 05-31-2022 Tobacco smoking status ARIS Never smoked tobacco [facility] Start: 05-31-2022 Tobacco use and exposure Smokeless tobacco non-user [facility] Start: 07-12-2023 Alcohol intake Current drinker of alcohol (finding) [facility] Start: 05-31-2022 End: 08-15-2023 History of Social function [facility] Do you belong to any clubs or organizations such as rastafarian groups, unions, fraternal or athletic groups, or school groups? No [facility] Are you now , , , , never or living with a partner? [facility] How often to you hav e a drink containing alcohol? Never [facility] How many standard dr inks containing alcohol do you have on a typical day? Patient does not drink [facility] Do you feel stress - tense, restless, nervous, or anxious, or unable to sleep at night because your mind is troubled all the time - these days [OSQ] Not at all [facility] Start: 1989 Sex Assigned At Not on file [facility] Start: 07-17-2023 End: 08-19-2023 Alcohol intake Ex-drinker (finding) [facility] [employer] Tobacco smoking stat [facility] Tobacco smoking consumption unknown [facility] Start: 1989 Sex Assigned At Male [facility] Start: 07-23-2023 Gender identity Identifies as male gender (finding) [facility] Clinical Notes 03-20-2021 to 08-22-2023 Arely Guerra RN - 08/22/2023 8:19 AM Merry Guerra RN - 08/21/2023 3:46 PM Dany Nunez APRN-KT - 08/20/2023 10:40 AM Sulaiman Gillette DO - 08/16/2023 1:30 PM EST Note Date & Type Note Facility 08-22-2023 History of Present illness Narrative Patient called in to report that he started the taper dose of prednisone he was prescribed from ED for RSV. States he took it yesterday and after a few hours noticed that he had broke out in hives. He asked if he should continue the medication or not? Instructed to call PCP to see what their recommendation was since Dr. Lan is not managing medications for the RSV. Patient verbalized understanding and will call with any additional questions. documented in this encounter [facility] 08-21-2023 History of Present illness Narrative Images from the original note were not included. Call to patient's home, spoke with his . Inquired to see if he has been using tylenol to reduce fever at all and he has not been. Instructed to continue to monitor temps and may use tylenol as directed on bottle. If fever worsens or he has any other symptoms that are not manageable at home he should proceed to ED for evaluation. Verbalized understanding. Ashley Melvin RN [facility] Onc Nurses Patient Izabella called to report patient was in ED over weekend and tested positive for RSV; he also had infusion last week and is now running temps of 101.8-101.9; she is asking if she should take him back to the ED and/or if this is related to chemo documented in this encounter [facility] 08-20-2023 History of Present illness Narrative Recent ER visit for RSV ANN MARIE Barrios 08/20/23 1040 documented in this encounter [facility] 08-16-2023 History of Present illness Narrative Subjective Patient ID: Cece Golden is a 33 y.o. male. Cece presents today for diabetic recheck. Since his last visit he was diagnosed with mantle cell lymphoma. Is seeing the oncologist. He is just started therapy which includes dexamethasone. His blood sugars have been fairly good despite the steroid. He tries to check about once a day. He is taking Ozempic 0.25 mg and just finished that in his next dose will be 0.5 mg weekly. Diabetes He presents for his follow-up diabetic visit. He has type 2 diabetes mellitus. Current diabetic treatment includes oral agent (dual therapy). He is compliant with treatment all of the time. He is following a diabetic diet. He has not had a previous visit with a dietitian. His overall blood glucose range is 140-180 mg/dl. The following portions of the patient's history were reviewed and updated as appropriate: allergies, current medications, past family history, past medical history, past social history, past surgical history, problem list, and medication reconciliation was completed including current medication and post discharge medication. Review of Systems Constitutional: Negative. HENT: Negative. Eyes: Negative. Respiratory: Positive for cough and shortness of breath. Has fluid on his right lung Cardiovascular: Negative. Gastrointestinal: Negative. Genitourinary: Negative. Musculoskeletal: Negative. Allergic/Immunologic: Negative. Neurological: Negative. Hematological: Negative. Psychiatric/Behavioral: Negative. Objective Physical Exam Constitutional: General: He is not in acute distress. Appearance: He is morbidly obese. He is not ill-appearing. HENT: Head: Normocephalic and atraumatic. Cardiovascular: Rate and Rhythm: Normal rate and regular rhythm. Pulses: Normal pulses. Heart sounds: Normal heart sounds. No murmur heard. Pulmonary: Effort: Pulmonary effort is normal. No respiratory distress. Breath sounds: No stridor. Examination of the right-lower field reveals decreased breath sounds. Decreased breath sounds present. No wheezing, rhonchi or rales. Musculoskeletal: Cervical back: Neck supple. Neurological: General: No focal deficit present. Mental Status: He is alert and oriented to person, place, and time. Psychiatric: Attention and Perception: Attention normal. Mood and Affect: Mood and affect normal. Speech: Speech normal. Behavior: Behavior normal. Behavior is cooperative. Thought Content: Thought content normal. Cognition and Memory: Cognition normal. Judgment: Judgment normal. Assessment/Plan Cece was seen today for diabetes. Diagnoses and all orders for this visit: Type 2 diabetes mellitus without complication, without long-term current use of insulin ([facility]) - POCT Hemoglobin A1c His A1c is pretty good at 6.6%. He has just recently started chemotherapy which includes steroids. His A1c is likely going to go up. Should increase his Ozempic to 0.5 mg weekly. Take that for at least a month. Check his fasting blood sugars when he 1st gets up. They should be less than 150 if not we can continue to titrate up on the Ozempic. Can call with readings and we can make an adjustment over the phone so we can stay on top of it. Class 3 severe obesity due to excess calories without serious comorbidity with body mass index (BMI) of 45.0 to 49.9 in adult ([facility]) Hopefully adding Ozempic and increasing the dose will help with his weight. Diet exercise and weight loss discussed. Essential hypertension Blood pressure at goal. Continue current regimen Gastroesophageal reflux disease with esophagitis, unspecified whether hemorrhage - famotidine (PEPCID) 20 mg tablet; Take 1 tablet (20 mg total) by mouth in the morning and 1 tablet (20 mg total) before bedtime. Stable. Renew famotidine. documented in this encounter [facility] 08-15-2023 History of Present illness Narrative Pt here for bendeka as scheduled. No new changes from yesterday. Just reports side effects from steroids. Mild nausea relieved with anti emetics. PIV initiated to RFA. Brisk blood return noted. Flushes with ease. NS started at KVO. Premedicated per aug. Bendeka infused over 10 minutes. Pt tolerated well. documented in this encounter [facility] 08-14-2023 History of Present illness Narrative The patient is here for cycle 1 of Rituxan/Bendeka is at bedside Patient education given regarding discharge information. Questions answered by this auto service writer. Chemo consent form signed PIV started in the L hand with brisk blood return noted Normal Saline started at KVO for mainline Premeds given IVPB and IVP Rituxan started at 30ml/hr for 30 min Patient tolerated well Infusion titrated up to 60ml/hr for 30min Approximately 10min in, the patient reported feeling warm throughout his body, flushed and bone & joint pain. Rituxan stopped, the patient was started on a 500ml bolus of normal saline, 25mg of benadryl given along with 125mcg of solu-medrol After 30 min the patient returned to baseline. Dr Lan made aware of side effect and recommends restarting the Rituxan Rituxan restarted at 30ml for 30 min. Patient responded well. The medication was then titrated up by 30ml every 30 min. The patient responded well to the re-challenge of Rituxan. Bendeka then given over 10 min Patient tolerated well PIV removed and patient discharged in stable condition. documented in this encounter [facility] 08-09-2023 History of Present illness Narrative Images from the original note were not included. MD Leesa Guzmán RN After chemo, I will need CBC, CMP uric acid the Sunday after his chemo to monitor tumor lysis. Then weekly x2. F/u before C2. MD Leesa Guzmán RN Sounds great! Thanks! Previous Messages ----- Message ----- From: Leesa Burris RN Sent: 08/09/2023 2:00 PM EST To: Timothy Lan MD Subject: RE: pet ct results 1,Thoracentesis is scheduled for Sunday 3. Chemo is scheduled Sunday at 08:00 am 2. He will take dexamethasone Sunday and Sunday prior to Chemo 3, He started allopurinol yesterday ----- Message ----- From: Timothy Lan MD Sent: 08/09/2023 12:16 PM EST To: Leesa Burris RN Subject: RE: pet ct results I reviewed the results with him over the phone. 1. Right-sided thoracentesis as soon as possible because he has large pleural effusion that will fax his breathing if he has allergic reaction to Rituxan. 2. Start Decadron 20 mg daily 2 days before chemo for 2 days only. To avoid reaction to Rituxan. 3. Start allopurinol now. 4. Weekly CBC, CMP and uric acid. He can start chemotherapy any time after thoracentesis done. Please let me know the plan so I can review 1 more time before we start. He is high-risk for infusional reaction. ----- Message ----- From: Leesa Burris RN Sent: 08/08/2023 12:53 PM EST To: Timothy Lan MD Subject: RE: pet ct results Yes, chemo is approved. ----- Message ----- From: Timothy Lan MD Sent: 08/08/2023 12:45 PM EST To: Leesa Burris RN Subject: RE: pet ct results Is he ready to start? Chemo approved? ----- Message ----- From: Leesa Burris RN Sent: 08/08/2023 10:47 AM EST To: Timothy Lan MD Subject: pet ct results Patient called yesterday wanting pet ct results. Would you be willing to call him with results? He is very anxious to get treatment started. documented in this encounter [facility] 08-09-2023 History of Present illness Narrative MD Leesa Guzmán RN I reviewed the results with him over the phone. 1. Right-sided thoracentesis as soon as possible because he has large pleural effusion that will fax his breathing if he has allergic reaction to Rituxan. 2. Start Decadron 20 mg daily 2 days before chemo for 2 days only. To avoid reaction to Rituxan. 3. Start allopurinol now. 4. Weekly CBC, CMP and uric acid. He can start chemotherapy any time after thoracentesis done. Please let me know the plan so I can review 1 more time before we start. He is high-risk for infusional reaction. documented in this encounter [facility] 08-01-2023 History of Present illness Narrative When I called him he mentioned his leg swelling again. He said they swell on and off and get better when he keeps them elevated. No redness or pain. He does get short of breath with exertion but not at rest. He wanted to make sure there were no concerns for blood clots. Message sent to Dr. Lan. ===View-only below this line=== ----- Message ----- From: Timothy Lan MD Sent: 07/31/2023 6:10 PM EST To: Leesa Burris RN Subject: RE: start treatment Yes, he needs allopurinol 300 mg daily. Start now. Let's wait for pet, I will decide egd and colonoscopy/marrow later. ----- Message ----- From: Leesa Burris RN Sent: 07/31/2023 4:43 PM EST To: Timothy Lan MD Subject: start treatment His chemo is approved and pet ct is scheduled this Sunday. Can we schedule his treatment to start next week or do you need to see pet ct results first? I noticed your noted said He may need upper endoscopy to rule out gastric involvement and bone marrow biopsy? Does he need allopurinol? documented in this encounter [facility] 07-26-2023 Miscellaneous Notes RESCHEDULED PET CT TO 08/03/23 10 AM [facility] [place] documented in this encounter [facility] 07-26-2023 Telephone encounter Note RESCHEDULED PET CT TO 08/03/23 10 AM [facility] [place] [facility] 07-26-2023 History of Present illness Narrative FMLA papers faxed. documented in this encounter [facility] 07-25-2023 Note HNO ID: [id number] Author: CARA BRAVO MD Service: ? Author Type: Physician Type: Progress Notes Filed: 07/25/2023 11:31 Note Text: PATIENT NAME: [facility] NO.: [id number] ATTENDING PHYSICIAN: Cara Bravo MD DATE OF SERVICE: July 25, [address] Timothy Lan for an opinion regarding mantle cell lymphoma. My final recommendations will be communicated back to the requesting physician by way of shared Medical record or letter to requesting physician via [place] mail. CHIEF COMPLAINT: Mantle cell lymphoma HPI: This is a 33 year old male presents for further evaluation and management of mantle cell lymphoma He developed raspy voice about a year ago. Persistent throat discomfort for 6 months and lately difficulty swallowing. He was recommended tonsillectomy for his sleep apnea and he underwent bilateral tonsillectomy 06/25/2023. Also noticed L neck enlarged node Mar-Apr 2023 Bilateral tonsillectomy June 25, 2023 A Right tonsil, excision: - Mantle cell lymphoma. B. Left tonsil, excision: - Mantle cell lymphoma. COMMENT: Tonsil, right and left, flow cytometric immunophenotyping: Monotypic kappa, CD5-positive B-cell population, coexpressing CD19, CD20 and CD22. They are negative for CD10 and CD200. - p53 immunostain was performed on block A1 with appropriate control and shows wild-type expression. The original diagnosis remains unchanged. [facility] HEMME PATH REVIW: Tonsils, right and left, excision ([id number]; 06/25/2023): - Mantle cell lymphoma - Immunohistochemical stains received from the referring institution are reviewed at [facility]. The neoplastic cells are positive for CD5, CD20, CD79a, cyclin D1, BCL2, and Pax5. Approximately 50% of these cells stain for Ki67. The stain for MUM1 is equivocal, approximately 40% of the cells are positive with variable intensities. The neoplastic cells are negative for CD3, CD10, CD21, CD23, BCL6, and p53 (less than 1%). - In conclusion, the findings in this case are diagnostic of mantle cell lymphoma. While the morphology of the neoplastic cells is not suggestive of a blastoid variant, the mitotic activity of this tumor is relatively high. Better since tonsillectomy Breathing and swallowing much improved His sleep apnea has also improved and scheduled for repeat sleep study Seen by Dr. Timothy Lan at [facility] Jul 14, 2023 Scheduled for a PET Jul 27, 2023 He reports a recent onset upper abdominal discomfort. He has been taking Pepcid but not helping much. He could not go to work couple days due to pain. He takes Tylenol. He also noticed night sweats starting around May 2023. Not daily but a few days a week. Denies any nausea or vomiting. Denies any bleeding from mouth gums urine or stool. Denies dark black stools. He has diabetes and sleep apnea REVIEW OF SYSTEMS GENERAL: + 60 lbs weight loss over a year on Ozempic. No malaise or fevers. + night sweats. No polyuria or polydipsia HEENT: Negative for headaches, No changes in vision, no nose bleeds RESPIRATORY: Chronic cough - possible reflux - , no wheezing and shortness of breath CARDIOVASCULAR: Negative for chest pain, + leg swelling x 2 weeks GI: + Upper abdominal discomfort, no blood in stools or black stools. No diarrhea, constipation, nausea, vomiting. : Negative for dysuria, frequency and incontinence MUSCULOSKELETAL: Negative for joint pain, + joint stiffness. Denies back pain SKIN: Negative for lesions, rash, and itching. HEMATOLOGY/LYMPHOLOGY Negative for prolonged bleeding, + bruising easily NEURO: Negative for numbness - tingling of hands/feet. No weakness. Current Outpatient Medications Medication Sig albuterol HFA (PROVENTIL HFA, VENTOLIN HFA) 90 mcg/actuation inhaler Inhale 2 Puffs as instructed every 6 hours as needed. famotidine (PEPCID) 20 mg tablet Take 20 mg by mouth. losartan (COZAAR) 100 mg tablet Take 1 tablet by mouth once daily. ondansetron (ZOFRAN) 8 mg tablet Take 1 tablet by mouth twice daily as needed for severe nausea or vomiting. prochlorperazine (COMPAZINE) 10 mg tablet Take 1 tablet by mouth every 6 hours as needed for mild nausea or vomiting. metFORMIN (GLUCOPHAGE) 500 mg tablet Take 500 mg by mouth daily with breakfast. ertugliflozin (STEGLATRO) 15 mg tablet Take 15 mg by mouth once daily. acetaminophen (TYLENOL) 325 mg tablet Take 650 mg by mouth every 6 hours as needed. No current facility-administered medications for this visit. ALLERGIES Allergen Reactions Lisinopril Cough Past Medical History: Diabetes mellitus diagnosed 2017 - No Insulin Hyperlipidemia Hypertension Severe obstructive sleep apnea - better since tonsillectomy Family History Mother - Depression Father - Survivor is a Prostate cancer, Colon cancer, DM 3 Sisters are OK 2 Aunts with leukemia Social History From [facility], [place] away with 2 children, 4 and 18 months Never smoker (more content not included)... [facility] 07-25-2023 Instructions Cara Bravo MD - 07/25/2023 10:15 AM EST Please schedule a Virtual Visit with me Schedule OTHER: In 8-10 weeks VIRTUAL EST PATIENT [[id number]] $49 documented in this encounter [facility] 07-25-2023 History of Present illness Narrative PATIENT NAME: Cece Golden [facility] NO.: [id number] ATTENDING PHYSICIAN: Cara Bravo MD DATE OF SERVICE: July 25, [address] Timothy Lan for an opinion regarding mantle cell lymphoma. My final recommendations will be communicated back to the requesting physician by way of shared Medical record or letter to requesting physician via [place] mail. CHIEF COMPLAINT: Mantle cell lymphoma HPI: This is a 33 year old male presents for further evaluation and management of mantle cell lymphoma He developed raspy voice about a year ago. Persistent throat discomfort for 6 months and lately difficulty swallowing. He was recommended tonsillectomy for his sleep apnea and he underwent bilateral tonsillectomy 06/25/2023. Also noticed L neck enlarged node Mar-Apr 2023 Bilateral tonsillectomy June 25, 2023 A Right tonsil, excision: - Mantle cell lymphoma. B. Left tonsil, excision: - Mantle cell lymphoma. COMMENT: Tonsil, right and left, flow cytometric immunophenotyping: Monotypic kappa, CD5-positive B-cell population, coexpressing CD19, CD20 and CD22. They are negative for CD10 and CD200. - p53 immunostain was performed on block A1 with appropriate control and shows wild-type expression. The original diagnosis remains unchanged. [facility] HEMME PATH REVIW: Tonsils, right and left, excision ([id number]; 06/25/2023): - Mantle cell lymphoma - Immunohistochemical stains received from the referring institution are reviewed at [facility]. The neoplastic cells are positive for CD5, CD20, CD79a, cyclin D1, BCL2, and Pax5. Approximately 50% of these cells stain for Ki67. The stain for MUM1 is equivocal, approximately 40% of the cells are positive with variable intensities. The neoplastic cells are negative for CD3, CD10, CD21, CD23, BCL6, and p53 (less than 1%). - In conclusion, the findings in this case are diagnostic of mantle cell lymphoma. While the morphology of the neoplastic cells is not suggestive of a blastoid variant, the mitotic activity of this tumor is relatively high. Better since tonsillectomy Breathing and swallowing much improved His sleep apnea has also improved and scheduled for repeat sleep study Seen by Dr. Timothy Lan at [facility] Jul 14, 2023 Scheduled for a PET Jul 27, 2023 He reports a recent onset upper abdominal discomfort. He has been taking Pepcid but not helping much. He could not go to work couple days due to pain. He takes Tylenol. He also noticed night sweats starting around May 2023. Not daily but a few days a week. Denies any nausea or vomiting. Denies any bleeding from mouth gums urine or stool. Denies dark black stools. He has diabetes and sleep apnea REVIEW OF SYSTEMS GENERAL: + 60 lbs weight loss over a year on Ozempic. No malaise or fevers. + night sweats. No polyuria or polydipsia HEENT: Negative for headaches, No changes in vision, no nose bleeds RESPIRATORY: Chronic cough - possible reflux - , no wheezing and shortness of breath CARDIOVASCULAR: Negative for chest pain, + leg swelling x 2 weeks GI: + Upper abdominal discomfort, no blood in stools or black stools. No diarrhea, constipation, nausea, vomiting. : Negative for dysuria, frequency and incontinence MUSCULOSKELETAL: Negative for joint pain, + joint stiffness. Denies back pain SKIN: Negative for lesions, rash, and itching. HEMATOLOGY/LYMPHOLOGY Negative for prolonged bleeding, + bruising easily NEURO: Negative for numbness - tingling of hands/feet. No weakness. Current Outpatient Medications Medication Sig albuterol HFA (PROVENTIL HFA, VENTOLIN HFA) 90 mcg/actuation inhaler Inhale 2 Puffs as instructed every 6 hours as needed. famotidine (PEPCID) 20 mg tablet Take 20 mg by mouth. losartan (COZAAR) 100 mg tablet Take 1 tablet by mouth once daily. ondansetron (ZOFRAN) 8 mg tablet Take 1 tablet by mouth twice daily as needed for severe nausea or vomiting. prochlorperazine (COMPAZINE) 10 mg tablet Take 1 tablet by mouth every 6 hours as needed for mild nausea or vomiting. metFORMIN (GLUCOPHAGE) 500 mg tablet Take 500 mg by mouth daily with breakfast. ertugliflozin (STEGLATRO) 15 mg tablet Take 15 mg by mouth once daily. acetaminophen (TYLENOL) 325 mg tablet Take 650 mg by mouth every 6 hours as needed. No current facility-administered medications for this visit. 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 Skin: Skin color, texture, turgor normal. No rashes or lesions. Eyes: Anicteric sclera. Pupils are equally round and reactive to light. Extraocular movements are intact. Lymph Nodes: There is a 2 cm soft lymphadenopathy in the left neck mid, posterior neck. No supraclavicular, axillary or inguinal adenopathy. Oropharynx: Lips, mucosa, and tongue normal. Back: No pain to percussion. Negative SLR test Lungs clear to auscultation, No wheezing or rhonchi Heart: RRR without murmur, gallop, or rubs. Abdomen soft, there is generalized tenderness over the upper abdomen without any rebound or guarding. Extremities: 1+ pitting edema in the ankles. Neuro: Gait and speech normal. Reflexes normal and symmetric. Muscular strength intact. Sensation grossly intact. DATA: Outside laboratory results reviewed. White count 7.8, hemoglobin 13 g/dL with MCV of 78, platelet count of 195,000. LDH is elevated at 312 (normal level 100-235), uric acid 5.5, normal CMP with the exception of slightly elevated glucose. Negative chronic hepatitis panel. ASSESSMENT AND PLAN: 33-year-old gentleman presenting with bilateral tonsillar hypertrophy causing obstructive symptoms along with left cervical lymphadenopathy and night sweats. Pathology of the bilateral tonsils revealed mantle cell lymphoma with high Ki-67 expression (50%). P53 mutation status unknown. MIPI score = 5 Low Risk MIPIb-6.1 points, intermediate risk with addition of Ki-67 percentage Staging PET scan is pending He has upper abdominal symptoms as well as low MCV worrisome for upper GI tract involvement. This can be further evaluated with an endoscopy if needed after a PET scan. Today I discussed diagnosis, natural history, management and prognosis of mantle cell non-Hodgkin's lymphoma with patient and his . Although we have highly effective treatments that can achieve complete remission, recurrences are very common and expected with long-term follow-up. However therapeutic options for this disease is improving. Treatment consists of induction, consolidation and maintenance phases. Currently we do not have active clinical trials for participation. Therefore I would recommend conventional induction with Bendamustine 90 mg/m on days 1 and 2 with rituximab 375 mg/m day 1 of 28-day cycles for 3 cycles followed by cytarabine 2 g/m IV over 3 hours every 12 hours for 3 doses along with rituximab 375 mg/m every 28 days for 3 cycles. Assuming he achieves a complete remission with this regimen, I would recommend consultation with high-dose chemotherapy and autologous stem cell transplantation followed by maintenance rituximab every 2 months for 3 years. Today I will repeat his CBC to rule out any active GI bleeding along with iron studies. I will also repeat his renal function panel and uric acid to rule out rapid disease progression. If his symptoms increase prior to initiation of chemotherapy, short-term, 7-10-day course of oral prednisone may be helpful to slightly reduce and prepare him for treatment. I recommend continuation of H2 blockers and her perhaps addition of proton pump inhibitors. Today we also discussed short and long-term toxicity of chemotherapy including fatigue, infections, need for transfusion support, GI toxicity including risk of GI perforation in case of gastrointestinal involvement. I indicated that some men will lose fertility after chemotherapy particularly high-dose chemotherapy and if he wishes he should consider sperm banking. He was not interested in this at this time. I will contact his local oncologist Dr. Lan to discuss his case and provide any assistance I can including potential administration of his high-dose cytarabine in [place] if needed and arrangement of stem cell transplant consultation. Today I answered the patient's and his 's questions. We will arrange a virtual follow-up visit in 2 to 3 months. Cara Bravo M.D. Hematology/Medical Oncology [facility] Timothy Lan MD [address] [place] [id number] documented in this encounter [facility] 07-25-2023 Nurse Note Additional intake questions: Has the patient had fever, nausea, vomiting, diarrhea, constipation, fatigue for > 1 week? No Does the patient have a decreased appetite? No Does patient want to see a Gate Shear Operator? No (yes to any of above refer patient to schedulers for dietitian appointment) ) Does patient have any new or increased numbness or tingling of extremities? No Is patient interested in fertility information? No Does patient need any prescription refills? No Does patient have an advanced directive in place? no Electronically Signed By: Bettie Rothman LPN documented in this encounter [facility] 07-18-2023 History of Present illness Narrative ..07/18/23 Patient: Cece Golden 1990 Diagnosis: Mantle cell lymphoma The patient recently met with their primary oncologist to discuss available anti-cancer treatment options. The patient has elected to proceed with the recommendations. The patient presents today for education related to the recommended anti-cancer therapy. Learning Assessment Readiness to Learn [x] Yes [] No Barriers to Education [x] No [] Yes [] Hearing impaired [] Vision Impaired [] Low literacy level [] Language barrier. Patient speaks: [] Information Security Officer Services present. [] Anxiety [] Cognitive barriers [] Other: Learning Preference [x] Listening [x] Reading [x] Repetition [] Other: Present for Education: patient Diagnosis and Treatment Plan The patient was provided with written and verbal information regarding their diagnosis, treatment plan, diagnostic testing related to treatment, and location of treatment, including the following: Goal of Therapy [] Curative [] Palliative Treatment Plan Antineoplastic Day of Cycle Route Days Duration of Treatment Rituxan 1 IV 28 [x] # of cycles: 3 [] Dependent upon response to treatment and toxicities Bendeka 1 and 2 IV 28 [] G-CSF support - Given Day of each cycle, Subcutaneous Labs and Diagnostic Tests: Name and Type of Test When the test should be done [] Bone density testing [] Before first treatment then every 2 years [] ECG [] Before first treatment [] Before first treatment then: [] ECHO [] Before first treatment [] Before first treatment, every 3 months, at the completion of treatment. [] Other: [] Pulmonary Function Tests []Before first treatment [x] CBC and diff [] Day of treatment [x] Day before treatment [] Other: [x] CMP [] Day of treatment [x] Day before treatment [] Other: [x] Hepatitis B Testing [x] Before first treatment [] TSH with reflex T4 [] Before starting treatment then: [] Testing [] Before first treatment then: [] Other: []Before first treatment []Before first treatment then: Location of Treatment: [] Oral, patient's home [] [facility] [] [facility] ([place]) [] [facility] [] [facility] [x] [facility] ([place]) [] [facility] [] [facility] [] [facility] [] [facility] [] [facility] [] [facility] [] [facility] [] [facility] [] [facility] [] The patient was instructed that it would be necessary to have someone drive them to and from treatment. Side-Effects The major side effects of this treatment, marked below, were explained. We discussed that most risks are temporary but some may be permanent. We also discussed that with any medical treatment there is a possibility of unexpected complications. Written information regarding side effect management was provided to the patient, including signs and symptoms to report and supportive care strategies: or [] Alopecia [] Appetite, decreased [] Arthralgias/ myalgias [x] Bone marrow depression (anemia, leukopenia, thrombocytopenia) [x] Cancer (secondary malignancy), treatment related, increased risk [x] Cardiotoxicity [x] Arrhythmias [] CHF [] Other (type in): [] Cognitive changes (e.g., chemo brain) [x] Constipation [x] Dermatologic reactions (skin, nails) [x] Diarrhea [] Edema, peripheral [] Electrolyte changes [] Endocrinopathies [thyroid, pancreas, pituitary gland, adrenal glands] [x] Extravasation [x] Fatigue [] Fluid retention/peripheral edema [] Hearing changes [] Hemorrhagic cystitis [x] Hepatotoxicity [] Hypertension [] Hypotension [] Immune check point inhibitor immune mediated toxicities:colitis, skin reactions (rash, itching, mouth sores, blisters), pneumonitis, brain and nerve problems, hormone abnormalities of the pituitary gland, thyroid gland, and adrenal glands, eye problems (change in vision, eye pain, redness), nephritis and failure, carditis (rare) [x] Infection, increased risk [x] Infusion Reaction, allergic reactions [] Menopause Symptoms: hotflashes, vaginal dryness, decreased libido [] Mucositis [x] Nausea and Vomiting [x] Nephrotoxicity [] Osteopenia, Osteoporosis [] Peripheral neuropathy [] Pulmonary toxicity [x] Reproductive, possible effects on fertility and the fetus [] Taste changes [] Urine color change, temporary [] Venous Thromboembolism, increased risk (DVT, PE) [] Vision Changes, Ocular Toxicities [] Wound healing, impaired [] Other (type in): Supportive Care Medications [x] The patient was instructed to picker operator prescriptions prior to starting treatment. Supportive care medications, including indication, dose, frequency, and side-effects were reviewed and the patient was provided with written materials: [] Acyclovir (Zovirax) [] Allopurinol (Zyloprim) [] Diphenoxlylate/Atropine (Lomotil) [] Dexamethasone (Decadron). - The patient was instructed to take dexamethasone by mouth on . [] Emla Cr me. [] Loperamide (Immodium) [] Miralax [] Olanzapine (Zyprexa) [x] Ondansetron (Zofran) [x] Prochloperazine (Compazine) [] Sulfamethazole/Trimethoprim (Bactrim) [] Other (type in): Contact and Emergency Information/Appointments [x] The patient was provided with provider contact information and emergency contact information. They were advised to call the phone number provided 08/01, in the event that events occurred outside of normal business hours. They were advised of the process for cancelling and rescheduling appointments. The patient was provided with information regarding the frequency of office visits: [x] Before each treatment and more often if indicated. Patient instructed to refer to After Visit Summary for future appointments. [] Before each cycle and more often if indicated. Patient instructed to refer to After Visit Summary for future appointments. Safehandling Precautions in the Home [x] The patient was provided with written and verbal instructions regarding safehandling precautions in the home. [x] Office and emergency Contact Information [x] [facility]: A Guide to Living with Cancer* [x] OncoLink Antineoplastic Agent drug information [] Lexicomp Antineoplastic drug information [] NCCN Disease Specific Information (type in name): [] Neutropenia Wallet Card [] Immunotherapy Wallet Card [] Emla Cream Wallet Card [] Chemotherapy Calendar [] In addition to the side effect information included in the [facility] Guidebook, I have provided the patient with handouts on (type in name): [] Other: Patient Understanding Cece Golden was provided with an opportunity to ask any remaining questions. The patient was able to teach back the following information: [x] Diagnosis [x] Goals of Therapy [x] Names of antineoplastic medications [x] Supportive care medications, indications, dose, and frequency [x] Short and mcfp side effects, including indications to notify provider and self-care [x] Schedule and duration of treatment [x] Labs and diagnostic tests, including frequency and timing [x] Location of treatment [x] Frequency of office visits and procedure for cancelling and rescheduling appointments [x] Office and emergency contact information and examples of indications to call or go to the Emergency Room. [x] Safehandling precautions in the home [x] The patient was able to teach back the following information: possible effects on fertility and the fetus, need for contraception, and for females- testing. Total Time Spent: (type in) [x] 100% of the visit today was spent in counseling the patient [x] Time spent: 60 minutes *The [facility]: A Guide to Living with Cancer 2021 includes the following information: knowing when to call the doctor, cancer pathology and staging, cancer treatment overview, cancer treatment plan, symptoms (indications to call and management) for loss of appetite, low blood counts, chemo brain, constipation, diarrhea, dry mouth, fatigue, hair loss, hand foot syndrome, infertility, more sores and sore throat, nausea and vomiting, pain, peripheral neuropathy, sexual health and intimacy (including need for contraception), taste changes, and safehandling of hazardous medications. documented in this encounter [facility] 07-18-2023 History of Present illness Narrative P53 RESULTS SCANNED INTO MEDIA AND ROUTED TO DR. LAN TO REVIEW. [facility] 07[facility]17-[facility]23 History of Present illness Narrative Images from the original note were not included. INTERVAL HISTORY: Cece Golden [facility] to the [facility] for follow up on 07/17/2023. He is a 33 y.o. 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 At the time of the last visit in Mar 2023, the plan was to order APAP. Additional Interval History: He was setup on APAP in Apr 2023 with nasal mask from [facility]. He was working 2 jobs at this time and only sleeping 3 hours night. He did find PAP therapy to be a pain and did not yet have subjective benefit before he discontinued it for his tonsillectomy 06/25/23. He also had nasal surgery. He was to be able to resume it after 2 weeks, but then the path resulted in mantle cell lymphoma for which he will be having a scan and starting chemo newly establishing with oncology. He has been sleeping better, and his has not noticed apneas. She has not complained of his snoring. He does continue to work midnights. He has small children at home. Badger Sleepiness Scale: 02/23/2023 7:33 PM 04/17/2023 1:00 PM 07/17/2023 9:00 AM Badger Sleepiness Scale Sitting and Reading 1 1 1 Watching TV 2 2 2 Sitting inactive in a public place (theater, meeting) 0 0 0 As a passenger in a car for an hour without a break 3 3 3 Lying down in the afternoon to rest 1 2 2 Sitting and talking to someone 0 0 0 Sitting quietly after lunch (without alcohol) 1 0 1 In a car, while stopped for a few minutes in traffic 0 0 0 Total 8 8 9 PAST MEDICAL HISTORY: Patient Active Problem List Diagnosis Essential hypertension Class 3 severe obesity due to excess calories without serious comorbidity with body mass index (BMI) of 45.0 to 49.9 in adult ([facility]) Type 2 diabetes mellitus without complication, without long-term current use of insulin ([facility]) Obstructive sleep apnea hypopnea, severe 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 ([facility]) Past Medical History: Diagnosis Date Diabetes mellitus ([facility]) Hyperlipidemia Hypertension MCL (mantle cell lymphoma) ([facility]) 07/12/2023 Severe obstructive sleep apnea Past Surgical History: Procedure Laterality Date ADENOIDECTOMY TONSILLECTOMY Bilateral Circumferential 06/25/2023 ALLERGIES: Allergies Allergen Reactions Lisinopril Cough MEDICATIONS: Current Outpatient Medications on File Prior to Visit Medication Sig Dispense Refill albuterol (PROVENTIL HFA;VENTOLIN HFA) 90 mcg/actuation inhaler Inhale 2 puffs every 6 (six) hours as needed for wheezing or shortness of breath. 6.7 g 0 famotidine (PEPCID) 20 mg tablet Take 1 tablet (20 mg total) by mouth in the morning and 1 tablet (20 mg total) before bedtime. 60 tablet 2 fexofenadine (JANE) 180 mg tablet Take 1 tablet (180 mg total) by mouth in the morning. 30 tablet 2 fluticasone propionate (FLONASE) 50 mcg/actuation nasal spray Administer 1 spray into each nostril in the morning. 15.8 mL 2 losartan (COZAAR) 100 mg tablet TAKE 1 TABLET BY MOUTH EVERY DAY 90 tablet 1 metFORMIN XR (GLUCOPHAGE XR) 500 mg 24 hr tablet TAKE 1 TABLET(500 MG) BY MOUTH DAILY WITH BREAKFAST 90 tablet 0 rosuvastatin (CRESTOR) 5 mg tablet Take 1 tablet (5 mg total) by mouth in the morning. 90 tablet 1 STEGLATRO 15 mg tablet TAKE 1 TABLET BY MOUTH EVERY DAY 90 tablet 1 semaglutide (OZEMPIC) 2 mg/dose (8 mg/3 mL) pen injector Inject 2 mg under the skin every 7 days. (Patient not taking: Reported on 07/12/2023) 12 mL 1 No current facility-administered medications on file prior to visit. FAMILY HISTORY: Family History Problem Relation Age of Onset Depression Mother Diabetes Father Prostate cancer Father Colon cancer Father SOCIAL HISTORY: Social History Socioeconomic History Marital status: Spouse name: Not on file Number of children: Not on file Years of education: Not on file Highest education level: Not on file Occupational History Not on file Tobacco Use Smoking status: Never Smokeless tobacco: Never Vaping Use Vaping Use: Never used Substance and Sexual Activity Alcohol use: Not Currently Drug use: Never Sexual activity: Yes Partners: Female Other Topics Concern Not on file Social History Narrative Not on file Social Determinants of Health Financial Resource Strain: Low Risk (09/12/2022) Overall Financial Resource Strain (CARDIA) Difficulty of Paying Living Expenses: Not hard at all Food Insecurity: No Food Insecurity (07/12/2023) Hunger Screening Food Insecurity - Worry: Never True Food Insecurity - Inability: Never True Transportation Needs: No Transportation Needs (09/12/2022) PRAPARE - Transportation Lack of Transportation (Medical): No Lack of Transportation (Non-Medical): No Physical Activity: Inactive (06/01/2022) Exercise Vital Sign Days of Exercise per Week: 0 days Minutes of Exercise per Session: 0 min Stress: No Stress Concern Present (06/01/2022) [employer] [employer] - Occupational Stress Questionnaire Feeling of Stress : Not at all Social Connections: Moderately Isolated (05/31/2022) Social Connection and Isolation Panel [NHANES] Frequency of Communication with Friends and Family: More than three times a week Frequency of Social Gatherings with Friends and Family: More than three times a week Attends Religion Services: Never Active Member of Clubs or Organizations: No Attends Club or Organization Meetings: Never Marital Status: Interpersonal Safety: Not At Risk (05/31/2022) Humiliation, Afraid, Rape, and Kick questionnaire Fear of Current or Ex-Partner: No Emotionally Abused: No Physically Abused: No Sexually Abused: No Housing Instability: Low Risk (09/12/2022) Housing Instability Housing Instability: No REVIEW OF SYSTEMS: Cardiovascular and pulmonary systems negative. PHYSICAL EXAMINATION: BP 131/76 Pulse 101 Ht 176.5 cm (5' 9.49 ) Wt (!) 156.9 kg (345 lb 12.8 oz) SpO2 95% BMI 50.35 kg/m General appearance: Obese, no acute distress. Bearded Eyes: no conjunctival erythema, no scleral icterus. Dysconjugate gaze. Ears, Nose, Mouth and Throat: external ears unremarkable, external nose unremarkable Neck: trachea position midline. Respiratory: respiratory effort normal Musculoskeletal: normal gait and station. Extremities: No c/c/e. Skin: No rash/ lesions/ulcers/ induration/subcutaneous nodules in visible regions. Neurologic: CN II-XII grossly intact. Mental Status: Cognitive: Alert and oriented x 3. Insight good. Judgment good. DATA: Lab Results Component Value Date WBC 7.8 07/14/2023 HGB 13.0 07/14/2023 HCT 39.2 07/14/2023 MCV 78 (L) 07/14/2023 PLT 195 07/14/2023 No results found for: FERRITIN Chemistry Component Value Date/Time K 4.1 07/14/2023 1026 CL 105 07/14/2023 1026 CO2 28 07/14/2023 1026 BUN 14 07/14/2023 1026 CREATININE 0.55 (L) 07/14/2023 1026 GLU 126 (H) 07/14/2023 1026 Component Value Date/Time CALCIUM 8.8 07/14/2023 1026 ALKPHOS 90 07/14/2023 1026 AST 16 07/14/2023 1026 ALT 12 07/14/2023 1026 No results found for: TSH PAP data card download 04/16/23 - 07/14/23 10.4 13.5 14.7 Percent days with device use =32% Average use: 3 hours 23 minutes per day Percent days with use >=4 hours: 10% Average AHI = 5.4 OAI 4.4 Average time in large leak/day = hr min seconds 95th percentile leak = 29 L/min ASSESSMENT: Mr. Golden is a 33 y.o. 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 He stopped using his machine after his tonsillectomy and although approved to resume deferred after his cancer diagnosis. He plans to resume therapy but may ultimately fail compliance. Although his apnea is likely improved after his surgeries, it is unlikely they were curative for which I'd recommend resuming PAP therapy he is amenable to. If he has trouble or fails compliance may revisit repeat testing including with titration. Will reassess AHI pressure setting leak once he resume PAP therapy. He is no longer working two jobs so getting more sleep, but still working midnights I encouraged regular follow up with his primary care physician and other specialists for preventative and otherwise indicated health screening as well as management of comorbid medical conditions including lymphoma. I advise maintenance of a normal body weight, and support annual flu and COVID vaccination. Call if problems/questions arise prior to follow up Follow up in 1 month(s) EDUCATION: Risks of untreated obstructive sleep apnea were reviewed. Driving precautions were reviewed. I advised the patient not to drive if sleepy, and to pulley worker if sleepiness occurs while driving. Above plan as discussed with the patient who acknowledged understanding and agreement. Maddi Fitch MD [facility] [address] [place] [id number] documented in this encounter [facility] 07-13-2023 History of Present illness Narrative Patient is here for consult with Dr. Lan for lymphoma. Orders received for PET colt. Check p53 on biopsy order faxed to [facility]. Lab: CBC, CMP, URIC ACID LDH, hepatitis B profile. Plan to start R-Bendamustine for 3 cycles and R-high dose Cytarabine 3 cycles. Given info on R-bendamustine. Patient scheduled for chemo teaching. Referral to [facility]. Referral faxed. Will need F/u before C2. Will scheduled treatment upon insurance approval. documented in this encounter [facility] 07-13-2023 History of Present illness Narrative Images from the original note were not included. [facility] 07/13/23 Cece Golden is a 33 y.o. year old male seen today in the oncology clinic. Chief Complaint Patient presents with Lymphoma Consult History of Present Illness: Mr. Golden is a 33 y.o. male with history of diabetes and sleep apnea who developed raspy voice about a year ago, 6 months ago he developed progressive discomfort over his throat and unable to swallow very well. After sleep apnea evaluation, he underwent bilateral tonsillectomy 06/25/2023. Final path showed mantle cell lymphoma. He was referred to Medical Oncology for further evaluation. The patient noted several episodes of drenching night sweats since May 2023. He had some weight loss but thought it was due to use of Ozempic. After tonsillectomy, he is able to eat well, he noted some lymph nodes around his neck. No lumps and bumps anywhere else. He has 2 children. Past Medical History: Diagnosis Date Diabetes mellitus ([facility] Hyperlipidemia Hypertension Severe obstructive sleep apnea Past Surgical History: Procedure Laterality Date ADENOIDECTOMY TONSILLECTOMY Bilateral Circumferential 06/25/2023 Family History Problem Relation Age of Onset Depression Mother Diabetes Father Prostate cancer Father Colon cancer Father Social History Socioeconomic History Marital status: Spouse name: Not on file Number of children: Not on file Years of education: Not on file Highest education level: Not on file Occupational History Not on file Tobacco Use Smoking status: Never Smokeless tobacco: Never Vaping Use Vaping Use: Never used Substance and Sexual Activity Alcohol use: Yes Drug use: Never Sexual activity: Yes Partners: Female Other Topics Concern Not on file Social History Narrative Not on file Social Determinants of Health Financial Resource Strain: Low Risk (09/12/2022) Overall Financial Resource Strain (CARDIA) Difficulty of Paying Living Expenses: Not hard at all Food Insecurity: No Food Insecurity (07/12/2023) Hunger Screening Food Insecurity - Worry: Never True Food Insecurity - Inability: Never True Transportation Needs: No Transportation Needs (09/12/2022) PRAPARE - Transportation Lack of Transportation (Medical): No Lack of Transportation (Non-Medical): No Physical Activity: Inactive (06/01/2022) Exercise Vital Sign Days of Exercise per Week: 0 days Minutes of Exercise per Session: 0 min Stress: No Stress Concern Present (06/01/2022) [place] [employer] - Occupational Stress Questionnaire Feeling of Stress : Not at all Social Connections: Moderately Isolated (05/31/2022) Social Connection and Isolation Panel [NHANES] Frequency of Communication with Friends and Family: More than three times a week Frequency of Social Gatherings with Friends and Family: More than three times a week Attends Religion Services: Never Active Member of Clubs or Organizations: No Attends Club or Organization Meetings: Never Marital Status: Interpersonal Safety: Not At Risk (05/31/2022) Humiliation, Afraid, Rape, and Kick questionnaire Fear of Current or Ex-Partner: No Emotionally Abused: No Physically Abused: No Sexually Abused: No Housing Instability: Low Risk (09/12/2022) Housing Instability Housing Instability: No Allergies Allergen Reactions Lisinopril Cough Medication List Accurate as of July 13, 2023 5:16 PM. If you have any questions, ask your nurse or doctor. Medications Continued This Visit albuterol 90 mcg/actuation inhaler Quantity: 6.7 g Refills: 0 Doctor's comments: Please dispense whichever albuterol HFA product is preferred by patient insurance. For diagnoses: Acute cough Dose: 2 puff Signed by: ANN MARIE Gilbert 2 puffs, inhalation, Every 6 hours PRN Commonly known as: PROVENTIL HFA;VENTOLIN HFA famotidine 20 mg tablet Quantity: 60 tablet Refills: 2 For diagnoses: Gastroesophageal reflux disease with esophagitis, unspecified whether hemorrhage Dose: 20 mg Signed by: WILLIAMS Parsons 20 mg, oral, 2 times daily Commonly known as: PEPCID fexofenadine 180 mg tablet Quantity: 30 tablet Refills: 2 Dose: 180 mg Signed by: WILLIAMS Parsons 180 mg, oral, Daily Commonly known as: JANE fluticasone propionate 50 mcg/actuation nasal spray Quantity: 15.8 mL Refills: 2 Dose: 1 spray Signed by: WILLIAMS Parsons 1 spray, nasal, Daily Commonly known as: FLONASE losartan 100 mg tablet Quantity: 90 tablet Refills: 1 Doctor's comments: Patient requests 90 days supply Signed by: ANN MARIE Gilbert TAKE 1 TABLET BY MOUTH EVERY DAY Commonly known as: COZAAR metFORMIN XR 500 mg 24 hr tablet Quantity: 90 tablet Refills: 0 Signed by: Dr. Jean Gillette DO TAKE 1 TABLET(500 MG) BY MOUTH DAILY WITH BREAKFAST Commonly known as: GLUCOPHAGE XR OZEMPIC 2 mg/dose (8 mg/3 mL) pen injector Quantity: 12 mL Refills: 1 Dose: 2 mg Signed by: ANN MARIE Gilbert 2 mg, subcutaneous, Every 7 days Generic drug: semaglutide rosuvastatin 5 mg tablet Quantity: 90 tablet Refills: 1 Doctor's comments: Patient requests 90 days supply Dose: 5 mg Signed by: Amanda SanchezWILLIAMS 5 mg, oral, Daily Commonly known as: CRESTEDWIN BLANCAGLATRO 15 mg tablet Quantity: 90 tablet Refills: 1 Signed by: Dr. Jean Gillette, DO TAKE 1 TABLET BY MOUTH EVERY DAY Generic drug: ertugliflozin Review of Symptoms: Review of Systems ECO- Symptomatic; fully ambulatory Physical Exam: General: Well appearing, in no acute distress. Vitals: BP 128/85 Pulse 101 Temp 36.9 C (98.5 F) (Oral) Resp 18 Ht 176.5 cm (5' 9.49 ) Wt (!) 157.9 kg (348 lb) SpO2 96% BMI 50.67 kg/m Body mass index is 50.67 kg/m . Eyes: No icterus, no conjuctival erythema ENT: Pharyngeal mucosa was moist without exudate and inflammation or ulcerations. Tongue was midline and appeared normal.Gums were unremarkable. Lymph nodes: No palpable adenopathy in axillary area. The patient does have some borderline cervical lymphadenopathy. Neck: Supple. There were no masses, tenderness. Trachea was midline. Respiratory: Respirations were non-labored. Lungs were clear to auscultation. There was no dullness to percussion. Cardiac: Regular rate and rhythm, S1 and S2 sounds were normal. There were no rubs or gallops. Abdomen: Soft, non-tender, Nondistended. Bowel sounds audible in all four quadrants. There were no palpable masses. The liver and spleen were not enlarged. Extremities: There was no clubbing, Cyanosis, edema. Skin: There was no obvious rashes, bruising or ecchymosis. Back exam: No palpable tenderness was appreciated. Neurologic: There was no unilateral weakness. Mood and affect: Normal. Recent Imaging: No results found. Recent Labs: No results found for this or any previous visit (from the past 336 hour(s)). 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 He is 11: 14 translocation is positive, Ki-67 is 60-70%. I discussed with the patient and his the biopsy results and the natural history of mantle cell lymphoma. While mantle cell lymphoma can often have an aggressive clinical course, the patient's Ki-67 score of 60-70% suggests a aggressive process. I will check TP53 status on his tonsillectomy sample. PET colt to complete staging. Check p53 on final tonsillectomy sample from [facility] Lab: CBC, CMP, URIC ACID LDH, hepatitis B profile. Plan to start induction treatment with Rituxan bendamustine every 4 weeks for 3 cycles followed by 3 cycels of HiDAC (Q28 days, 2g every 12 hours, for 4 doses). Refer patient to [facility] for possible autologous stem cell transplant consolidation in the future. F/u before C2. Thank you. Timothy Lan MD Please note that portions of this note were generated using voice recognition [employer] dictation software. Although every effort was made to ensure the accuracy of this automated horses or mules teamster, some errors in horses or mules teamster may have occurred. CC: Patient Care Team: Jean Gillette DO as PCP - General (Family Medicine) ANN MARIE Barrios as Nurse Practitioner (Internal Medicine) ANN MARIE Barrios as Nurse Practitioner (Internal Medicine) Timothy Lan MD as Consulting Physician (Hematology) PCP:Jean Gillette Referring MD: Melanie Nunez APRN-C* [facility] Instructions Timothy Lan MD - 07/13/2023 3:30 PM EST PET colt. Check p53 on biopsy. Lab: CBC, CMP, URIC ACID LDH, hepatitis B profile. Plan to start R-Bendamustine for 3 cycles and R-high dose Cytarabine 3 cycles. Give info on R-bendamustine. Referral to [facility]. F/u before C2. [facility]12[facility]23 History of Present illness Narrative [address] [facility] [id number] Patient: Cece Golden Date of : 1990 Encounter Date: 07/12/2023 History of Present Illness: The patient is a 33 y.o. male, an established patient, and is here for Chief Complaint Patient presents with Ear Drainage Blood coming out of ear. Also a lump on the left side of neck. More than 6 months . HPI Yesterday morning patient placed a Q-tip in his left ear to clean it out and had no symptoms but this morning he found blood in his ear canal when he put his pinky finger in there to scratch. He has had some mild pain and bloody discharge ever since. Patient also has noticed for at least the last 6 months that a lymph node in his left neck has been enlarged and nontender. He did not think anything of it and has not mentioned it to a provider until now. Patient is status post tonsillectomy 3 weeks ago on June 25. Patient denies any unintentional weight loss. 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 Past Medical History: Diagnosis Date Diabetes mellitus ([facility]) Hyperlipidemia Hypertension Severe obstructive sleep apnea Past Surgical History: Procedure Laterality Date ADENOIDECTOMY TONSILLECTOMY Bilateral Circumferential 06/25/2023 Current Outpatient Medications Medication Sig Dispense Refill albuterol (PROVENTIL HFA;VENTOLIN HFA) 90 mcg/actuation inhaler Inhale 2 puffs every 6 (six) hours as needed for wheezing or shortness of breath. 6.7 g 0 famotidine (PEPCID) 20 mg tablet Take 1 tablet (20 mg total) by mouth in the morning and 1 tablet (20 mg total) before bedtime. 60 tablet 2 fexofenadine (JANE) 180 mg tablet Take 1 tablet (180 mg total) by mouth in the morning. 30 tablet 2 fluticasone propionate (FLONASE) 50 mcg/actuation nasal spray Administer 1 spray into each nostril in the morning. 15.8 mL 2 losartan (COZAAR) 100 mg tablet TAKE 1 TABLET BY MOUTH EVERY DAY 90 tablet 1 metFORMIN XR (GLUCOPHAGE XR) 500 mg 24 hr tablet TAKE 1 TABLET(500 MG) BY MOUTH DAILY WITH BREAKFAST 90 tablet 0 rosuvastatin (CRESTOR) 5 mg tablet Take 1 tablet (5 mg total) by mouth in the morning. 90 tablet 1 STEGLATRO 15 mg tablet TAKE 1 TABLET BY MOUTH EVERY DAY 90 tablet 1 semaglutide (OZEMPIC) 2 mg/dose (8 mg/3 mL) pen injector Inject 2 mg under the skin every 7 days. (Patient not taking: Reported on 07/12/2023) 12 mL 1 No current facility-administered medications for this visit. (All medications reviewed and updated by provider since last office visit or hospitalization) Allergies: Lisinopril Tobacco History: Social History Tobacco Use Smoking Status Never Smokeless Tobacco Never (If patient a smoker, smoking cessation counseling offered) Social History: Social History Substance and Sexual Activity Alcohol Use Yes Review of Systems: Review of Systems Constitutional: Positive for fatigue. Negative for unexpected weight change. HENT: Positive for ear discharge and ear pain. Respiratory: Negative. Cardiovascular: Negative. Neurological: Negative. Physical Exam: BP 136/72 (BP Site: Left Arm, BP Postition: Sitting) Pulse 106 Temp 37.1 C (98.7 F) Ht 180.3 cm (5' 11 ) Wt (!) 155.6 kg (343 lb) SpO2 96% BMI 47.84 kg/m Physical Exam Vitals reviewed. Constitutional: Appearance: Normal appearance. He is obese. HENT: Head: Normocephalic and atraumatic. Right Ear: Hearing normal. A middle ear effusion is present. Left Ear: Drainage (Bleeding in left ear canal/scabbing) present. Tympanic membrane is perforated (It appears there may be a small perforation of tympanic membrane at 4:00 pm with bloody drainage around area). Nose: Congestion present. Mouth/Throat: Mouth: Mucous membranes are moist. Comments: Tonsils absent Eyes: Pupils: Pupils are equal, round, and reactive to light. Cardiovascular: Rate and Rhythm: Normal rate and regular rhythm. Heart sounds: Normal heart sounds. Pulmonary: Effort: Pulmonary effort is normal. Breath sounds: Normal breath sounds. Lymphadenopathy: Cervical: Cervical adenopathy present. Right cervical: Superficial cervical adenopathy (Mildly enlarged and nontender supraclavicular lymph node) present. Left cervical: Superficial cervical adenopathy (Enlarged and nontender supraclavicular lymph node) present. Skin: General: Skin is warm. Capillary Refill: Capillary refill takes less than 2 seconds. Neurological: General: No focal deficit present. Mental Status: He is alert and oriented to person, place, and time. Psychiatric: Mood and Affect: Mood normal. Behavior: Behavior normal. Assessment and Plan: Cece was seen today for ear drainage. 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 We will set him up with Dr. Lan in [place]. He should let us know if he can not get an appointment within a timely manner. He should not stick anything else in his ear and be cautious with getting any water in his ear for at least the next 2-3 weeks. If he has persistent hearing loss or drainage he should notify provider. ANN MARIE BARRIOS APRN-CNP 07/12/232054 documented in this encounter [facility] 05-18-2023 Evaluation note Encounter Date Diagnosis Assessment [...] understanding and is agreeable to treatment plan 360T Other 03-07-2023 Evaluation note* Encounter Date Diagnosis Assessment Notes Treatment Notes Treatment Clinical Notes Aug, Strain of right trapezius muscle, [...] to 4 days. Aug, Other Neck sprain mat erial was printed 360T Other 01-02-2022 NotePROCEDURE: XR CHEST 1 V REASON FOR STUDY/CLINICAL [...] Electronically authenticated by: MATTHEW DOBBINS Date: 2021-06-18 23:11[facility]10-03-2021 Evaluation note* Encounter Date Diagnosis Assessment Notes Treatment Notes Treatment Clinical Notes Mar, Contact with and (suspected) exposure [...] instructions given in writting by [facility] document. 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) Mantle cell lymphoma, lymph nodes of head, face, and neck [facility] Diagnosis Obstructive sleep apnea- Primary Obstructive sleep apnea (adult) (pediatric) S/P tonsillectomy Other postprocedural status 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) Mantle cell lymphoma, lymph nodes of head, face, and neck Shift work sleep disorder Circadian rhythm sleep disorder, shift work type [facility] Diagnosis 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)- Primary Mantle cell lymphoma, lymph nodes of head, face, and neck [facility]* Diagnosis 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) [facility] Diagnosis Type 2 diabetes mellitus without complication, without long-term current use of insulin (CMS-HCC)- Primary [facility]* Diagnosis 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)- Primary Mantle cell lymphoma, lymph nodes of head, face, and neck [facility]* Diagnosis 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 ([facility])- Primary Mantle cell lymphoma, lymph nodes of head, face, and neck Pleural effusion Unspecified pleural effusion [facility] Diagnosis 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)- Primary Mantle cell lymphoma, lymph nodes of head, face, and neck [facility] Diagnosis 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 ([facility])- Primary Mantle cell lymphoma, lymph nodes of head, face, and neck [facility]* Diagnosis Type 2 diabetes mellitus without complication, without long-term current use of insulin ([facility])- Primary Class 3 severe obesity due to excess calories without serious comorbidity with body mass index (BMI) of 45.0 to 49.9 in adult ([facility]) Essential hypertension Unspecified essential hypertension Gastroesophageal reflux disease with esophagitis, unspecified whether hemorrhage [facility] - Reported* Type Description Date Medical History diabetes mallitus Medical History hypertension Medical History hypercholesterolemia Surgical History adenoidectomy 360T Other InstructionsNot on filedocumented in this encounter [facility] filedocument[facility] in [facility] filedocumented in this encounter [facility] filedocumented in this [facility] filedocumented in this encounter [facility] on filedocumented in this encounter [facility] on filedocumented in this encounter [facility] on filedocumented in this encounter [facility] filedocumented in this encounter [facility] filedocumented in this encounter [facility]ructionsNot on filedocumented in this encounter [facility] for [facility] (narrative)* Consultation (Routine) - Pending Review Specialty Diagnoses / Procedures Referred By Conttroy t Referred To Contact Oncology Diagnoses 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 ([facility]) Melanie Nunez, COMPLIANCE [employer] EQUIPMENT TECHNICIAN [address] [place] [address] Timothy Lan MD [facility] [place] [address] Referral ID Status Reason Start Date Expiration Date Visits Requested Visits Authorized [id number] Pending Review Specialty Services Required 07/12/2023 07/11/2024 1 1 [facility] Summary Purpose Family History No Family History [...] Directives Records FoundNo Advanced Directives Records Found Reason for Referral Specialty Diagnoses / Procedures Referred By Conttroy t Referred To Contact Radiology Diagnoses 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 ([facility]) Procedures PET CT skull to thigh Timothy Lan MD [address] [place] [id number] Referral ID Status Reason Start Date Expiration Date V isits Requested Visits Authorized [id number] Pending Review 07/13/2023 07/12/2024 1 1 Additional Source Comments (unrecognized sect ion and content) No Status Records FoundNo Status Records FoundNo Status Records FoundNo Status Records FoundNo Status Records FoundNo Status Records FoundNo Status Records FoundNo Status Records Found INFORMATION SOURCE (unrecogn ized section and content) DATE CREATED AUTHOR 09/30/2018 [facility] DATE CREATED AUTHOR AUTHOR'S ORGANIZ ATION 04/17/2021 [facility] DATE CREATED AUTHOR AUTHOR'S ORGANIZ ATION 06/21/2021 [facility] DATE CREATED AUTHOR AUTHOR'S ORGANIZ ATION 09/10/2022 [facility] DATE CREATED AUTHOR AUTHOR'S ORGANIZ ATION 07/25/2023 [facility] DATE CREATED AUTHOR AUTHOR'S ORGANIZ ATION 07/26/2023 [facility] DATE CREATED AUTHOR AUTHOR'S ORGANIZ ATION 08/19/2023 [facility] DATE CREATED AUTHOR AUTHOR'S ORGANIZ ATION 08/22/2023 [facility] REASON FOR VISIT (unrecogniz ed section and content) Reason Comments Outpatient Infusion [place] Specialty Diagnoses / Procedures Referred By Desi vincent Referred To Contact Diagnoses 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 ([facility]) Procedures INJECTION, RITUXIMAB-ABBS,BIOSIMILAR,(TR UXIMA),10MG NJ INJ., BENDEKA 1 MG NJ CYTARABINE HCL 100 MG INJ INJECTION, PEGFILGRASTIM-JMDB, BIOSIMILAR, (FULPHILA), 0.5 MG NJ GRANISETRON HCL INJECTION NJ DIPHENHYDRAMINE HCL INJECTIO NJ DEXAMETHASONE SODIUM PHOS Timothy Lan MD [address] [place] [address] [address] [place], [place] [id number] [facility] [address] [place] [phone] Referral ID Status Reason Start Date Expiration Date V isits Requested Visits Authorized [id number] Authorized 07/13/2023 01/25/2024 6 6 Reason Comments Ear Drainage Blood coming out of ear. Also a lump on the left side of neck. More than 6 months Reason Comments Lymphoma Consult Specialty Diagnoses / Procedures Referred By Desi vincent Referred To Contact Oncology Diagnoses 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 ([facility]) Melanie Nunez, COMPLIANCE [employer]AL EQUIPMENT TECHNICIAN [address] [place] [address] Timothy Lan MD [address] [place] [id number] Referral ID Status Reason Start Date Expiration Date Visits Requested Visits Authorized [id number] Pending Review Specialty Services Required 07/12/2023 07/11/2024 1 1 Reason Comments Sleep Apnea DME: [facility] Reason Comments Chemotherapy Teaching Reason Comments Consult Specialty Diagnoses / Procedures Referred By Desi vincent Referred To Contact Hematology/Oncology / HEMATOLOGY/ONCOLOGY Diagnoses MANTLE CELL LYMPHOMA REFERRAL DR AGUIRRE Procedures CON INT PATIENT Timothy Lan MD [address] [address] [place] [address] [place] [address] Referral ID Status Reason Start Date Expiration Date V isits Requested Visits Authorized [id number] Closed OON/Self Pay Override 07/25/2023 06/17/2024 1 1 Reason Comments Chemotherapy Reason Comments Diabetes Care Teams (unrecognized sec tion and content) Ladle Puller Relationship Specialty Start Date End Date Jean Gillette DO [address] [place] [address] PCP - General Family Medicine 07/05/22 Ladle Puller Relationship Specialty Start Date End Date Jean Gillette DO [address] [place] [address] PCP - General Family Medicine 07/05/22 Ladle Puller Relationship Specialty Start Date End Date Jean Gillette DO [address] [place] [address] PCP - General Family Medicine 07/05/22 Ladle Puller Relationship Specialty Start Date End Date Jean Gillette DO [address] [place] [address] PCP - General Family Medicine 07/05/22 Ladle Puller Relationship Specialty Start Date End Date Jean Gillette DO [address] [place] [address] PCP - General Family Medicine 07/05/22 Ladle Puller Relationship Specialty Start Date End Date DorierandyJean javier [address] [place] [address] PCP - General Family Medicine 07/05/22 Ladle Puller Relationship Specialty Start Date End Date Timothy Lan MD [address] [place] [address] Hematology/Oncology 07/18/23 Ladle Puller Relationship Specialty Start Date End Date WilJean javier [address] [place] [address] PCP - General Family Medicine 07/05/22 Ladle Puller Relationship Specialty Start Date End Date NainJean [address] [place] [address] PCP - General Family Medicine 07/05/22 Ladle Puller Relationship Specialty Start Date End Date WilJean javier [address] [place] [address] PCP - General Family Medicine 07/05/22 Ladle Puller Relationship Specialty Start Date End Date NainJean [address] [place] [address] PCP - General Family Medicine 07/05/22 Ladle Puller Relationship Specialty Start Date End Date NainJean [address] [place] [address] PCP - General Family Medicine 07/05/22 Ladle Puller Relationship Specialty Start Date End Date Jean Gillette DO [address], [place] [address] PCP - General Family Medicine 07/05/22 Ladle Puller Relationship Specialty Start Date End Date Jean Gillette DO [address], [place] [address] PCP - General Family Medicine 07/05/22 Ladle Puller Relationship Specialty Start Date End Date Jean Gillette DO [address], [place] [address] PCP - General Family Medicine 07/05/22 Ladle Puller Relationship Specialty Start Date End Date Jean Gillette DO [address], [place] [address] PCP - General Family Medicine 08/19/23 Source Comments (unrecognize d section and content) In the event this informatio n is protected by the Federal Confidentiality of Alcohol and Drug Abuse Patient Records regulations: The Federal rules restrict any use of the information to criminally investigate or prosecute any alcohol or drug abuse patient.[facility] FOR RECORDS PERTAINING TO PATIENTS WHO ARE [...] BE BASED ON THE PRIMARY CLINICAL RECORDS. [facility] [employer] [facility]. provides no warranty or guarantee of the accuracy or completeness of information in this document.
--- NOTE | 2023-08-23 11:08 | ED_ITS ---
HPI - General Adult General Chief complaint: Nausea/Vomiting/Diarrhea Stated complaint: DEHYDRATION/NAUSEA Time Seen by Provider: 08/23/23 10:43 Source: patient Mode of arrival: Wheelchair Limitations: no limitations History of Present Illness HPI narrative: This patient is here with his with complaint of continuing cough. He has an interesting history. In May this last year he was a exhibiting signs of sleep apnea and had tonsillar hypertrophy. He had a tonsillectomy in [facility] and subsequent pathology reports indicate that he had non-Hodgkin's lymphoma. He is at the current center in [place] getting chemotherapy. His last and first chemotherapy was last week, taking rituximab, he then recently several days ago was at the emergency room and they diagnosed RSV. At that time influenza testing was negative COVID testing was negative and he had a CTA to rule out pulmonary embolism which was negative for acute pulmonary process. On that report, which I viewed, he has a lot of lymphadenopathy in the abdominal area. There is no other findings in his chest. He is having green sputum. His symptoms have been present for 1 week. He did take 1 dose of prednisone that was used to treat his RSV infection. He is not on any antibiotics. The noticed redness of the skin developing after he took the prednisone. However this was also after he took his first dose of the chemotherapy which is known to cause pruritus and flushing of the skin. He has not experienced any angioneurotic edema or actual documented hives or whelps. He is also taking Benadryl to help his symptoms. Related Data Home Medications Medication Instructions Recorded Confirmed ertugliflozin 15 mg tablet 15 mg PO DAILY 06/17/23 06/17/23 (Steglatro) losartan 100 mg tablet 100 mg PO DAILY 06/17/23 06/17/23 metformin 500 mg tablet,extended 500 mg PO DAILY 06/17/23 06/17/23 release 24 hr Previous Rx's Medication Instructions Recorded famotidine 20 mg tablet (Pepcid) 20 mg PO BID #10 tabs 05/20/23 prednisone 20 mg tablet 40 mg (2 x 20 mg) PO DAILY 7 days 06/17/23 #14 tabs Allergies Allergy/AdvReac Type Severity Reaction Status Date / Time ibuprofen AdvReac Intermediate Verified 08/23/23 10:36 lisinopril AdvReac Mild cough Verified 08/23/23 10:36 PFSH PFSH Social History Smoking status: Never smoker Exam Narrative Exam Narrative: Awake alert very pleasant gentleman here with his . His vital's are stable. He does have a low-grade fever. He did not produce any sputum while here. He has no respiratory distress. On skin examination he has mild flushing of the skin but no hives or whelps or vesicles. His oral cavity he is status post tonsillectomy/does not have angioneurotic edema of his lips tongue or floor the mouth. His lungs are clear with no wheeze rales or rhonchi however when I have him forcefully exhale or cough he has got some bronchial spasm. Heart sounds are normal with no murmur. Does not have any abdominal pain or discomfort. His legs do not have any edema phlebitis or tenderness. Constitutional Vital Signs, click to edit/add: Last Vital Signs Temp 100.4 F 08/23/23 10:28 Pulse 112 H 08/23/23 10:45 Resp 19 08/23/23 10:45 BP 121/88 08/23/23 10:29 Pulse Ox 94 L 08/23/23 10:45 O2 Del Method Room Air 08/23/23 10:28 Course Vital Signs Vital signs: Vital Signs Temperature 100.4 F 08/23/23 10:28 Pulse Rate 119 H 08/23/23 10:28 Respiratory Rate 22 08/23/23 10:28 Blood Pressure 121/88 08/23/23 10:28 Pulse Oximetry 95 08/23/23 10:28 Oxygen Delivery Method Room Air 08/23/23 10:28 Temperature 100.4 F 08/23/23 10:28 Pulse Rate 112 H 08/23/23 10:45 Respiratory Rate 19 08/23/23 10:45 Blood Pressure 121/88 08/23/23 10:29 Pulse Oximetry 94 L 08/23/23 10:45 Oxygen Delivery Method Room Air 08/23/23 10:28 Medical Decision Making [facility] Narrative Medical decision making narrative: Patiently just recently had a CBC several days ago and he is showing evidence of trending down on his white blood cell count so I thought would be prudent to repeat that. A repeat chest x-ray will be done as well. The white blood cell count has recovered. His chest x-ray does not show any acute findings. This patient tested RSV positive and was placed on steroids. I do not believe there is any efficacy at this stage. He does have some bronchospasm so we will place him on albuterol. With the weekend coming out and with him having some immune compromise I am going to give him a prescription for a antibiotic, Z-Efra. He was instructed to use that should he have febrile spells over the weekend or worsening sputum production. He will follow-up with his oncologist on an as necessary basis Lab Data Labs: Lab Results 08/23/23 Range/Units 10:39 WBC 10.2 (4.0-11.0) 10^3/uL RBC 6.26 H (4.70-6.10) 10^6/uL Hgb 15.2 (14.0-18.0) g/dL Hct 48.9 (42.0-54.0) % MCV 78.1 L (80.0-94.0) fL MCH 24.3 L (25.9-34.0) pg MCHC 31.1 (29.9-35.2) g/dL RDW 17.6 H (11.0-15.0) % Plt Count 275 (150-450) 10^3/uL MPV 9.9 (9.5-13.5) fL Seg Neuts % (Manual) 90.0 Band Neutrophils % 3.0 (0-5) % Lymphocytes % (Manual) 1.0 L (20.5-60.0) % Monocytes % (Manual) 1.0 L (1.7-12.0) % Eosinophils % (Manual) 5.0 (0.9-7.0) % Basophils % (Manual) 0.0 L (0.2-2.0) % Neutrophils # (Manual) 9.18 H (1.4-6.5) 10^3/uL Band Neutrophils # 0.3 (0.0-0.3) 10^3/uL Lymphocytes # (Manual) 0.10 L (1.20-3.80) 10^3/uL Monocytes # (Manual) 0.10 L (0.30-0.80) 10^3/uL Eosinophils # (Manual) 0.51 (0.00-0.70) 10^3/uL Basophils # (Manual) 0.00 (0.00-0.10) 10^3/uL Anisocytosis 1+ Microcytosis 1+ Discharge Plan Discharge Chief Complaint: Nausea/Vomiting/Diarrhea Clinical Impression: Respiratory syncytial virus (RSV) bronchiolitis Patient Disposition: Home, Self-Care Time of Disposition Decision: 11:56 Prescriptions / Home Meds: No Action famotidine [Pepcid] 20 mg tablet 20 mg PO BID Qty: 10 0RF Steglatro 15 mg tablet 15 mg PO DAILY losartan 100 mg tablet 100 mg PO DAILY metformin 500 mg tablet extended release 24 hr 500 mg PO DAILY prednisone 20 mg tablet 40 mg PO DAILY 7 Days Qty: 14 0RF Additional Instructions: Albuterol inhaler 2 or 3 puffs every 4 hours for wheezing and tightness in the chest/Z-Efra as discussed Referrals: AINSLEY GILLETTE [Primary Care Provider] - 1 week Stand Alone Forms: Portal Instructions
[2023-08-23 11:19] LABS: Hematocrit 48.9 % (42.0-54.0); Hemoglobin 15.2 g/dL (14.0-18.0); Mean Corpuscular HGB Conc 31.1 g/dL (29.9-35.2); Mean Corpuscular Hemoglobin 24.3 pg (25.9-34.0); Mean Corpuscular Volume 78.1 fL (80.0-94.0); Mean Platelet Volume 9.9 fL (9.5-13.5); Platelet Count 275 10^3/uL (150-450); Red Blood Count 6.26 10^6/uL (4.70-6.10); Red Cell Distribution Width 17.6 % (11.0-15.0); White Blood Count 10.2 10^3/uL (4.0-11.0)
--- NOTE | 2023-08-23 11:24 | XR_ITS ---
The [address] [address] Patient Name: CECE SIERRA MRN: [id number] date: 1990 Sex: M Assigned Patient Location: ER Current Patient Location: ER Accession/Order Number: [id number] Exam Date: 08/23/2023 11:20 Report Date: 08/23/2023 11:29 At the request of: ONELIA VALENCIA Procedure: XR chest 1V EXAMINATION: XR chest 1V HISTORY: Cough COMPARISON: XR chest 06/18/2021 FINDINGS: LUNGS: No significant pulmonary parenchymal abnormalities. VASCULATURE: No increased pulmonary vasculature. PLEURA: No pneumothorax, effusion, or pleural thickening. CARDIAC: No cardiomegaly or cardiac silhouette abnormality. MEDIASTINUM: No visible mass or adenopathy. BONES: No fracture or visible bone lesion. OTHER: Negative. XR/XR chest 1V IMPRESSION: 1. No acute cardiopulmonary process. Electronically authenticated by: NEERAJ MAX Date: 08/23/2023 11:29
[2023-08-23 11:32] LABS: Anisocytosis 1+; Band Neutrophils Absolute 0.3 10^3/uL (0.0-0.3); Eosinophils Absolute Manual 0.51 10^3/uL (0.00-0.70); Microcytosis 1+; Segmented Neut Absolute Manual 9.18 10^3/uL (1.4-6.5)
[2023-08-23 12:12] LABS: Chloride 95 mmol/L (98-107); Potassium 4.4 mmol/L (3.5-5.1); Sodium 133 mmol/L (136-145)
[2023-08-23 12:13] LABS: Alanine Aminotransferase 12 U/L (16-63); Alkaline Phosphatase 77 U/L (46-116); Aspartate Amino Transferase 12 U/L (15-37); BUN Creatinine Ratio 18.3; Bilirubin Total 1.3 mg/dL (0.2-1.0); Carbon Dioxide 26.4 mmol/L (21.0-32.0); Estimated GFR (African America >60 (>=60); Estimated GFR (Non-African Ame >60 (>=60); Glucose 197 mg/dL (74-106)
[2023-08-23 12:14] LABS: Albumin Globulin Ratio 0.8; Albumin Level 3.2 g/dL (3.4-5.0); Globulin 3.8 g/dL
--- NOTE | 2023-08-23 15:33 | ECG_ITS ---
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
== END 2023-08-23 12:40 | disposition home or self-care (01) ==
PROVIDERS: Emergency Provider Emergency Medicine Emergency Medical Services; PCP Family Medicine
DX: J21.0 Acute bronchiolitis due to respiratory syncytial virus (principal); C85.90 Non-Hodgkin lymphoma, unspecified, unspecified site; Z79.60 Long term (current) use of unspecified immunomodulators and immunosuppressants; Z79.84 Long term (current) use of oral hypoglycemic drugs; R50.9 Fever, unspecified
CPT/HCPCS: 36415; 71045; 80053; 85007; 85027; 93005; 99284